=== PATIENT | female | born 1995 | race Two or more races ===

== ENCOUNTER 2021-06-17 22:34 | Emergency (ER) | payer MEDICARE, MEDICAID, SELFPAY ==
[2021-06-17 22:36] VITALS: BP 106/35; PULSE 70; RESP 16; TEMP 36.9; O2SAT 97; BMI 23.6
--- NOTE | 2021-06-17 22:47 | ED_ITS ---
HPI - Ear Problem General Chief complaint: Ear Problems Stated complaint: ear pain Time Seen by Provider: 06/17/21 22:47 Source: patient Mode of arrival: ambulatory Limitations: no limitations History of Present Illness HPI Narrative: Patient had a qtip in her ear and the qtip got pushed in. This happened yesterday. Complaint: ear pain and ear discharge Location: right ear Duration: constant Severity: mild Relieving factors: nothing Exacerbating factors: nothing Discharge from ear: yes - purulent Associated symptoms ear: decreased hearing Treatment prior to arrival: none Related Data Allergies Allergy/AdvReac Type Severity Reaction Status Date / Time No Known Allergies Allergy Verified 06/17/21 22:39 Review of Systems Constitutional: Constitutional: Reports no additional constitutional complaints Eyes: Eyes: Reports no additional eye complaints ENT: Denies dizziness Cardiovascular: Cardiovascular: Reports no additional cardiovascular complaints Respiratory: Respiratory: Reports as per HPI Gastrointestinal: Gastrointestinal: Reports no additional gastrointestinal complaints Genitourinary: Genitourinary: Reports no additional female genitourinary c omplaints Musculoskeletal: Musculoskeletal: Reports no additional musculoskeletal complaints Integumentary/Breasts: Skin/Breast: Denies rash Neurologic: Reports system reviewed and no additional complaints, except as documented, Denies dizziness and Denies Sensory deficit (Neuro) Psychiatric: Psychiatric: Denies anxiety [facility] Past Medical History Medical History No known health problems Seizure disorder Physical Exam Vital Signs: Vital Signs: Last Vital Signs Temp 98.5 F 06/17/21 22:36 Pulse 70 06/17/21 22:36 Resp 16 06/17/21 22:36 BP 106/35 L 06/17/21 22:36 Pulse Ox 97 06/17/21 22:36 Body Mass Index 23.6 Const: General: healthy appearing Nutritional Appearance: average body habitus Orientation/consciousness: oriented to person and patient oriented x3 Limitations: no limitations HENMT: Other: right and left TM are normal, no bleeding no discharge Head: Yes normal to inspection Ears: external ears normal General nose exam: Normal external nose present Mouth: Normal oral and palatal mucosa present and oropharynx normal Throat: Yes posterior oropharynx normal Eyes: General: appearance normal, both eyes and all related structures Neck: Other: supple Neck: Yes normal visual inspection Chest: Chest palpation & inspection: normal inspection of the chest Resp: Auscultation: clear to auscultation bilaterally Cardio: Jugular venous distension: no JVD Rate: regular rate Rhythm: regular rhythm Heart sounds: S1 normal heart sound present and S2 normal heart sound present GI: Inspection: Yes normal to inspection Palpation (GI): Soft to palpation, nontender and No hepatosplenomegaly present Auscultation: normal bowel sounds : General: Yes no CVA tenderness Back/Spine/Pelvis: Back: no CVA tenderness Skin: General skin exam: no rashes or lesions noted Neuro: General: oriented to person and patient oriented x3 Cranial nerves: Yes CN's II-XII intact bilaterally Motor exam (neuro): 5/5 motor strength present throughout Sensory Exam: No Sensory deficit (Neuro) Extrem: General: Yes normal to inspection Psych: Appearance: grossly normal Course Reevaluation(s) Reevaluation #1: no evidence of ear trauma will dc home Time: 22:53 Discharge Plan Discharge Clinical Impression: Otalgia Patient Disposition: Home, Self-Care Additional Instructions: tylenol or motrin for pain Referrals: Physician,Unknown [Primary Care Provider] - 10 days
[2021-06-17] MEDS: Ibuprofen 800 MG TABLET PO (23:04)
== END 2021-06-17 23:17 | disposition home or self-care (01) ==
LOC: HO.ED 23:01
PROVIDERS: Emergency Provider Emergency Medicine
DX: H92.01 Otalgia, right ear (principal)
CPT/HCPCS: 99283

== ENCOUNTER 2022-01-07 23:03 | Emergency (ER) | payer MEDICARE, MEDICAID, SELFPAY ==
--- NOTE | ~2022-01-07 | CT_ITS ---
EXAMINATION: CT ABDOMEN AND PELVIS WITH CONTRAST CLINICAL INFORMATION: Lower abdominal pain COMPARISON: None TECHNIQUE: Multidetector volumetric images were obtained from the superior aspect of the liver through the pubic symphysis following administration 85 mL of Omnipaque 350 intravenous contrast. Sagittal and coronal reformatted images were obtained on the technologist's workstation. Oral contrast: No This CT examination was performed using dose optimization techniques as appropriate, variously including the following: *Automated exposure control *Adjustment of mA and/or kV according to patient size (this includes techniques or standardized protocols for targeted exams where dose is matched to indication/reason for exam; i.e. extremities or head) *Use of iterative reconstruction technique DLP: 507 mGy-cm FINDINGS: LUNG BASES: The visualized lung bases are unremarkable. LIVER, GALLBLADDER, AND BILIARY TREE: The liver is normal in size, shape, and attenuation. No focal hepatic lesion or biliary ductal dilatation is present. The gallbladder is unremarkable with no evidence of radiopaque gallstones, gallbladder wall thickening, or obvious pericholecystic inflammatory changes. PANCREAS: Unremarkable. SPLEEN: Unremarkable. ADRENAL GLANDS: Unremarkable. KIDNEYS AND URETERS: Bilateral nephrograms are symmetric. No hydronephrosis or obstructing calculus identified. BLADDER: Unremarkable. GASTROINTESTINAL TRACT: No evidence of bowel obstruction or significant wall thickening. The appendix is unremarkable. No free fluid or free air is seen. ABDOMINAL WALL: No significant hernia is appreciated. LYMPH NODES: Normal. VASCULAR: Unremarkable. PELVIC VISCERA: Suggestion of arcuate versus septate configuration of the uterus. OSSEOUS STRUCTURES: Unremarkable. CT/CT abdomen pelvis w con IMPRESSION: 1. No acute findings identified in the abdomen/pelvis. 2. Suggestion of arcuate versus septate configuration of the uterus. If not already performed, this may be more definitively assessed with pelvic MRI. Fleischner guidelines were followed.
--- NOTE | ~2022-01-07 | CT_ITS ---
EXAMINATION: CT HEAD WITHOUT CONTRAST CLINICAL INFORMATION: Dizziness. Seizure. COMPARISON: None TECHNIQUE: Contiguous axial imaging was performed from the skull base to vertex without intravenous administration of contrast. This CT examination was performed using dose optimization techniques as appropriate, variously including the following: *Automated exposure control *Adjustment of mA and/or kV according to patient size (this includes techniques or standardized protocols for targeted exams where dose is matched to indication/reason for exam; i.e. extremities or head) *Use of iterative reconstruction technique DLP: 577 mGy-cm FINDINGS: There is no evidence of acute intracranial hemorrhage or territorial infarction. No abnormal mass effect or midline shift is seen. Bran to white matter differentiation is well preserved. No extra-axial fluid collections are identified. The ventricles are normal in size. There is no abnormal attenuation within the brain parenchyma. The osseous structures and soft tissues are normal. The mastoid air cells and visualized portions of the paranasal sinuses are well aerated. CT/CT head/brain wo con IMPRESSION: No acute intracranial pathology.
[2022-01-07 23:11] VITALS: BP 121/77; PULSE 80; O2SAT 100
--- NOTE | 2022-01-07 23:11 | ECG_ITS ---
Test Reason : SEIZURE Blood Pressure : / mmHG Vent. Rate : 089 BPM Atrial Rate : 089 BPM P-R Int : 152 ms QRS Dur : 086 ms QT Int : 380 ms P-R-T Axes : 074 064 052 degrees QTc Int : 462 ms Normal sinus rhythm Normal ECG No previous ECGs available Referred By: Clara Kwok Electronically Signed By:Stiven Modi
[2022-01-07 23:15] VITALS: BP 127/89; PULSE 109; RESP 18; O2SAT 99; BMI 25.6
--- NOTE | 2022-01-07 23:15 | ED_ITS ---
HPI - Abdominal Pain General Chief Complaint: Seizure Stated Complaint: abdominal pain/ seizure Time Seen by Provider: 01/07/22 23:04 Source: patient and EMS Mode of arrival: EMS Limitations: other (not speaking) History of Present Illness HPI narrative: has seizures while she sleeps takes no medications has seen neurologists told her tests were normal and doesn't need medications MD elicited complaint: abdominal pain (c/o pain at 1 year old c- section site then reportedly had GTC seizure for 10 minutes at home per EMS no prior seizures per family no trauma) Pertinent past history: none Onset (ago): week(s) (1 week ago started with irregular vaginal bleeding with large blood clots, prior LMP just a couple weeks earlier she is not on OCPs) Pain Consistency: intermittent Location: pelvis Severity: mild Quality: cramping Radiation: none Migration to: no migration Exacerbating factors: nothing Relieving factors: nothing Associated symptoms: nausea Related Data Allergies Allergy/AdvReac Type Severity Reaction Status Date / Time No Known Allergies Allergy Verified 06/17/21 22:39 Review of Systems Review of Systems Constitutional : No Weight loss, No Fever, No Chills ENT/Mouth : No sore throat, No Rhinorrhea Eyes: No Swelling, No Redness Cardiovascular : No Chest Pain, No SOB, NoEdema Respiratory : No Cough, No Sputum, No Wheezing Gastrointestinal : Positive Nausea, no Vomiting, no Diarrhea, positive abdominal Pain, No Hematochezia, No Melena Genitourinary : No Dysuria, No Urinary Frequency, No Hematuria, No Urgency, pos irregular bleeding Musculoskeletal : No joint pain, No Myalgias, No Joint Swelling Skin : No Skin Lesions, No rash Neuro : No Weakness, No Numbness, No Dizziness, No Headache, pos seizure activity Psych : No Anxiety/Panic, No Depression Heme/Lymph: No Bruising, No Lymphadenopathy Endocrine : No Polyuria, No Polydipsia All other systems reviewed and are negative. Physical Exam Vital Signs: Vital Signs: Last Vital Signs Pulse 77 01/08/22 06:37 Resp 14 01/08/22 06:37 BP 124/74 01/08/22 06:37 Pulse Ox 98 01/08/22 06:37 BMI result Body Mass Index 25.6 Appearance: Alert. Oriented X3. No acute distress. initially didn't cooperate but then started to talk - she was purposeful when she came in would not allow her arm to fall on her face, moved away from stimuli Eyes: Pupils equal, round and reactive to light. ENT: Pharynx normal. Neck: Normal inspection. Neck supple. CVS: Normal heart rate and rhythm. Pulses normal. Respiratory: No respiratory distress. Breath sounds normal. Abdomen: Soft and mild suprapubic no rebound or guarding : no vaginal bleeding noted Skin: Skin warm and dry. Normal skin color. Normal skin turgor. Extremities: No lower extremity edema. No calf ttp Neuro: Oriented X 3. No motor deficit. No sensory deficit. Course Course Course Narrative: stable H/H will need outpatient US of uterus, will start on provera no sig hemorrhage here patient without vaginal bleeding here GCS 15, sleepy but easily woken c/o dizziness and seizure activity - has had work up in the past including what sounds like EEG and MRI she is still slightly dizzy no seizure activity here - returned to baseline, will obtain CT head to r/o mass. denies STI concerns, UA negative, will hydrate and DC after IVF patient had another shaking episode but was not postictal and had no incontinence, no nystagmus, no tongue biting it was localized to RLE, she cannot tell us much about why she came off seizure meds - she isn't sure what she was on but states she has a reaction to white pills in the past and told she didn't need pills. signed out to Dr. Correa pending CT scan of brain MDM - Abdominal Pain MDM Narrative Medical decision making narrative: 26 yo female with reported sleep seizures here with 2 complaints - one is irregular vaginal bleeding will need quant test, CT scan given pain at incision site for infection/seroma though unlikely. Also reports chronic seizures for which she has seen neurology and told she doesn't need medications has no head trauma no focal deficits and is at baseline. Dispo per results and findings. Lab Data Result diagrams: 01/07/22 23:30 01/07/22 23:30 Labs: Lab Results 01/07/22 01/07/22 01/07/22 Range/Units 23:30 23:30 23:30 WBC 9.3 (4.8-10.8) X10*3/uL RBC 4.33 (4.20-5.50) X10*6/uL Hgb 13.0 (12.0-16.0) g/dl Hct 39.0 (37.0-47.0) % MCV 90.1 (80.0-98.0) fL MCH 30.0 (27.0-33.0) pg MCHC 33.3 (31.0-35.0) g/dl RDW 12.2 (11.0-16.0) % Plt Count 284 (160-400) X10*3/uL MPV 10.3 (9.4-12.3) fL Immature Gran % (Auto) 0.3 (0.0-0.4) % Neut % (Auto) 65.7 (45-73) % Lymph % (Auto) 26.7 (20-40) % [place] % (Auto) 5.8 (2-11) % Eos % (Auto) 1.2 (0-4) % Baso % (Auto) 0.3 (0-2) % Lymph # (Auto) 2.5 (1.2-4.9) X10*3/uL [place] # (Auto) 0.5 (0.1-1.2) X10*3/uL Eos # (Auto) 0.1 (0.0-0.4) X10*3/uL Baso # (Auto) 0.0 (0.0-0.2) X10*3/uL Abs Immat Gran (auto) 0.03 (0.00-0.03) X10*3/uL Absolute Neuts (auto) 6.1 (2.0-8.3) x10*3/uL Absolute Nucleated RBC 0.000 (0.0-0.012) X10*3/uL Nucleated RBC % (auto) 0.0 (0.0-0.2) /100WBC VBG pH (7.32-7.43) VBG pCO2 mmHg VBG pO2 mmHg VBG HCO3 (22-26) mmol/L VBG O2 Saturation % VBG Base Excess mmol/L Sodium 138 (135-145) mmol/L Potassium 3.8 (3.3-5.1) mmol/L Chloride 104 (96-108) mmol/L Carbon Dioxide 26 (22-29) mmol/L Anion Gap 12 (12-20) BUN 11 (9-16) mg/dL Creatinine 0.80 (0.5-1.4) mg/dL Estim Creat Clear Calc 99.9 Estimated GFR > 60 Random Glucose 120 H (60-115) mg/dL Calcium 9.5 (8.4-10.2) mg/dL Magnesium 1.7 (1.6-2.6) mg/dL Total Bilirubin 0.9 (0.0-1.0) mg/dL Direct Bilirubin 0.4 (0.0-0.5) mg/dL AST 14 (5-31) U/L ALT 7 (0-31) U/L Alkaline Phosphatase 74 (39-117) U/L Ammonia 29 (13-55) umol/L Total Protein 7.1 (6.5-8.0) g/dL Albumin 4.4 (3.5-5.0) g/dL Lipase 17 (8-78) U/L Beta HCG, Quant mIU/mL Urine Color Urine Appearance Urine pH (5.0-8.0) Ur Specific [place] (1.005-1.025) Urine Protein (NEG-TRACE) MG/DL Urine Glucose (UA) (NEG) MG/DL Urine Ketones (NEG) MG/DL Urine Blood (NEG) Urine Nitrite (NEG) Ur Leukocyte Esterase (NEG) Urine Opiates Screen (Not Detect) Urine Fentanyl Screen (Not Detect) Ur Barbiturates Screen (Not Detect) Ur Phencyclidine Scrn (Not Detect) Ur Amphetamines Screen (Not Detect) U Benzodiazepines Scrn (Not Detect) Urine Cocaine Screen (Not Detect) U Marijuana (THC) Screen (Not Detect) Ethyl Alcohol mg/dL COVID-19 (HOSSEIN) (Negative) COVID-19 Clin Com 01/07/22 01/07/22 01/07/22 Range/Units 23:30 23:30 23:30 WBC (4.8-10.8) X10*3/uL RBC (4.20-5.50) X10*6/uL Hgb (12.0-16.0) g/dl Hct (37.0-47.0) % MCV (80.0-98.0) fL MCH (27.0-33.0) pg MCHC (31.0-35.0) g/dl RDW (11.0-16.0) % Plt Count (160-400) X10*3/uL MPV (9.4-12.3) fL Immature Gran % (Auto) (0.0-0.4) % Neut % (Auto) (45-73) % Lymph % (Auto) (20-40) % [place] % (Auto) (2-11) % Eos % (Auto) (0-4) % Baso % (Auto) (0-2) % Lymph # (Auto) (1.2-4.9) X10*3/uL [place] # (Auto) (0.1-1.2) X10*3/uL Eos # (Auto) (0.0-0.4) X10*3/uL Baso # (Auto) (0.0-0.2) X10*3/uL Abs Immat Gran (auto) (0.00-0.03) X10*3/uL Absolute Neuts (auto) (2.0-8.3) x10*3/uL Absolute Nucleated RBC (0.0-0.012) X10*3/uL Nucleated RBC % (auto) (0.0-0.2) /100WBC VBG pH (7.32-7.43) VBG pCO2 mmHg VBG pO2 mmHg VBG HCO3 (22-26) mmol/L VBG O2 Saturation % VBG Base Excess mmol/L Sodium (135-145) mmol/L Potassium (3.3-5.1) mmol/L Chloride (96-108) mmol/L Carbon Dioxide (22-29) mmol/L Anion Gap (12-20) BUN (9-16) mg/dL Creatinine (0.5-1.4) mg/dL Estim Creat Clear Calc Estimated GFR Random Glucose (60-115) mg/dL Calcium (8.4-10.2) mg/dL Magnesium (1.6-2.6) mg/dL Total Bilirubin (0.0-1.0) mg/dL Direct Bilirubin (0.0-0.5) mg/dL AST (5-31) U/L ALT (0-31) U/L Alkaline Phosphatase (39-117) U/L Ammonia (13-55) umol/L Total Protein (6.5-8.0) g/dL Albumin (3.5-5.0) g/dL Lipase (8-78) U/L Beta HCG, Quant < 2 mIU/mL Urine Color Urine Appearance Urine pH (5.0-8.0) Ur Specific [place] (1.005-1.025) Urine Protein (NEG-TRACE) MG/DL Urine Glucose (UA) (NEG) MG/DL Urine Ketones (NEG) MG/DL Urine Blood (NEG) Urine Nitrite (NEG) Ur Leukocyte Esterase (NEG) Urine Opiates Screen (Not Detect) Urine Fentanyl Screen (Not Detect) Ur Barbiturates Screen (Not Detect) Ur Phencyclidine Scrn (Not Detect) Ur Amphetamines Screen (Not Detect) U Benzodiazepines Scrn (Not Detect) Urine Cocaine Screen (Not Detect) U Marijuana (THC) Screen (Not Detect) Ethyl Alcohol < 10 mg/dL COVID-19 (HOSSEIN) Negative (Negative) COVID-19 Clin Com See Note 01/07/22 01/08/22 01/08/22 Range/Units 23:38 06:04 06:04 WBC (4.8-10.8) X10*3/uL RBC (4.20-5.50) X10*6/uL Hgb (12.0-16.0) g/dl Hct (37.0-47.0) % MCV (80.0-98.0) fL MCH (27.0-33.0) pg MCHC (31.0-35.0) g/dl RDW (11.0-16.0) % Plt Count (160-400) X10*3/uL MPV (9.4-12.3) fL Immature Gran % (Auto) (0.0-0.4) % Neut % (Auto) (45-73) % Lymph % (Auto) (20-40) % [place] % (Auto) (2-11) % Eos % (Auto) (0-4) % Baso % (Auto) (0-2) % Lymph # (Auto) (1.2-4.9) X10*3/uL [place] # (Auto) (0.1-1.2) X10*3/uL Eos # (Auto) (0.0-0.4) X10*3/uL Baso # (Auto) (0.0-0.2) X10*3/uL Abs Immat Gran (auto) (0.00-0.03) X10*3/uL Absolute Neuts (auto) (2.0-8.3) x10*3/uL Absolute Nucleated RBC (0.0-0.012) X10*3/uL Nucleated RBC % (auto) (0.0-0.2) /100WBC VBG pH 7.42 (7.32-7.43) VBG pCO2 35 mmHg VBG pO2 73 mmHg VBG HCO3 23 (22-26) mmol/L VBG O2 Saturation 95.0 % VBG Base Excess -0.5 mmol/L Sodium (135-145) mmol/L Potassium (3.3-5.1) mmol/L Chloride (96-108) mmol/L Carbon Dioxide (22-29) mmol/L Anion Gap (12-20) BUN (9-16) mg/dL Creatinine (0.5-1.4) mg/dL Estim Creat Clear Calc Estimated GFR Random Glucose (60-115) mg/dL Calcium (8.4-10.2) mg/dL Magnesium (1.6-2.6) mg/dL Total Bilirubin (0.0-1.0) mg/dL Direct Bilirubin (0.0-0.5) mg/dL AST (5-31) U/L ALT (0-31) U/L Alkaline Phosphatase (39-117) U/L Ammonia (13-55) umol/L Total Protein (6.5-8.0) g/dL Albumin (3.5-5.0) g/dL Lipase (8-78) U/L Beta HCG, Quant mIU/mL Urine Color YELLOW Urine Appearance CLEAR Urine pH 6.5 (5.0-8.0) Ur Specific [place] 1.010 (1.005-1.025) Urine Protein NEG (NEG-TRACE) MG/DL Urine Glucose (UA) NEG (NEG) MG/DL Urine Ketones NEG (NEG) MG/DL Urine Blood NEG (NEG) Urine Nitrite NEG (NEG) Ur Leukocyte Esterase NEG (NEG) Urine Opiates Screen Not Detected (Not Detect) Urine Fentanyl Screen Not Detected (Not Detect) Ur Barbiturates Screen Not Detected (Not Detect) Ur Phencyclidine Scrn Not Detected (Not Detect) Ur Amphetamines Screen Not Detected (Not Detect) U Benzodiazepines Scrn Not Detected (Not Detect) Urine Cocaine Screen Not Detected (Not Detect) U Marijuana (THC) Screen Not Detected (Not Detect) Ethyl Alcohol mg/dL COVID-19 (HOSSEIN) (Negative) COVID-19 Clin Com ECG Data Attestation: I personally reviewed and interpreted this ECG as follows: ECG interpretation date: 01/07/22 ECG interpretation time: 23:23 Interpretation: Rate: 89 Rhythm: NSR [place]: normal Normal P waves. Normal RAFAEL. Normal QRS complex. ST T wave : normal no SONIA qTC: normal prior studies: no acute ischemia The study has been interpreted contemporaneously by me. Discharge Plan Discharge Clinical Impression: Generalized seizure, DUB (dysfunctional uterine bleeding) Patient Disposition: Home, Self-Care Instructions: Dysfunctional Uterine Bleeding (ED), Recurrent Seizures in Adults (ED) Additional Instructions: return to ED for any worsening symptoms or concerns please follow up with your OBGYN and Neurologist as soon as possible stay with responsible adult for the next 24 hours no anemia, negative blood test for Referrals: Catracho Rodriguez MD [Physician] - 1 week Stand Alone Forms: Work/School Release [facility] Past Medical History Attestation statement: The following information was validated with the patient. Medical History No known health problems Seizure disorder Surgical History H/O section Social History Social History (Updated 01/08/22 @ 00:28 by Clara Kwok DO) Patient Tobacco Use Status: Never used Tobacco Advance Directives: No Patient : No
[2022-01-07 23:40] LABS: Basophils Percent Auto 0.3 % (0-2); Eosinophils Absolute Auto 0.1 X10*3/uL (0.0-0.4); Eosinophils Percent Auto 1.2 % (0-4); Imm Gran Abs Auto 0.03 X10*3/uL (0.00-0.03); Imm Gran Pct Auto 0.3 % (0.0-0.4); Lymphocytes Absolute Auto 2.5 X10*3/uL (1.2-4.9); Lymphocytes Percent Auto 26.7 % (20-40); MANUAL DIFF FLAG NO; Mean Corpuscular HGB Conc 33.3 g/dl (31.0-35.0); Mean Corpuscular Volume 90.1 fL (80.0-98.0); Mean Platelet Volume 10.3 fL (9.4-12.3); Monocytes Absolute Auto 0.5 X10*3/uL (0.1-1.2); Monocytes Percent Auto 5.8 % (2-11); Neutrophils Absolute Auto 6.1 x10*3/uL (2.0-8.3); Neutrophils Percent Auto 65.7 % (45-73); Platelet Count 284 X10*3/uL (160-400); Red Blood Count 4.33 X10*6/uL (4.20-5.50); Red Cell Distribution Width 12.2 % (11.0-16.0); White Blood Count 9.3 X10*3/uL (4.8-10.8)
[2022-01-07 23:45] LABS: VBG Base Excess -0.5 mmol/L; VBG HCO3 23 mmol/L (22-26); VBG pCO2 35 mmHg; VBG pH 7.42 (7.32-7.43); VBG pO2 73 mmHg
[2022-01-07 23:45] LABS: Venous Blood Gas Refer to POC result
[2022-01-07 23:48] LABS: Ammonia 29 umol/L (13-55)
[2022-01-07 23:59] LABS: COVID-19 Test Negative (Negative); IDNOW Serial# 9DD0AD1C
[2022-01-08 00:06] LABS: Ethanol < 10 mg/dL
--- NOTE | 2022-01-08 00:07 | PC.NURSE ---
pt sister called and pt states it is okay to give information to her per pt. sister Vi [phone]
[2022-01-08 00:09] LABS: Alanine Aminotransferase 7 U/L (0-31); Albumin Level 4.4 g/dL (3.5-5.0); Alkaline Phosphatase 74 U/L (39-117); Anion Gap 12 (12-20); Aspartate Amino Transferase 14 U/L (5-31); Bilirubin Direct 0.4 mg/dL (0.0-0.5); Bilirubin Total 0.9 mg/dL (0.0-1.0); Blood Urea Nitrogen 11 mg/dL (9-16); Calcium 9.5 mg/dL (8.4-10.2); Carbon Dioxide 26 mmol/L (22-29); Chloride 104 mmol/L (96-108); Creatinine Clr Calc Pharmacy 99.9; Estimated Glomerular Filt Rate > 60; Glucose Random 120 mg/dL (60-115); Lipase 17 U/L (8-78); Magnesium 1.7 mg/dL (1.6-2.6); Potassium 3.8 mmol/L (3.3-5.1); Sodium 138 mmol/L (135-145); Total Protein 7.1 g/dL (6.5-8.0)
--- NOTE | 2022-01-08 00:09 | PC.NURSE ---
pt and pt sister both stated pt has had a c section 2 years ago and never followed up with doctor. pt has been passing clots for one week and has had abd pain. pt is alert and oriented with no distress noted. vitals stble.
[2022-01-08 00:15] LABS: HCG Quantitative < 2 mIU/mL
[2022-01-08] MEDS: iohexoL 350 MG/ML 100 ML INFUS..BTL 85 ML IV (00:48)
[2022-01-08] MEDS: Ketorolac Tromethamine 15 MG/ML VIAL IVPUSH (01:07)
[2022-01-08] MEDS: 0.9 % Sodium Chloride 500 ML IV (01:08)
[2022-01-08 02:45] VITALS: BP 95/48; PULSE 78; RESP 12; O2SAT 97
[2022-01-08 02:46] VITALS: BP 105/47; PULSE 80; RESP 14
[2022-01-08 04:31] VITALS: BP 97/42; PULSE 64; RESP 14; O2SAT 97
[2022-01-08 06:01] VITALS: BP 104/60; PULSE 93; RESP 17; O2SAT 95
[2022-01-08 06:12] LABS: Appearance Urine CLEAR; Color Urine YELLOW; Glucose Urine UA NEG (NEG); Leukocyte Esterase Urine NEG (NEG); Nitrite Urine NEG (NEG); PH 6.5 (5.0-8.0); Urine Blood NEG (NEG); Urine Ketones NEG (NEG); Urine Protein NEG (NEG-TRACE)
[2022-01-08 06:29] LABS: Amphetamine Screen Urine Not Detected (Not Detect); Barbiturates, Urine Not Detected (Not Detect); Benzodiazepines Screen Urine Not Detected (Not Detect); Cannabinoid Screen Urine Not Detected (Not Detect); Cocaine Screen Urine Not Detected (Not Detect); Fentanyl, urine Not Detected (Not Detect); Opiate Screen Urine Not Detected (Not Detect); Phencyclidine Screen Urine Not Detected (Not Detect)
[2022-01-08 06:37] VITALS: BP 124/74; PULSE 77; RESP 14; O2SAT 98
[2022-01-08 09:35] VITALS: BP 101/54; PULSE 87; RESP 18; O2SAT 99
== END 2022-01-08 11:21 | disposition home or self-care (01) ==
PROVIDERS: Emergency Medicine; Emergency Provider Emergency Medicine Emergency Medical Services
DX: G40.409 Other generalized epilepsy and epileptic syndromes, not intractable, without status epilepticus (principal); N93.8 Other specified abnormal uterine and vaginal bleeding; Z20.822 Contact with and (suspected) exposure to COVID-19
CPT/HCPCS: 36415; 70450; 74177; 80048; 80076; 80307; 81003; 82077; 82140; 82803; 83690; 83735; 84702; 85025; 87635; 93005; 96361; 96374; 96375; 99284; J1885; Q9967

== ENCOUNTER 2022-04-13 22:00 | Emergency (ER) | payer MEDICARE, MEDICAID, SELFPAY ==
--- NOTE | 2022-04-13 | ECG_ITS ---
Test Reason : chest pain Blood Pressure : / mmHG Vent. Rate : 067 BPM Atrial Rate : 067 BPM P-R Int : 154 ms QRS Dur : 082 ms QT Int : 442 ms P-R-T Axes : 058 039 039 degrees QTc Int : 467 ms Normal sinus rhythm Normal ECG When compared with ECG of 07-JAN-2022 23:09, No significant change was found Referred By: Generic ED Physician Electronically Signed By:ISAIAH CRUZ
[2022-04-13 22:29] VITALS: BP 105/51; PULSE 82; RESP 18; TEMP 36.4; O2SAT 100; BMI 22.6
[2022-04-13 22:38] LABS: MANUAL DIFF FLAG NO
[2022-04-13 22:39] LABS: Basophils Percent Auto 0.6 % (0-2); Eosinophils Absolute Auto 0.2 X10*3/uL (0.0-0.4); Eosinophils Percent Auto 2.1 % (0-4); Hematocrit 37.4 % (37.0-47.0); Hemoglobin 12.4 g/dl (12.0-16.0); Imm Gran Abs Auto 0.02 X10*3/uL (0.00-0.03); Imm Gran Pct Auto 0.3 % (0.0-0.4); Lymphocytes Absolute Auto 1.9 X10*3/uL (1.2-4.9); Lymphocytes Percent Auto 26.9 % (20-40); Mean Corpuscular HGB Conc 33.2 g/dl (31.0-35.0); Mean Corpuscular Hemoglobin 30.1 pg (27.0-33.0); Mean Corpuscular Volume 90.8 fL (80.0-98.0); Mean Platelet Volume 10.3 fL (9.4-12.3); Monocytes Absolute Auto 0.5 X10*3/uL (0.1-1.2); Neutrophils Absolute Auto 4.5 x10*3/uL (2.0-8.3); Neutrophils Percent Auto 63.1 % (45-73); Platelet Count 233 X10*3/uL (160-400); Red Blood Count 4.12 X10*6/uL (4.20-5.50); Red Cell Distribution Width 12.4 % (11.0-16.0); White Blood Count 7.1 X10*3/uL (4.8-10.8)
[2022-04-13 23:01] LABS: Alanine Aminotransferase 12 U/L (0-31); Albumin Level 4.3 g/dL (3.5-5.0); Alkaline Phosphatase 82 U/L (39-117); Anion Gap 10 (12-20); Aspartate Amino Transferase 14 U/L (5-31); Bilirubin Total 1.4 mg/dL (0.0-1.0); Blood Urea Nitrogen 13 mg/dL (9-16); Calcium 9.6 mg/dL (8.4-10.2); Carbon Dioxide 27 mmol/L (22-29); Chloride 108 mmol/L (96-108); Creatinine Clr Calc Pharmacy 77.9; Estimated Glomerular Filt Rate > 60; Glucose Random 75 mg/dL (60-115); Potassium 3.9 mmol/L (3.3-5.1); Sodium 141 mmol/L (135-145); Total Protein 7.1 g/dL (6.5-8.0)
[2022-04-13 23:07] LABS: Troponin-I High Sensitivity < 3.5 ng/L (<3.5-17.0)
== END 2022-04-14 07:15 | disposition left against medical advice (07) ==
PROVIDERS: Emergency Provider Emergency Medicine
DX: R07.9 Chest pain, unspecified (principal); R42 Dizziness and giddiness
CPT/HCPCS: 36415; 80053; 84484; 85025; 93005; 99281; 99283

== ENCOUNTER 2022-08-27 20:12 | Emergency (ER) | payer OTHER, SELFPAY ==
[2022-08-27 20:24] VITALS: BP 106/34; PULSE 67; RESP 18; TEMP 37.2; O2SAT 98; BMI 32.3
[2022-08-27 20:36] LABS: MANUAL DIFF FLAG NO
[2022-08-27 20:38] LABS: Basophils Absolute Auto 0.1 X10*3/uL (0.0-0.2); Basophils Percent Auto 0.6 % (0-2); Eosinophils Absolute Auto 0.1 X10*3/uL (0.0-0.4); Eosinophils Percent Auto 1.3 % (0-4); Hematocrit 37.8 % (37.0-47.0); Hemoglobin 12.4 g/dl (12.0-16.0); Imm Gran Abs Auto 0.04 X10*3/uL (0.00-0.03); Imm Gran Pct Auto 0.4 % (0.0-0.4); Lymphocytes Absolute Auto 2.9 X10*3/uL (1.2-4.9); Lymphocytes Percent Auto 29.4 % (20-40); Mean Corpuscular HGB Conc 32.8 g/dl (31.0-35.0); Mean Corpuscular Volume 88.5 fL (80.0-98.0); Mean Platelet Volume 10.2 fL (9.4-12.3); Monocytes Absolute Auto 0.6 X10*3/uL (0.1-1.2); Monocytes Percent Auto 5.7 % (2-11); Neutrophils Absolute Auto 6.2 x10*3/uL (2.0-8.3); Neutrophils Percent Auto 62.6 % (45-73); Platelet Count 273 X10*3/uL (160-400); Red Blood Count 4.27 X10*6/uL (4.20-5.50); Red Cell Distribution Width 13.4 % (11.0-16.0); White Blood Count 9.9 X10*3/uL (4.8-10.8)
[2022-08-27 20:55] LABS: COVID-19 Test Negative (Negative)
[2022-08-27 21:13] LABS: Alanine Aminotransferase 14 U/L (0-31); Albumin Level 4.5 g/dL (3.5-5.0); Alkaline Phosphatase 81 U/L (39-117); Anion Gap 16 (12-20); Aspartate Amino Transferase 16 U/L (5-31); Bilirubin Direct 0.4 mg/dL (0.0-0.5); Bilirubin Total 1.2 mg/dL (0.0-1.0); Blood Urea Nitrogen 17 mg/dL (9-16); Calcium 9.3 mg/dL (8.4-10.2); Carbon Dioxide 22 mmol/L (22-29); Chloride 106 mmol/L (96-108); Creatinine Clr Calc Pharmacy 97.4; Estimated Glomerular Filt Rate > 60; Glucose Random 90 mg/dL (60-115); Lipase 25 U/L (8-78); Potassium 3.8 mmol/L (3.3-5.1); Sodium 140 mmol/L (135-145); Total Protein 7.5 g/dL (6.5-8.0)
[2022-08-27 21:37] VITALS: BP 113/47; PULSE 75; RESP 18; TEMP 36.8; O2SAT 100
[2022-08-27 21:51] LABS: Appearance Urine Clear; Color Urine Yellow; Glucose Urine UA Negative (Negative); Leukocyte Esterase Urine Small (1+) (Negative); Nitrite Urine Negative (Negative); PH 6.5 (5.0-9.0); Specific Gravity - Urine 1.025 (1.005-1.025); UMIC TRIGGER UACC YES; Urine Blood Trace (Negative); Urine Ketones Negative (Negative); Urine Protein Negative (Neg-Trace)
[2022-08-27 21:54] LABS: UPreg QC Valid YES; Urine Pregnancy NEGATIVE (NEGATIVE)
[2022-08-27 22:09] LABS: Bacteria Urine Trace (None Seen); Hyaline Casts Urine 0-2 /LPF (0-2); UACC Culture Trigger YES; WBC Urine 0-5 /HPF (0-5)
[2022-08-27 22:20] VITALS: BP 108/48; PULSE 66; RESP 15; O2SAT 100
--- OUTSIDE RECORDS SUMMARY | 2022-08-27 22:25 | XMS_ITS | Continuity of Care Document ---
:1995 Author Organization [facility] Address [address] [place] [address]- Care Team Providers Name Role Phone Jose L MIDDLETON, Anel Primary Care Physician Encounter [facility] [place] Date(s): 01/27/21 - 02/26/21 [facility] [address] [place] [id number] Allergies, Adverse Reactions, Alerts No Known Medication Allergies Immunizations Given and Recorded Vaccine Date Status Refusal Reason influenza virus vaccine, inactivated 09/13/18 Given influenza virus vaccine, inactivated 09/06/16 Given influenza virus vaccine, inactivated 09/27/13 Given tetanus/diphtheria/pertussis, acel(Tdap) 02/15/17 Given Influenza Vaccine (oldterm)1 07/24/12 Given Influenza Vaccine (oldterm)2 10/02/08 Given Human Papillomavirus Vaccine3 07/24/12 Given Human Papillomavirus Vaccine4 10/02/08 Given Human Papillomavirus Vaccine 07/20/07 Given Meningococcal Polysaccharide Vaccine5 07/24/12 Given Varicella Virus Vaccine6 07/24/12 Given Varicella Virus Vaccine 07/20/07 Given Tet/Diphth/Acel, Pertussis (oldterm) 07/20/07 Given Meningococcal Conjugate Vaccine 07/20/07 Given Poliovirus Vaccine, Inactivated7 11/17/98 Given Poliovirus Vaccine, Inactivated 11/25/97 Given Poliovirus Vaccine, Inactivated 06/24/95 Given Poliovirus Vaccine, Inactivated 04/24/95 Given Poliovirus Vaccine, Inactivated 94 Given Diphth/Pertussis, Whl Cell/Tet(oldterm) 11/17/98 Given Diphth/Pertussis, Whl Cell/Tet(oldterm) 06/11/96 Given Diphth/Pertussis, Whl Cell/Tet(oldterm)8 06/24/95 Given Diphth/Pertussis, Whl Cell/Tet(oldterm) 04/24/95 Given Diphth/Pertussis, Whl Cell/Tet(oldterm) 94 Given Measles/Mumps/Rubella Virus Vaccine 11/25/97 Given Measles/Mumps/Rubella Virus Vaccine 06/24/95 Given Haemophilus B Conj Vaccine (oldterm) 06/24/95 Given Haemophilus B Conj Vaccine (oldterm) 04/24/95 Given Haemophilus B Conj Vaccine (oldterm) 94 Given Hepatitis B Vaccine (old term) 04/24/95 Given Hepatitis B Vaccine (old term) 94 Given Hepatitis B Vaccine (old term) 94 Given 1Admin Note: vis given 05/29/[id number] Note: VIS [id number] Note: vis given Admin Note: VIS [id number] Note: VIS Admin Note: VIS 02/08/2008 7Admin Note: hx varicella '[id number] Note: as default missing dates doc. Medications Chloraseptic 6 mg-10 mg mucous membrane lozenge 1 lozenge, By Mouth, Every 2 hours, PRN for sore throat, # 18 each, 1 Refills, Maintenance, 07/15/2012:28:00 EDT, Lozenge, [id number], 1 lozenge By Mouth Every 2 hours,PRN:for sore throat, 155, cm, 06/10/20 8:28:00 EDT, Height, 77, k... Start Date: 07/15/20 Status: Ordered Problem List Condition Effective Dates Status Health Status Informant Learning difficulties(Confirmed) Active Myopia(Confirmed) Active Vitamin D deficiency(Confirmed) 01/30/14 Active Social History Social History Type Response Tobacco Use: 4 or less cigarettes(le ss than 1/4 pack)/day in last 30 days. Sex Female
--- OUTSIDE RECORDS SUMMARY | 2022-08-27 22:25 | XMS_ITS | Continuity of Care Document ---
:1994 Author Organization [facility] Address [address] [place] [id number]- Care Team Providers Name Role Phone Anel Domingo MD Primary Care Physician [facility]counter [facility] Date(s): 06/10/21 - 07/10/21 [facility] [address] [place] [id number] Allergies, Adverse Reactions, Alerts No Known Medication Allergies Immunizations Given and Recorded Vaccine Date Status Refusal Reason influenza virus vaccine, inactivated 09/13/18 Given influenza virus vaccine, inactivated 09/06/16 Given influenza virus vaccine, inactivated 09/14/14 Recorded influenza virus vaccine, inactivated 09/27/13 Given tetanus/diphtheria/pertussis, [...] term) 94 Given 1Admin Note: vis given 05/29/201278808Mopvl Note: VIS Xoqjn7Yohmc Note: vis given Admin Note: VIS Rbemo0Lusnw Note: VIS Admin Note: VIS 02/08/2008 7Admin Note: hx varicella '8Admin Note: as default missing dates doc. Medications Chloraseptic 6 mg-10 mg mucous membrane lozenge 1 lozenge, By Mouth, Every 2 hours, PRN for sore throat, # 18 each, 1 Refills, Maintenance, 07/15/2012:28:00 EDT, Lozenge, [facility] #[id number], 1 lozenge By Mouth Every 2 hours,PRN:for sore throat, 155, cm, 06/10/20 8:28:00 EDT, Height, 77, k... Start Date: 07/15/20 Status: OrderedTEGretol XR 200 mg oral tablet, extended release 1 tablet = 200 mg, By Mouth, 2 times a day, Px by Neurology Dr Clarisa Mcfarland MD, # 60 tablet, 0 Refills, Maintenance, 04/05/21 14:49:00 EDT, ER Tablet, Partial fill upon patient request if the prescription is for a schedule II opioid drug. Start Date: 04/05/21 Status: OrderedTylenol 8 Hour 650 mg oral tablet, extended release 1 tablet = 650 mg, By Mouth, Every 8 hours, PRN as needed for pain, # 50 tablet, 0 Refills, Maintenance, 04/02/21 13:41:00 EDT, ER Tablet, [facility] #[id number], Partial fill upon patient requestif the prescription is for a schedule II opioid d... Start Date: 04/02/21 Status: Ordered Problem List Condition Effective Dates Status Health Status Informant Learning difficulties(Confirmed) Active Myopia(Confirmed) Active On EEG.(Confirmed) Active Vitamin D deficiency(Confirmed) 01/30/14 Active Social History Social History Type Response Tobacco Use: 4 or less cigarettes(le ss than 1/4 pack)/day in last 30 days. Sex Female
--- OUTSIDE RECORDS SUMMARY | 2022-08-27 22:25 | XMS_ITS | Continuity of Care Document ---
:1994 Author Organization [facility] Address [address] [place] [address]- Care Team Providers Name Role Phone Anel Domingo MD Primary Care Physician Encounter [facility] [place] Date(s): 01/27/21 - 02/26/[address] [address] Attending Physician: Maco Torres Admitting Physician: Maco Torres Referring Physician: Maco Torres Allergies, Adverse Reactions, Alerts No Known Medication [...] term) 94 Given 1Admin Note: vis given 05/29/201291308Lszeb Note: VIS Lkzdw9Giiim Note: vis given Admin Note: VIS Sycld1Clibn Note: VIS Admin Note: VIS 02/08/2008 7Admin Note: hx varicella '948Admin Note: as default missing dates doc. Medications Chloraseptic 6 mg-10 mg mucous membrane lozenge 1 lozenge, By Mouth, Every 2 hours, PRN for sore throat, # 18 each, 1 Refills, Maintenance, 07/15/2012:28:00 EDT, Lozenge, [facility][id number], 1 lozenge By Mouth Every 2 hours,PRN:for [...]
--- OUTSIDE RECORDS SUMMARY | 2022-08-27 22:25 | XMS_ITS | Continuity of Care Document ---
:1994 Author Organization [facility] Address [address] [place] [address]- Care Team Providers Name Role Phone Jose L MIDDLETON, Anel Primary Care Physician [facility]counter [facility] Date(s): 10/27/21 - 11/26/21 [facility] [address] [place] [id number] Attending Physician: Maco Torres Admitting Physician: Maco Torres Referring Physician: AdmtrMaco Allergies, Adverse Reactions, Alerts Substance Reaction Severity Status TEGretol XR Active Immunizations Given and Recorded Vaccine Date Status [...] term) 94 Given 1Admin Note: vis given 05/29/201279484Mvgwt Note: VIS Ybnxt4Vriac Note: vis given Admin Note: VIS Tmytc1Elyij Note: VIS Admin Note: VIS 02/08/2008 7Admin Note: hx varicella '948Admin Note: as default missing dates doc. Medications hydrOXYzine pamoate 25 mg oral capsule 1 capsule = 25 mg, By Mouth, 4 times a day, PRN for anxiety, # 40 capsule, 0 Refills, Maintenance, 09/25/21 10:24:00 EDT, Capsule, [facility] #[id number], Partial fill upon patient request if the prescription is for a schedule II opioid drug., 15... Start Date: 09/25/21 Status: OrderedLexapro 5 mg oral tablet 1 tablet = 5 mg, By Mouth, Daily, # 30 tablet, 0 Refills, Maintenance, 10/16/21 10:17:00 EST, Tablet, [facility] #[id number], Partial fill upon patient request if the prescription is for a schedule II opioid drug., 155, cm, 10/16/21 9:35:00 EST,... Start Date: 10/16/21 Status: Orderedmelatonin 3 mg oral tablet, extended release 1 tablet = 3 mg, By Mouth, Daily at bedtime, PRN as needed for insomnia, # 15 tablet, 0 Refills, Maintenance, 09/25/21 10:24:00 EDT, ER Tablet, [facility] #[id number], Partial fill upon patient request if the prescription is for a schedule II opi... Start Date: 09/25/21 Status: Orderednaproxen 500 mg oral tablet 1 tablet, By Mouth, 2 times a day, PRN NEEDED FOR MILD PAIN, # 60 tablet, 0 Refills, Maintenance,09/25/21 10:27:00 EDT, [facility] #[id number], 155, cm, 09/25/21 9:35:00 EDT, Height Start Date: 09/25/21 Status: Ordered Problem List Condition Effective Dates Status Health Status Informant Anxiety(Confirmed) Active Benign essential tremor - head stef, Active hand; different than seizures(Confirmed) Learning difficulties(Confirmed) Active Myopia(Confirmed) Active Falls frequently(Confirmed) Active On EEG.(Confirmed) Active Seizure disorder on EEG 03/17/2021, Active daily, focal and generalized; Dr. Mcfarland; patient declines f/u with Dr. Pozo, side effect to tegretol(Confirmed) Vitamin D deficiency(Confirmed) 01/30/14 Active Social History Social History Type Response Tobacco Use: 4 or less cigarettes(le ss than 1/4 pack)/day in last 30 days. Sex Female
--- OUTSIDE RECORDS SUMMARY | 2022-08-27 22:25 | XMS_ITS | Continuity of Care Document ---
:1994 Author Organization [facility] Address [address] [place] [address]- Care Team Providers Name Role Phone Jose L MIDDLETON, Anel Primary Care Physician [place] [facility] [place] 07/06/20 [facility] [address] [place] [address] [facility] Allergies, Adverse Reactions, Alerts No Known Medication [...] term) 94 Given 1Admin Note: vis given 05/29/201220988Duzcf Note: VIS Lsoil1Qepwj Note: vis given Admin Note: VIS Lijtf6Lscmp Note: VIS Admin Note: VIS 02/08/2008 7Admin Note: hx varicella '948Admin Note: as default missing dates doc. Medications naproxen 500 mg oral tablet 1 tablet = 500 mg, By Mouth, 2 times a day, PRN Pain , Mild, # 60 tablet, 1 Refills, Maintenance, 10/10/19 20:11:33 EST, Tablet Start Date: 10/10/19 Status: OrderedPNV oral tablet 1 tablet, By Mouth, Daily, # 30 tablet, 6 Refills, Maintenance, 07/23/19 15:33:35 EDT, 1 tablet By Mouth Daily,x30 days Start Date: 07/23/19 Stop Date: 02/18/20 Status: OrderedXulane 150 mcg-35 mcg/24 hr transdermal film, extended release 1 patch, Topically, Every week, # 3 each, 11 Refills, Maintenance, 04/23/20 16:52:00 EDT, [facility] #[id number], 1 patch Topically Every week, 154, cm, 04/23/20 16:13:00 EDT, Height, 77, kg, 03/03/19 4:10:00 EDT, Dry Weight Start Date: 04/23/20 Status: Ordered Problem List Condition Effective Dates Status Health Status Informant Learning difficulties(Confirmed) Active Vitamin D deficiency(Confirmed) 01/30/14 Active Social History Social History Type Response Tobacco Use: 4 or less cigarettes(le ss than 1/4 pack)/day in last 30 days. Sex Female
--- OUTSIDE RECORDS SUMMARY | 2022-08-27 22:25 | XMS_ITS | Continuity of Care Document ---
:1994 Author Organization [facility] Address [address] [place] [address]- Care Team Providers Name Role Phone Anel Domingo MD Primary Care Physician Encounter [facility] [place] Date(s): 12/03/20 - 01/02/21 [facility] [address] [place] [id number] Attending Physician: Maco Torres [...] term) 94 Given 1Admin Note: vis given 05/29/201230616Eyaae Note: VIS Jdnpi2Piizt Note: vis given Admin Note: VIS Wqemz2Aslrz Note: VIS Admin Note: VIS 02/08/2008 7Admin Note: hx varicella '8Admin Note: as default missing dates doc. Medications Chloraseptic 6 mg-10 mg mucous membrane lozenge 1 lozenge, By Mouth, Every 2 hours, PRN for sore throat, # 18 each, 1 Refills, Maintenance, 07/15/2012:28:00 EDT, Lozenge, [facility] #[id number], 1 lozenge By Mouth Every 2 hours,PRN:for [...]
--- OUTSIDE RECORDS SUMMARY | 2022-08-27 22:25 | XMS_ITS | Continuity of Care Document ---
:1994 Author Organization [facility] Address [address] [place] [address]- Care Team Providers Name Role Phone Jose L MIDDLETON, Anel Primary Care Physician [place] [facility] [place] Date(s): 09/03/20 - 10/03/20 [facility] [address] [place] [id number] Allergies, Adverse Reactions, Alerts No Known [...] term) 94 Given 1Admin Note: vis given 05/29/201236870Aerkk Note: VIS Yhpjs0Dnikf Note: vis given Admin Note: VIS Yezqo1Snjez Note: VIS Admin Note: VIS 02/08/2008 7Admin Note: hx varicella '948Admin Note: as default missing dates doc. Medications Chloraseptic 6 mg-10 mg mucous membrane lozenge 1 lozenge, By Mouth, Every 2 hours, PRN for sore throat, # 18 each, 1 Refills, Maintenance, 07/15/2012:28:00 EDT, Lozenge, [facility] #[id number], 1 lozenge By Mouth Every 2 hours,PRN:for [...]
--- OUTSIDE RECORDS SUMMARY | 2022-08-27 22:25 | XMS_ITS | Continuity of Care Document ---
:1994 Author Organization [facility] Address [address] [place] [address]- Care Team Providers Name Role Phone Jose L MIDDLETON, Anel Primary Care Physician Encounter [facility] Date(s): 12/05/20 - 01/04/[address] [address] Attending Physician: Maco Torres Admitting Physician: Maco Torres Referring Physician: AdmtrMaco Allergies, Adverse Reactions, Alerts No Known Medication [...] term) 94 Given 1Admin Note: vis given 05/29/201277220Tigis Note: VIS Wgkko0Fxyik Note: vis given Admin Note: VIS Vchwe5Aclib Note: VIS Admin Note: VIS 02/08/2008 7Admin Note: hx varicella '948Admin Note: as default missing dates doc. Medications Chloraseptic 6 mg-10 mg mucous membrane lozenge 1 lozenge, By Mouth, Every 2 hours, PRN for sore throat, # 18 each, 1 Refills, Maintenance, 07/15/2012:28:00 EDT, Lozenge, [facility] #[id number], 1 lozenge By Mouth Every 2 hours,PRN:for [...]
--- OUTSIDE RECORDS SUMMARY | 2022-08-27 22:25 | XMS_ITS | Continuity of Care Document ---
:1994 Author Organization [facility] Address [address] [place] [address]- Care Team Providers Name Role Phone Jose L MIDDLETON, Anel Primary Care Physician Encounter [facility] Date(s): 06/05/20 - 06/05/[address] [address] [facility] Discharge Disposition: A-D/C Home Attending Physician: Shaunna Mojica MD Admitting Physician: Shaunna Mojica MD Referring Physician: Not on Staff, Referring MD Allergies, Adverse Reactions, Alerts No Known Medication [...] term) 94 Given 1Admin Note: vis given 05/29/201249713Mwrac Note: VIS [id number] Note: vis given Admin Note: VIS [id number] Note: VIS Admin Note: VIS 02/08/2008 7Admin [...] each, 11 Refills, Maintenance, 04/23/20 16:52:00 EDT, [facility] #[id number], 1 patch Topically Every week, 154, cm, 04/23/20 16:13:00 EDT, Height, 77, kg, 03/03/19 4:10:00 EDT, Dry Weight Start Date: 04/23/20 Status: Ordered Problem List Condition Effective Dates Status Health Status Informant Learning difficulties(Confirmed) Active Vitamin D deficiency(Confirmed) 01/30/14 Active Vital Signs Most recent to oldest 1 2 3 4 [Reference Range]: Height 155 cm (06/05/20 5:33 PM) Oxygen Saturation 100 % 100 % 100 % 99 % [94-100 %] (06/05/20 8:50 PM) (06/05/20 7:51 PM) (06/05/20 5:34 PM) (06/05/20 5:34 PM) Pulse Rate [55-90 bpm] 74 bpm 72 bpm 76 bpm 79 bp m (06/05/20 8:50 PM) (06/05/20 7:51 PM) (06/05/20 5:34 PM) (06/05/20 5:34 PM) Blood Pressure 116/70 mm Hg 108/72 mm Hg 112/64 mm Hg 108/56 mm Hg [90-138/55-84 mm Hg] (06/05/20 8:50 PM) (06/05/20 7:51 PM) (06/05/20 5:34 PM) (06/05/20 5:34 PM) Respiratory Rate 18 br/min 16 br/min 16 br/min 18 br/min [16-30 br/min] (06/05/20 8:50 PM) (06/05/20 7:51 PM) (06/05/20 5:34 PM) ( 06/05/20 5:34 PM) Temperature 98.6 DegF 98.4 DegF 98.8 DegF 98.8 DegF [96.8-100.4 DegF] (06/05/20 8:50 PM) (06/05/20 7:51 PM) (06/05/20 5:34 PM ) (06/05/20 5:34 PM) Mode of Delivery Room air Room air Room air Room air (Oxygen) (06/05/20 8:50 PM) (06/05/20 7:51 PM) (06/05/20 5:34 PM) (06/05/20 5:34 PM) Blood pressure sites Arm, right Arm, right Arm, right Arm, le ft (06/05/20 8:50 PM) (06/05/20 7:51 PM) (06/05/20 5:34 PM) (06/05/20 5:34 PM) Temperature Route Oral Oral Oral Oral (06/05/20 8:50 PM) (06/05/20 7:51 PM) (06/05/20 5:34 PM) (06/05/20 5:34 PM) Social History Social History Type Response Tobacco Use: 4 or less cigarettes(le ss than 1/4 pack)/day in last 30 days. Sex Female
--- OUTSIDE RECORDS SUMMARY | 2022-08-27 22:25 | XMS_ITS | Continuity of Care Document ---
:1994 Author Organization [facility] Address [address] [place] [address]- Care Team Providers Name Role Phone Jose L MIDDLETON, Anel Primary Care Physician [place] [facility] [place](s): 10/02/21 - 01/03/22 [facility] [address] [place] [id number] Attending Physician: Not on Staff, Attending MD Referring Physician: Anel Domingo MD Allergies, Adverse Reactions, Alerts Substance Reaction Severity [...] term) 94 Given 1Admin Note: vis given 05/29/201200107Cvmpg Note: VIS Tcudw7Ufgex Note: vis given Admin Note: VIS Zqxjr9Lnpbt Note: VIS Admin Note: VIS 02/08/2008 7Admin Note: hx varicella '948Admin Note: as default missing dates doc. Medications hydrOXYzine pamoate 25 mg oral capsule 1 capsule = 25 mg, By Mouth, 4 times a day, PRN for anxiety, # 40 capsule, 0 Refills, Maintenance, 09/25/21 10:24:00 EDT, Capsule, [facility] #[id number], Partial fill upon patient request if the prescription is for a schedule II opioid drug., 15... Start Date: 09/25/21 Status: OrderedlevETIRAcetam 500 mg oral tablet 1 tablet = 500 mg, By Mouth, 2 times a day, # 60 tablet, 5 Refills, Maintenance, 12/04/21 10:54:00 EST, Tablet, [facility] #[id number], Partial fill upon patient request if the prescription is fora schedule II opioid drug., 155, cm, 10/16/21 9:3... Start Date: 12/04/21 Status: OrderedLexapro 5 mg oral tablet 1 tablet = 5 mg, By Mouth, Daily, # 30 tablet, 0 Refills, Maintenance, 10/16/21 10:17:00 EST, Tablet, [facility] #[id number], Partial fill upon patient request if the prescription is for a schedule II opioid drug., 155, cm, 10/16/21 9:35:00 EST,... Start Date: 10/16/21 Status: Orderedmelatonin 3 mg oral tablet, extended release 1 tablet = 3 mg, By Mouth, Daily at bedtime, PRN as needed for insomnia, # 15 tablet, 0 Refills, Maintenance, 09/25/21 10:24:00 EDT, ER Tablet, [facility] #[id number], Partial fill upon patient request if the prescription is for a schedule II opi... Start Date: 09/25/21 Status: Orderednaproxen 500 mg oral tablet 1 tablet, By Mouth, 2 times a day, PRN NEEDED FOR MILD PAIN, # 60 tablet, 0 Refills, Maintenance,09/25/21 10:27:00 EDT, [facility] #[id number], 155, cm, 09/25/21 9:35:00 EDT, Height Start [...]
--- OUTSIDE RECORDS SUMMARY | 2022-08-27 22:25 | XMS_ITS | Continuity of Care Document ---
:1994 Author Organization [facility] Address [address] [place] [address]- Care Team Providers Name Role Phone Jose L MIDDLETON, Anel Primary Care Physician Encounter [facility] [place] Date(s): 07/26/22 - 08/25/22 [facility] [address] [place] [id number] Allergies, Adverse Reactions, Alerts Substance Reaction Severity [...] term) 94 Given 1Admin Note: vis given 05/29/201245439Pzpzy Note: VIS Eihrc2Nwcmp Note: vis given Admin Note: VIS Uwjcq9Tdprx Note: VIS Admin Note: VIS 02/08/2008 7Admin Note: hx varicella '948Admin Note: as default missing dates doc. Medications Apri 0.15 mg-0.03 mg oral tablet 1 tablet, By Mouth, Daily, # 84 tablet, 0 Refills, Maintenance, 07/21/22 22:20:00 EDT, Tablet, [facility] #[id number], Partial fill upon patient request if the prescription is for a schedule II opioid drug., 1 tablet By Mouth Daily, 155, cm, 04/28... Start Date: 07/21/22 Status: Orderedfamotidine 20 mg oral tablet 20 mg, 1, tablet, By Mouth, 2 times a day, PRN, # 60 tablet, Refills 0, Tot. Refills 0, Maintenance,Dyspepsia, 07/09/22 13:05:00 EDT, Route to Pharmacy Electronically, [facility] #[id number], Partial fill upon patient request if the prescription... Start Date: 07/09/22 Status: OrderedlevETIRAcetam 500 mg oral tablet 1 tablet = 500 mg, By Mouth, 2 times a day, # 60 tablet, 5 Refills, Maintenance, 04/23/22 9:29:00 EDT, Tablet, [facility] #[id number], Partial fill upon patient request if the prescription is for a schedule II opioid drug., 155, cm, 04/23/22 9:04... Start Date: 04/23/22 Status: Ordered Problem List Condition Confirmation Course Effective Dates Status Health Stat us Informant Anxiety Confirmed Active Benign essential Confirmed Active tremor - head stef, hand; different than seizures Learning Confirmed Active difficulties Myopia Confirmed Active Falls frequently Confirmed Active On EEG. Confirmed Active Seizure disorder on Confirmed Active EEG 03/17/2021, daily, focal and generalized; Dr. Mcfarland; patient declines f/u with Dr. Pozo, side effect to tegretol Vitamin D Confirmed 01/30/14 Active deficiency Social History Social History Type Response Tobacco Use: 4 or less cigarettes(le ss than 1/4 pack)/day in last 30 days. Sex Female Patient Care team information PersonnelName: Jose L MIDDLETON, Anel Address: Address: [address] [place] [address]-
--- OUTSIDE RECORDS SUMMARY | 2022-08-27 22:25 | XMS_ITS | Continuity of Care Document ---
:1994 Author Organization [facility] Address [address] [place] [address]- Care Team Providers Name Role Phone Jose L MIDDLETON, Anel Primary Care Physician Encounter [facility] Date(s): 06/10/20 - 07/10/[address] [address]- [facility] Allergies, Adverse Reactions, Alerts No [...] term) 94 Given 1Admin Note: vis given 05/29/201204915Ohsds Note: VIS Jxtym8Vujdq Note: vis given Admin Note: VIS Odsxk4Wburo Note: VIS Admin Note: VIS 02/08/2008 7Admin [...] each, 11 Refills, Maintenance, 04/23/20 16:52:00 EDT, [facility] #[id number], 1 patch Topically Every week, 154, cm, [...]
--- OUTSIDE RECORDS SUMMARY | 2022-08-27 22:25 | XMS_ITS | Continuity of Care Document ---
:1994 Author Organization [facility] Address [address] [place] [address]- Care Team Providers Name Role Phone Jose L MIDDLETON, Anel Primary Care Physician Encounter [facility] [place] Date(s): 04/23/22 - 05/29/22 [facility] [address] [place] [id number] Attending Physician: Not on Staff, Attending MD Allergies, Adverse Reactions, Alerts Substance Reaction [...] term) 94 Given 1Admin Note: vis given 05/29/201213553Kccmn Note: VIS Lkmib0Kgdtw Note: vis given Admin Note: VIS Dlifu7Jrksv Note: VIS Admin Note: VIS 02/08/2008 7Admin Note: hx varicella '8Admin Note: as default missing dates doc. Medications famotidine 20 mg oral tablet 20 mg, 1, tablet, By Mouth, 2 times a day, PRN, # 60 tablet, Refills 0, Tot. Refills 0, Maintenance,Dyspepsia, 05/12/22 15:04:00 EDT, Route to Pharmacy Electronically, [facility] #[id number], Partial fill upon patient request if the prescription... Start Date: 05/12/22 Status: OrderedlevETIRAcetam 500 mg oral tablet 1 tablet = 500 mg, By Mouth, 2 times a day, # 60 tablet, 5 Refills, Maintenance, 04/23/22 9:29:00 EDT, Tablet, [facility] #[id number], Partial fill upon patient request if the prescription is for a schedule II opioid drug., 155, cm, 04/23/22 9:04... Start Date: 04/23/22 Status: Ordered Problem List Condition Effective Dates [...]
--- OUTSIDE RECORDS SUMMARY | 2022-08-27 22:25 | XMS_ITS | Continuity of Care Document ---
:1994 Author Organization [facility] Address [address] [place] [address]- Care Team Providers Name Role Phone Jose L Lema MD Primary Care Physician Encounter [facility] [place] Date(s): 02/01/20 - 05/31/[address] [address]- [facility] Attending Physician: Not on Staff, Attending MD Referring Physician: Jose L Lema MD Allergies, Adverse Reactions, Alerts No Known [...] term) 94 Given 1Admin Note: vis given 05/29/201258812Vkxkq Note: VIS Wjgjg1Oxdvx Note: vis given Admin Note: VIS Pibas5Cwhjq Note: VIS Admin Note: VIS 02/08/2008 7Admin [...] each, 11 Refills, Maintenance, 04/23/20 16:52:00 EDT, [facility] #[id number], 1 patch Topically Every week, 154, cm, [...]
--- OUTSIDE RECORDS SUMMARY | 2022-08-27 22:26 | XMS_ITS | Continuity of Care Document ---
:1994 Author Organization [facility] Address [address] [place] [address]- Care Team Providers Name Role Phone Jose L Lema MD Primary Care Physician Encounter [facility] Date(s): 03/27/20 - 04/03/20 [facility] [address] [place] [id number] [facility] Attending Physician: Lulu MIDDLETON, Bry Obrien Allergies, Adverse Reactions, Alerts No Known Medication [...] term) 94 Given 1Admin Note: vis given 05/29/201258932Kzzjx Note: VIS Guiej9Qavfm Note: vis given Admin Note: VIS Gjktn4Vwwrw Note: VIS Admin Note: VIS 02/08/2008 7Admin [...] Start Date: 07/23/19 Stop Date: 02/18/20 Status: OrderedSprintec 0.25 mg-35 mcg oral tablet 1 tablet, By Mouth, Daily, # 84 tablet, 4 Refills, Maintenance, 02/01/20 13:19:00 EST, Tablet, [facility] #[id number], 1 tablet By Mouth Daily, 154, cm, 02/01/20 12:51:00 EST, Height, 77, kg, 03/03/19 4:10:00 EDT, Dry Weight Start Date: 02/01/20 Status: Ordered Problem List Condition Effective Dates Status Health Status Informant Learning difficulties(Confirmed) Active Social History Social History Type Response Tobacco Use: 4 or less cigarettes(le ss than 4 pack)/day in last 30 days. Sex Female
--- OUTSIDE RECORDS SUMMARY | 2022-08-27 22:26 | XMS_ITS | Continuity of Care Document ---
:1994 Author Organization [facility] Address [address] [place] [address]- Care Team Providers Name Role Phone Anel Domingo MD Primary Care Physician [place] [facility] [place] - 07/21/[address] [address] Discharge Disposition: A-D/C Home Attending Physician: Alia Paez MD Admitting Physician: Alia Paez MD Referring Physician: Alia Paez MD Allergies, Adverse Reactions, Alerts Substance Reaction [...] term) 94 Given 1Admin Note: vis given 05/29/201290728Mjkcu Note: VIS [id number] Note: vis given Admin Note: VIS Ttbhe8Xerqc Note: VIS Admin Note: VIS 02/08/2008 7Admin Note: hx varicella '948Admin Note: as default missing dates doc. Medications Apri 0.15 mg-0.03 mg oral tablet 1 tablet, By Mouth, Daily, # 84 tablet, 0 Refills, Maintenance, 07/21/22 22:20:00 EDT, Tablet, [facility] #[id number], Partial fill upon patient request if the prescription is for a schedule II opioid drug., 1 tablet By Mouth Daily, 155, cm, 04/28... Start Date: 07/21/22 Status: Orderedfamotidine 20 mg oral tablet 20 mg, 1, tablet, By Mouth, 2 times a day, PRN, # 60 tablet, Refills 0, Tot. Refills 0, Maintenance,Dyspepsia, 07/09/22 13:05:00 EDT, Route to Pharmacy Electronically, [facility] #[id number], Partial fill upon patient request if the prescription... Start Date: 07/09/22 Status: OrderedlevETIRAcetam 500 mg oral tablet 1 tablet = 500 mg, By Mouth, 2 times a day, # 60 tablet, 5 Refills, Maintenance, 04/23/22 9:29:00 EDT, Tablet, [facility] #[id number], Partial fill upon patient request if the [...] to tegretol(Confirmed) Vitamin D deficiency(Confirmed) 01/30/14 Active Vital Signs Most recent to oldest [Reference Range]: 1 Weight 68.9 kg (07/21/22 8:51 PM) Oxygen Saturation [94-100 %] 100 % (07/21/22 8:51 PM) Pulse Rate [55-90 bpm] 74 bpm (07/21/22 8:51 PM) Blood Pressure [90-138/55-84 mm Hg] 106/54 mm Hg (07/21/22 8:51 PM) Respiratory Rate [16-30 br/min] 18 br/min (07/21/22 8:51 PM) Temperature [96.8-100.4 DegF] 98.1 DegF (07/21/22 8:51 PM) Mode of Delivery (Oxygen) Room air (07/21/22 8:51 PM) Blood pressure sites Arm, right (07/21/22 8:51 PM) Temperature Route Oral (07/21/22 8:51 PM) Dry Weight 68.9 kg (07/21/22 8:51 PM) Weight Obtained Via Standing scale (07/21/22 8:51 PM) Dry Weight Obtained Via Standing scale (07/21/22 8:51 PM) Social History Social History Type Response Tobacco Use: 4 or less cigarettes(le ss than 1/4 pack)/day in last 30 days. Sex Female
--- OUTSIDE RECORDS SUMMARY | 2022-08-27 22:26 | XMS_ITS | Continuity of Care Document ---
:1994 Author Organization [facility] Address [address] [place] [address]- Care Team Providers Name Role Phone Jose L MIDDLETON, Anel Primary Care Physician Encounter [facility] Date(s): 07/22/22 - 08/26/[address] [address] Attending Physician: Not on Staff, Attending MD [...] term) 94 Given 1Admin Note: vis given 05/29/201264960Qcpcs Note: VIS Fqqxf7Fpuus Note: vis given Admin Note: VIS Wepqf9Nffdm Note: VIS Admin Note: VIS 02/08/2008 7Admin Note: hx varicella '948Admin Note: as default missing dates doc. Medications Apri 0.15 mg-0.03 mg oral tablet 1 tablet, By Mouth, Daily, # 84 tablet, 0 Refills, Maintenance, 07/21/22 22:20:00 EDT, Tablet, [facility] #[id number], Partial fill upon patient request if the prescription is for a schedule II opioid drug., 1 tablet By Mouth Daily, 155, cm, 04/28... Start Date: 07/21/22 Status: Orderedfamotidine 20 mg oral tablet 20 mg, 1, tablet, By Mouth, 2 times a day, PRN, # 60 tablet, Refills 0, Tot. Refills 0, Maintenance,Dyspepsia, 07/09/22 13:05:00 EDT, Route to Pharmacy Electronically, [facility] #[id number], Partial fill upon patient request if the prescription... Start Date: 07/09/22 Status: OrderedlevETIRAcetam 500 mg oral tablet 1 tablet = 500 mg, By Mouth, 2 times a day, # 60 tablet, 5 Refills, Maintenance, 04/23/22 9:29:00 EDT, Tablet, [facility] #[id number], Partial fill upon patient request if the [...] PersonnelName: Jose L MIDDLETON, Anel Address: Address: [address] [place] [address]
--- OUTSIDE RECORDS SUMMARY | 2022-08-27 22:26 | XMS_ITS | Continuity of Care Document ---
:1994 Author Organization [facility] Address [address] [place] [address]- Care Team Providers Name Role Phone Anel Domingo MD Primary Care Physician [place] [facility] [place] 04/23/20 - 06/08/[address] [address]- [facility] Attending Physician: Not on Staff, Attending MD [...] term) 94 Given 1Admin Note: vis given 05/29/201216696Cphkt Note: VIS [id number] Note: vis given Admin Note: VIS [id number] Note: VIS Admin Note: VIS 02/08/2008 7Admin [...] each, 11 Refills, Maintenance, 04/23/20 16:52:00 EDT, [facility] #[id number], 1 patch Topically Every week, 154, cm, [...]
--- OUTSIDE RECORDS SUMMARY | 2022-08-27 22:26 | XMS_ITS | Continuity of Care Document ---
:1994 Author Organization [facility] Address [address] [facility], 3rd Floor, [address] [place] [address]- Care Team Providers Name Role Phone Anel Domingo MD Primary Care Physician [place] [facility] [place] 08/[place]20 - 09/20/20 [facility] [address] [facility], [address]rd Floor, [address] [place] [address] [facility] Allergies, Adverse Reactions, Alerts No [...] term) 94 Given 1Admin Note: vis given 05/29/201249252Wzcng Note: VIS Skbqz7Xegxb Note: vis given Admin Note: VIS Votez5Eipmi Note: VIS Admin Note: VIS 02/08/2008 7Admin Note: hx varicella '948Admin Note: as default missing dates doc. Medications Chloraseptic 6 mg-10 mg mucous membrane lozenge 1 lozenge, By Mouth, Every 2 hours, PRN for sore throat, # 18 each, 1 Refills, Maintenance, 07/15/2012:28:00 EDT, Lozenge, [facility] #[id number], 1 lozenge By Mouth Every 2 hours,PRN:for [...]
--- OUTSIDE RECORDS SUMMARY | 2022-08-27 22:26 | XMS_ITS | Continuity of Care Document ---
:1994 Author Organization [facility] Address [address] [place] [address]- Care Team Providers Name Role Phone Jose L MIDDLETON, Anel Primary Care Physician Encounter [facility] Date(s): 12/11/21 - 03/21/22 [facility] [address] [place] [address] Attending Physician: Not on Staff, Attending MD [...] term) 94 Given 1Admin Note: vis given 05/29/201267190Gfenv Note: VIS Bckkd8Lbmlu Note: vis given Admin Note: VIS [id number] Note: VIS Admin Note: VIS 02/08/2008 7Admin Note: hx varicella '948Admin Note: as default missing dates doc. Medications Apri 0.15 mg-0.03 mg oral tablet 1 tablet, By Mouth, Daily, # 84 tablet, 3 Refills, Maintenance, 01/11/22 9:44:00 EST, Tablet, [facility] #[id number], Partial fill upon patient request if the prescription is for a schedule II opioid drug., 1 tablet By Mouth Daily, 155, cm, 01/11... Start Date: 01/11/22 Status: OrderedhydrOXYzine pamoate 25 mg oral capsule 1 capsule = 25 mg, By Mouth, 4 times a day, PRN for anxiety, # 40 capsule, 0 Refills, Maintenance, 09/25/21 10:24:00 EDT, Capsule, [facility] #[id number], Partial fill upon patient request if the prescription is for a schedule II opioid drug., 15... Start Date: 09/25/21 Status: OrderedlevETIRAcetam 500 mg oral tablet 1 tablet = 500 mg, By Mouth, 2 times a day, # 60 tablet, 5 Refills, Maintenance, 12/04/21 10:54:00 EST, Tablet, [facility] #[id number], Partial fill upon patient request if the prescription is fora schedule II opioid drug., 155, cm, 10/16/21 9:3... Start Date: 12/04/21 Status: OrderedLexapro 5 mg oral tablet 1 tablet = 5 mg, By Mouth, Daily, # 30 tablet, 0 Refills, Maintenance, 10/16/21 10:17:00 EST, Tablet, [facility] #[id number], Partial fill upon patient request if the prescription is for a schedule II opioid drug., 155, cm, 10/16/21 9:35:00 EST,... Start Date: 10/16/21 Status: Orderedmelatonin 3 mg oral tablet, extended release 1 tablet = 3 mg, By Mouth, Daily at bedtime, PRN as needed for insomnia, # 15 tablet, 0 Refills, Maintenance, 09/25/21 10:24:00 EDT, ER Tablet, [facility] #[id number], Partial fill upon patient request if the prescription is for a schedule II opi... Start Date: 09/25/21 Status: Orderednaproxen 500 mg oral tablet 1 tablet, By Mouth, 2 times a day, PRN NEEDED FOR MILD PAIN, # 60 tablet, 0 Refills, Maintenance,09/25/21 10:27:00 EDT, [facility] #[id number], 155, cm, 09/25/21 9:35:00 EDT, Height Start [...]
--- OUTSIDE RECORDS SUMMARY | 2022-08-27 22:26 | XMS_ITS | Continuity of Care Document ---
:1994 Author Organization [facility] Address [address] [place] [address]- Care Team Providers Name Role Phone Jose L MIDDLETON, Anel Primary Care Physician Encounter [facility] Date(s): 03/15/22 - 04/14/[address] [address] Attending Physician: Maco Torres Admitting Physician: AdmMaco street Referring Physician: AdmtrMaco Allergies, Adverse Reactions, Alerts [...] term) 94 Given 1Admin Note: vis given 05/29/201277240Wwyrb Note: VIS [id number] Note: vis given Admin Note: VIS [id number] Note: VIS Admin Note: VIS 02/08/2008 7Admin Note: hx varicella '948Admin Note: as default missing dates doc. Medications Apri 0.15 mg-0.03 mg oral tablet 1 tablet, By Mouth, Daily, # 84 tablet, 3 Refills, Maintenance, 01/11/22 9:44:00 EST, Tablet, [facility] #[id number], Partial fill upon patient request if the prescription is for a schedule II opioid drug., 1 tablet By Mouth Daily, 155, cm, 01/11... Start Date: 01/11/22 Status: OrderedhydrOXYzine pamoate 25 mg oral capsule 1 capsule = 25 mg, By Mouth, 4 times a day, PRN for anxiety, # 40 capsule, 0 Refills, Maintenance, 09/25/21 10:24:00 EDT, Capsule, [facility] #[id number], Partial fill upon patient request if the prescription is for a schedule II opioid drug., 15... Start Date: 09/25/21 Status: OrderedlevETIRAcetam 500 mg oral tablet 1 tablet = 500 mg, By Mouth, 2 times a day, # 60 tablet, 5 Refills, Maintenance, 12/04/21 10:54:00 EST, Tablet, [facility] #[id number], Partial fill upon patient request if the prescription is fora schedule II opioid drug., 155, cm, 10/16/21 9:3... Start Date: 12/04/21 Status: OrderedLexapro 5 mg oral tablet 1 tablet = 5 mg, By Mouth, Daily, # 30 tablet, 0 Refills, Maintenance, 10/16/21 10:17:00 EST, Tablet, [facility] #[id number], Partial fill upon patient request if the prescription is for a schedule II opioid drug., 155, cm, 10/16/21 9:35:00 EST,... Start Date: 10/16/21 Status: Orderedmelatonin 3 mg oral tablet, extended release 1 tablet = 3 mg, By Mouth, Daily at bedtime, PRN as needed for insomnia, # 15 tablet, 0 Refills, Maintenance, 09/25/21 10:24:00 EDT, ER Tablet, [facility] #[id number], Partial fill upon patient request if the prescription is for a schedule II opi... Start Date: 09/25/21 Status: Orderednaproxen 500 mg oral tablet 1 tablet, By Mouth, 2 times a day, PRN NEEDED FOR MILD PAIN, # 60 tablet, 0 Refills, Maintenance,09/25/21 10:27:00 EDT, [facility] #[id number], 155, cm, 09/25/21 9:35:00 EDT, Height Start [...]
--- OUTSIDE RECORDS SUMMARY | 2022-08-27 22:26 | XMS_ITS | Continuity of Care Document ---
:1994 Author Organization [facility] Address [address] [place] [address]- Care Team Providers Name Role Phone Jose L MIDDLETON, Anel Primary Care Physician Encounter [facility] Date(s): 10/27/21 - 11/26/21 [facility] [address] [place] [id number] Allergies, Adverse Reactions, Alerts Substance Reaction [...] term) 94 Given 1Admin Note: vis given 05/29/201207699Ywqbo Note: VIS Vkfrj8Qfssp Note: vis given Admin Note: VIS Gabqz2Ebttd Note: VIS Admin Note: VIS 02/08/2008 7Admin Note: hx varicella '948Admin Note: as default missing dates doc. Medications hydrOXYzine pamoate 25 mg oral capsule 1 capsule = 25 mg, By Mouth, 4 times a day, PRN for anxiety, # 40 capsule, 0 Refills, Maintenance, 09/25/21 10:24:00 EDT, Capsule, [facility] #[id number], Partial fill upon patient request if the prescription is for a schedule II opioid drug., 15... Start Date: 09/25/21 Status: OrderedLexapro 5 mg oral tablet 1 tablet = 5 mg, By Mouth, Daily, # 30 tablet, 0 Refills, Maintenance, 10/16/21 10:17:00 EST, Tablet, [facility] #[id number], Partial fill upon patient request if the prescription is for a schedule II opioid drug., 155, cm, 10/16/21 9:35:00 EST,... Start Date: 10/16/21 Status: Orderedmelatonin 3 mg oral tablet, extended release 1 tablet = 3 mg, By Mouth, Daily at bedtime, PRN as needed for insomnia, # 15 tablet, 0 Refills, Maintenance, 09/25/21 10:24:00 EDT, [facility][id number], Partial fill upon patient request if the prescription is for a schedule II opi... Start Date: 09/25/21 Status: Orderednaproxen 500 mg oral tablet 1 tablet, By Mouth, 2 times a day, PRN NEEDED FOR MILD PAIN, # 60 tablet, 0 Refills, Maintenance,09/25/21 10:27:00 EDT, [facility][id number], 155, cm, 09/25/21 9:35:00 EDT, Height Start [...]
--- OUTSIDE RECORDS SUMMARY | 2022-08-27 22:26 | XMS_ITS | Continuity of Care Document ---
:1994 Author Organization [facility] Address [address] [place] [address]- Care Team Providers Name Role Phone Jose L MIDDLETON, Anel Primary Care Physician Encounter [facility] Date(s): 07/08/22 - 08/07/22 [facility] [address] [place] [id number] Allergies, Adverse Reactions, Alerts Substance [...] term) 94 Given 1Admin Note: vis given 05/29/201292513Zrigg Note: VIS Oaapd4Znyot Note: vis given Admin Note: VIS Dnanf4Liigg Note: VIS Admin Note: VIS 02/08/2008 7Admin Note: hx varicella '948Admin Note: as default missing dates doc. Medications Apri 0.15 mg-0.03 mg oral tablet 1 tablet, By Mouth, Daily, # 84 tablet, 0 Refills, Maintenance, 07/21/22 22:20:00 EDT, Tablet, [facility] #[id number], Partial fill upon patient request if the prescription is for a schedule II opioid drug., 1 tablet By Mouth Daily, 155, cm, 04/28... Start Date: 07/21/22 Status: Orderedfamotidine 20 mg oral tablet 20 mg, 1, tablet, By Mouth, 2 times a day, PRN, # 60 tablet, Refills 0, Tot. Refills 0, Maintenance,Dyspepsia, 07/09/22 13:05:00 EDT, Route to Pharmacy Electronically, [facility] #[id number], Partial fill upon patient request if the prescription... Start Date: 07/09/22 Status: OrderedlevETIRAcetam 500 mg oral tablet 1 tablet = 500 mg, By Mouth, 2 times a day, # 60 tablet, 5 Refills, Maintenance, 04/23/22 9:29:00 EDT, Tablet, [facility] #[id number], Partial fill upon patient request if the [...] pack)/day in last 30 days. Sex Female Care Team PersonnelName: Jose L MIDDLETON, Anel Address: [address] [place] [address]
--- OUTSIDE RECORDS SUMMARY | 2022-08-27 22:26 | XMS_ITS | Continuity of Care Document ---
:1994 Author Organization [facility] Address [address] [place] [address]- Care Team Providers Name Role Phone Anel Domingo MD Primary Care Physician Encounter [facility] [place] Date(s): 07/10/20 - 08/09/20 [facility] Adult Medicine [address] [place] [address] [facility] Allergies, Adverse Reactions, Alerts No Known Medication [...] term) 94 Given 1Admin Note: vis given 05/29/201266030Plnbm Note: VIS Yaigo9Piqtn Note: vis given Admin Note: VIS Mrufa9Mabyw Note: VIS Admin Note: VIS 02/08/2008 7Admin Note: hx varicella '948Admin Note: as default missing dates doc. Medications Chloraseptic 6 mg-10 mg mucous membrane lozenge 1 lozenge, By Mouth, Every 2 hours, PRN for sore throat, # 18 each, 1 Refills, Maintenance, 07/15/2012:28:00 EDT, Lozenge, [facility] #[id number], 1 lozenge By Mouth Every 2 hours,PRN:for [...]
--- OUTSIDE RECORDS SUMMARY | 2022-08-27 22:26 | XMS_ITS | Continuity of Care Document ---
:1994 Author Organization [facility] Address [address] [place] [address]- Care Team Providers Name Role Phone Jose L MIDDLETON, Anel Primary Care Physician Encounter [facility] [place] Date(s): 10/20/21 - 11/25/[address] [address] Attending Physician: Arcelia Ortez MD Admitting Physician: Arcelia Ortez MD Referring Physician: Arcelia Ortez MD Allergies, Adverse Reactions, Alerts Substance Reaction [...] term) 94 Given 1Admin Note: vis given 05/29/201269164Enhpw Note: VIS Sqoov6Ltfdb Note: vis given Admin Note: VIS Gxcvh8Patzh Note: VIS Admin Note: VIS 02/08/2008 7Admin Note: hx varicella '948Admin Note: as default missing dates doc. Medications hydrOXYzine pamoate 25 mg oral capsule 1 capsule = 25 mg, By Mouth, 4 times a day, PRN for anxiety, # 40 capsule, 0 Refills, Maintenance, 09/25/21 10:24:00 EDT, Capsule, [facility] #[id number], Partial fill upon patient request if the prescription is for a schedule II opioid drug., 15... Start Date: 09/25/21 Status: OrderedLexapro 5 mg oral tablet 1 tablet = 5 mg, By Mouth, Daily, # 30 tablet, 0 Refills, Maintenance, 10/16/21 10:17:00 EST, Tablet, [facility] #[id number], Partial fill upon patient request if the prescription is for a schedule II opioid drug., 155, cm, 10/16/21 9:35:00 EST,... Start Date: 10/16/21 Status: Orderedmelatonin 3 mg oral tablet, extended release 1 tablet = 3 mg, By Mouth, Daily at bedtime, PRN as needed for insomnia, # 15 tablet, 0 Refills, Maintenance, 09/25/21 10:24:00 EDT, ER Tablet, [facility] #[id number], Partial fill upon patient request if the prescription is for a schedule II opi... Start Date: 09/25/21 Status: Orderednaproxen 500 mg oral tablet 1 tablet, By Mouth, 2 times a day, PRN NEEDED FOR MILD PAIN, # 60 tablet, 0 Refills, Maintenance,09/25/21 10:27:00 EDT, [facility] #[id number], 155, cm, 09/25/21 9:35:00 EDT, Height Start [...]
--- OUTSIDE RECORDS SUMMARY | 2022-08-27 22:26 | XMS_ITS | Continuity of Care Document ---
:1994 Author Organization [facility] Address [address] [place] [address]- Care Team Providers Name Role Phone Jose L MIDDLETON, Anel Primary Care Physician [place] [facility] [place] 10/24/[place] - 11/29/[address] [address] Attending Physician: Arcelia Ortez MD Admitting Physician: [...] term) 94 Given 1Admin Note: vis given 05/29/201243466Cqqvw Note: VIS Aihjc8Epvxs Note: vis given Admin Note: VIS Knawj2Trscn Note: VIS Admin Note: VIS 02/08/2008 7Admin Note: hx varicella '948Admin Note: as default missing dates doc. Medications hydrOXYzine pamoate 25 mg oral capsule 1 capsule = 25 mg, By Mouth, 4 times a day, PRN for anxiety, # 40 capsule, 0 Refills, Maintenance, 09/25/21 10:24:00 EDT, Capsule, [facility] #[id number], Partial fill upon patient request if the prescription is for a schedule II opioid drug., 15... Start Date: 09/25/21 Status: OrderedLexapro 5 mg oral tablet 1 tablet = 5 mg, By Mouth, Daily, # 30 tablet, 0 Refills, Maintenance, 10/16/21 10:17:00 EST, Tablet, [facility] #[id number], Partial fill upon patient request if the prescription is for a schedule II opioid drug., 155, cm, 10/16/21 9:35:00 EST,... Start Date: 10/16/21 Status: Orderedmelatonin 3 mg oral tablet, extended release 1 tablet = 3 mg, By Mouth, Daily at bedtime, PRN as needed for insomnia, # 15 tablet, 0 Refills, Maintenance, 09/25/21 10:24:00 EDT, ER Tablet, [facility] #[id number], Partial fill upon patient request if the prescription is for a schedule II opi... Start Date: 09/25/21 Status: Orderednaproxen 500 mg oral tablet 1 tablet, By Mouth, 2 times a day, PRN NEEDED FOR MILD PAIN, # 60 tablet, 0 Refills, Maintenance,09/25/21 10:27:00 EDT, [facility] #[id number], 155, cm, 09/25/21 9:35:00 EDT, Height Start [...]
--- OUTSIDE RECORDS SUMMARY | 2022-08-27 22:26 | XMS_ITS | Continuity of Care Document ---
:1994 Author Organization [facility] Address [address] [place] [address]- Care Team Providers Name Role Phone Jose L MIDDLETON, Anel Primary Care Physician [place] [facility] [place](s): 08/29/21 - 11/01/21 [facility] [address] [place] [address] Attending Physician: Not on Staff, Attending MD [...] term) 94 Given 1Admin Note: vis given 05/29/201210961Ndpoa Note: VIS Ocxqq9Nksji Note: vis given Admin Note: VIS Ssioj9Azjik Note: VIS Admin Note: VIS 02/08/2008 7Admin Note: hx varicella '948Admin Note: as default missing dates doc. Medications hydrOXYzine pamoate 25 mg oral capsule 1 capsule = 25 mg, By Mouth, 4 times a day, PRN for anxiety, # 40 capsule, 0 Refills, Maintenance, 09/25/21 10:24:00 EDT, Capsule, [facility] #[id number], Partial fill upon patient request if the prescription is for a schedule II opioid drug., 15... Start Date: 09/25/21 Status: OrderedLexapro 5 mg oral tablet 1 tablet = 5 mg, By Mouth, Daily, # 30 tablet, 0 Refills, Maintenance, 10/16/21 10:17:00 EST, Tablet, [facility] #[id number], Partial fill upon patient request if the prescription is for a schedule II opioid drug., 155, cm, 10/16/21 9:35:00 EST,... Start Date: 10/16/21 Status: Orderedmelatonin 3 mg oral tablet, extended release 1 tablet = 3 mg, By Mouth, Daily at bedtime, PRN as needed for insomnia, # 15 tablet, 0 Refills, Maintenance, 09/25/21 10:24:00 EDT, ER Tablet, [facility] #[id number], Partial fill upon patient request if the prescription is for a schedule II opi... Start Date: 09/25/21 Status: Orderednaproxen 500 mg oral tablet 1 tablet, By Mouth, 2 times a day, PRN NEEDED FOR MILD PAIN, # 60 tablet, 0 Refills, Maintenance,09/25/21 10:27:00 EDT, [facility][id number], 155, cm, 09/25/21 9:35:00 EDT, Height Start [...]
--- OUTSIDE RECORDS SUMMARY | 2022-08-27 22:26 | XMS_ITS | Continuity of Care Document ---
:1994 Author Organization [facility] Address [address] [place] [address]- Care Team Providers Name Role Phone Jose L MIDDLETON, Anel Primary Care Physician En[place] [facility] [place] Date(s): 04/12/22 - 05/12/22 [facility] [address] [place] [address] Allergies, Adverse Reactions, Alerts Substance Reaction Severity [...] term) 94 Given 1Admin Note: vis given 05/29/201246842Tupyh Note: VIS Yhdxe3Vqxmu Note: vis given Admin Note: VIS Empwq1Wrtnt Note: VIS Admin Note: VIS 02/08/2008 7Admin Note: hx varicella '948Admin Note: as default missing dates doc. Medications famotidine 20 mg oral tablet 20 mg, 1, tablet, By Mouth, 2 times a day, PRN, # 60 tablet, Refills 0, Tot. Refills 0, Maintenance,Dyspepsia, 05/12/22 15:04:00 EDT, Route to Pharmacy Electronically, [facility] #[id number], Partial fill upon patient request if the prescription... Start Date: 05/12/22 Status: OrderedlevETIRAcetam 500 mg oral tablet 1 tablet = 500 mg, By Mouth, 2 times a day, # 60 tablet, 5 Refills, Maintenance, 04/23/22 9:29:00 EDT, Tablet, [facility] #[id number], Partial fill upon patient request if the [...]
--- OUTSIDE RECORDS SUMMARY | 2022-08-27 22:26 | XMS_ITS | Continuity of Care Document ---
:1994 Author Organization [facility] Address [address] [place] [address]- Care Team Providers Name Role Phone Jose L MIDDLETON, Anel Primary Care Physician Encounter [facility] Date(s): 01/23/21 - 02/26/[address] [address] Attending Physician: Yenifer Parmar MD Admitting Physician: Yenifer Parmar MD Referring Physician: Yenifer Parmar MD Allergies, Adverse Reactions, Alerts No Known [...] term) 94 Given 1Admin Note: vis given 05/29/201221478Qxmzs Note: VIS Ncgje6Wkboa Note: vis given Admin Note: VIS Fqwdf0Ynkke Note: VIS Admin Note: VIS 02/08/2008 7Admin Note: hx varicella '948Admin Note: as default missing dates doc. Medications Chloraseptic 6 mg-10 mg mucous membrane lozenge 1 lozenge, By Mouth, Every 2 hours, PRN for sore throat, # 18 each, 1 Refills, Maintenance, 07/15/2012:28:00 EDT, [facility]enge, [id number], 1 lozenge By Mouth Every 2 hours,PRN:for [...]
--- OUTSIDE RECORDS SUMMARY | 2022-08-27 22:26 | XMS_ITS | Continuity of Care Document ---
:1994 Author Organization [facility] Address [address] [place] [address]- Care Team Providers Name Role Phone Jose L MIDDLETON, Anel Primary Care Physician En[place] [facility] Date(s): 07/23/21 - 09/27/21 [facility] [address] [place] [address]- Attending Physician: Bry Lawson MD Admitting Physician: Bry Lawson MD Allergies, Adverse Reactions, Alerts Substance Reaction [...] Whl Cell/Tet(oldterm) 11/17/98 Given Diphth/Pertussis, Whl Cell/Tet(oldterm) 7/15/96 Given Diphth/Pertussis, Whl Cell/Tet(oldterm)8 06/24/95 Given Diphth/Pertussis, [...] term) 94 Given 1Admin Note: vis given 05/29/201212644Pytok Note: VIS Smzrw0Jbgif Note: vis given Admin Note: VIS Axgax7Bpvmu Note: VIS Admin Note: VIS 02/08/2008 7Admin Note: hx varicella '948Admin Note: as default missing dates doc. Medications hydrOXYzine pamoate 25 mg oral capsule 1 capsule = 25 mg, By Mouth, 4 times a day, PRN for anxiety, # 40 capsule, 0 Refills, Maintenance, 09/25/21 10:24:00 EDT, Capsule, [facility] #[id number], Partial fill upon patient request if the prescription is for a schedule II opioid drug., 15... Start Date: 09/25/21 Status: Orderedmelatonin 3 mg oral tablet, extended release 1 tablet = 3 mg, By Mouth, Daily at bedtime, PRN as needed for insomnia, # 15 tablet, 0 Refills, Maintenance, 09/25/21 10:24:00 EDT, ER Tablet, [facility] #[id number], Partial fill upon patient request if the prescription is for a schedule II opi... Start Date: 09/25/21 Status: Orderednaproxen 500 mg oral tablet 1 tablet, By Mouth, 2 times a day, PRN NEEDED FOR MILD PAIN, # 60 tablet, 0 Refills, Maintenance,09/25/21 10:27:00 EDT, [facility] #[id number], 155, cm, 09/25/21 9:35:00 EDT, Height Start [...]
--- OUTSIDE RECORDS SUMMARY | 2022-08-27 22:26 | XMS_ITS | Continuity of Care Document ---
:1994 Author Organization [facility] Address [address] [place] [address]- Care Team Providers Name Role Phone Jose L MIDDLETON, Anel Primary Care Physician Encounter [facility] Date(s): 04/16/20 - 06/06/20 [facility] [address] [place] [address]- [facility] Attending Physician: Bry Lawson MD Admitting Physician: Bry Lawson MD Allergies, Adverse Reactions, Alerts No Known [...] term) 94 Given 1Admin Note: vis given 05/29/201279626Yhofm Note: VIS Nfbnr4Cxqkh Note: vis given Admin Note: VIS Uerpa3Xclmp Note: VIS Admin Note: VIS 02/08/2008 7Admin [...] each, 11 Refills, Maintenance, 04/23/20 16:52:00 EDT, [facility] #[id number], 1 patch Topically Every week, 154, cm, [...]
--- OUTSIDE RECORDS SUMMARY | 2022-08-27 22:26 | XMS_ITS | Continuity of Care Document ---
:1994 Author Organization [facility] Address [address] [place] [address]- Care Team Providers Name Role Phone Anel Domingo MD Primary Care Physician Encounter [facility] Date(s): 06/02/21 - 07/02/21 [facility] [address] [place] [address] Allergies, Adverse Reactions, Alerts No [...] term) 94 Given 1Admin Note: vis given 05/29/201217208Cqxez Note: VIS Oanml9Mqdqu Note: vis given Admin Note: VIS Hahco5Wsrmd Note: VIS Admin Note: VIS 02/08/2008 7Admin Note: hx varicella '948Admin Note: as default missing dates doc. Medications Chloraseptic 6 mg-10 mg mucous membrane lozenge 1 lozenge, By Mouth, Every 2 hours, PRN for sore throat, # 18 each, 1 Refills, Maintenance, 07/15/2012:28:00 EDT, Lozenge, [facility] #[id number], 1 lozenge By Mouth Every 2 hours,PRN:for [...] Refills, Maintenance, 04/02/21 13:41:00 EDT, ER Tablet, [facility] #[id number], Partial fill upon patient requestif the prescription [...]
--- OUTSIDE RECORDS SUMMARY | 2022-08-27 22:26 | XMS_ITS | Continuity of Care Document ---
:1994 Author Organization [facility] Address [address] [place] [address]- Care Team Providers Name Role Phone Jose L MIDDLETON, Anel [id number]/12/[facility] - 02/20/[address] [address] Attending Physician: Yenifer Parmar MD Admitting Physician: Yenifer Parmar MD Referring Physician: Anel Domingo MD Allergies, Adverse Reactions, Alerts No Known [...] term) 94 Given 1Admin Note: vis given 05/29/201269063Xxwth Note: VIS Fzhpa2Dzafm Note: vis given Admin Note: VIS Jfnit2Sugdx Note: VIS Admin Note: VIS 02/08/2008 7Admin Note: hx varicella '948Admin Note: as default missing dates doc. Medications Chloraseptic 6 mg-10 mg mucous membrane lozenge 1 lozenge, By Mouth, Every 2 hours, PRN for sore throat, # 18 each, 1 Refills, Maintenance, 07/15/2012:28:00 EDT, [id number], 1 lozenge By Mouth Every 2 hours,PRN:for [...]
--- OUTSIDE RECORDS SUMMARY | 2022-08-27 22:26 | XMS_ITS | Continuity of Care Document ---
:1994 Author Organization [facility] Address [address] [place] [address]- Care Team Providers Name Role Phone Jose L MIDDLETON, Anel Primary Care Physician Encounter [facility] Date(s): 01/12/22 - 02/11/[address] [address] Allergies, Adverse Reactions, Alerts Substance [...] term) 94 Given 1Admin Note: vis given 05/29/201263156Rjyva Note: VIS Diurx4Qmoyd Note: vis given Admin Note: VIS Ekfbz8Beuwf Note: VIS Admin Note: VIS 02/08/2008 7Admin Note: hx varicella '948Admin Note: as default missing dates doc. Medications Apri 0.15 mg-0.03 mg oral tablet 1 tablet, By Mouth, Daily, # 84 tablet, 3 Refills, Maintenance, 01/11/22 9:44:00 EST, Tablet, [facility] #[id number], Partial fill upon patient request if the prescription is for a schedule II opioid drug., 1 tablet By Mouth Daily, 155, cm, 01/11... Start Date: 01/11/22 Status: OrderedhydrOXYzine pamoate 25 mg oral capsule 1 capsule = 25 mg, By Mouth, 4 times a day, PRN for anxiety, # 40 capsule, 0 Refills, Maintenance, 09/25/21 10:24:00 EDT, Capsule, [facility] #[id number], Partial fill upon patient request if the prescription is for a schedule II opioid drug., 15... Start Date: 09/25/21 Status: OrderedlevETIRAcetam 500 mg oral tablet 1 tablet = 500 mg, By Mouth, 2 times a day, # 60 tablet, 5 Refills, Maintenance, 12/04/21 10:54:00 EST, Tablet, [facility] #[id number], Partial fill upon patient request if the prescription is fora schedule II opioid drug., 155, cm, 10/16/21 9:3... Start Date: 12/04/21 Status: OrderedLexapro 5 mg oral tablet 1 tablet = 5 mg, By Mouth, Daily, # 30 tablet, 0 Refills, Maintenance, 10/16/21 10:17:00 EST, Tablet, [facility] #[id number], Partial fill upon patient request if the prescription is for a schedule II opioid drug., 155, cm, 10/16/21 9:35:00 EST,... Start Date: 10/16/21 Status: Orderedmelatonin 3 mg oral tablet, extended release 1 tablet = 3 mg, By Mouth, Daily at bedtime, PRN as needed for insomnia, # 15 tablet, 0 Refills, Maintenance, 09/25/21 10:24:00 EDT, ER Tablet, [facility] #[id number], Partial fill upon patient request if the prescription is for a schedule II opi... Start Date: 09/25/21 Status: Orderednaproxen 500 mg oral tablet 1 tablet, By Mouth, 2 times a day, PRN NEEDED FOR MILD PAIN, # 60 tablet, 0 Refills, Maintenance,09/25/21 10:27:00 EDT, [facility] #[id number], 155, cm, 09/25/21 9:35:00 EDT, Height Start [...]
--- OUTSIDE RECORDS SUMMARY | 2022-08-27 22:26 | XMS_ITS | Continuity of Care Document ---
:1994 Author Organization [facility] Address [address] [place] [address]- Care Team Providers Name Role Phone Jose L Lema MD Primary Care Physician Encounter [facility] R [id number] Date(s): 11/15/19 - 11/25/[address] [address] [facility] Attending Physician: Maco Torres Admitting Physician: Maco [...] term) 94 Given 1Admin Note: vis given 05/29/201254769Jfjtz Note: VIS Obyxb7Kztyb Note: vis given Admin Note: VIS Inhir6Cwhsh Note: VIS Admin Note: VIS 02/08/2008 7Admin [...] Start Date: 07/23/19 Stop Date: 02/18/20 Status: Ordered Problem List Condition Effective Dates Status Health Status Informant Dichorionic diamniotic twin Active gestation(Confirmed) Learning difficulties(Confirmed) Active Pain of breast(Confirmed) Active Social History Social History Type Response Tobacco Use: 4 or less cigarettes(le ss than 1/4 pack)/day in last 30 days. Sex Female
--- OUTSIDE RECORDS SUMMARY | 2022-08-27 22:26 | XMS_ITS | Continuity of Care Document ---
:1994 Author Organization [facility] Address [address] [place] [address]- Care Team Providers Name Role Phone Jose L Lema MD Primary Care Physician Encounter [facility] Date(s): 01/02/20 - 02/21/[address] [address] [facility] Attending Physician: Not on Staff, Attending MD Allergies, Adverse Reactions, Alerts No Known [...] Diphth/Pertussis, Whl Cell/Tet(oldterm) 06/11/96 Given Diphth/Pertussis, Whl Cell/Tet(oldterm) 06/24/95 Given Diphth/Pertussis, Whl Cell/Tet(oldterm) 04/24/95 Given [...] term) 94 Given 1Admin Note: vis given 05/29/201251687Hdkwi Note: VIS Qxugs6Btbhn Note: vis given Admin Note: VIS Pngen8Gaiut Note: VIS Admin Note: VIS 02/08/2008 7Admin [...] 4 Refills, Maintenance, 02/01/20 13:19:00 EST, Tablet, [facility] #[id number], 1 tablet By Mouth Daily, 154, cm, [...]
--- OUTSIDE RECORDS SUMMARY | 2022-08-27 22:26 | XMS_ITS | Continuity of Care Document ---
:1994 Author Organization [facility] Address [address] [place] [address]- Care Team Providers Name Role Phone Anel Domingo MD Primary Care Physician Encounter [facility] Date(s): 05/25/21 - 08/21/21 [facility] [address] [place] [address] Attending Physician: Bry Lawson MD Admitting Physician: [...] term) 94 Given 1Admin Note: vis given 05/29/201293307Aizxv Note: VIS Uzfsx3Xywdh Note: vis given Admin Note: VIS Vavul1Dnstu Note: VIS Admin Note: VIS 02/08/2008 7Admin Note: hx varicella '948Admin Note: as default missing dates doc. Medications Chloraseptic 6 mg-10 mg mucous membrane lozenge 1 lozenge, By Mouth, Every 2 hours, PRN for sore throat, # 18 each, 1 Refills, Maintenance, 07/15/2012:28:00 EDT, Lozenge, [facility] #[id number], 1 lozenge By Mouth Every 2 hours,PRN:for sore throat, 155, cm, 06/10/20 8:28:00 EDT, Height, 77, k... Start Date: 07/15/20 Status: Orderednaproxen 500 mg oral tablet 1 tablet, By Mouth, 2 times a day, PRN NEEDED FOR MILD PAIN, # 60 tablet, 0 Refills, [facility] #[id number], 155, cm, 04/02/21 13:06:00 EDT, Height Start Date: 08/03/21 Status: OrderedTEGretol XR 200 mg oral tablet, [...] Refills, Maintenance, 04/02/21 13:41:00 EDT, ER Tablet, [facility] #[id number], Partial fill upon patient requestif the prescription [...]
--- OUTSIDE RECORDS SUMMARY | 2022-08-27 22:26 | XMS_ITS | Continuity of Care Document ---
:1994 Author Organization [facility] Address [address] [place] [address]- Care Team Providers Name Role Phone Anel Domingo MD Primary Care Physician Encounter [facility] Date(s): 06/08/21 - 07/08/21 [facility] [address] [place] [address] Allergies, Adverse Reactions, Alerts No Known Medication [...] term) 94 Given 1Admin Note: vis given 05/29/201292566Nbrqd Note: VIS Pyqkt5Ukqol Note: vis given Admin Note: VIS Dnknf2Adtzm Note: VIS Admin Note: VIS 02/08/2008 7Admin Note: hx varicella '8Admin Note: as default missing dates doc. Medications Chloraseptic 6 mg-10 mg mucous membrane lozenge 1 lozenge, By Mouth, Every 2 hours, PRN for sore throat, # 18 each, 1 Refills, Maintenance, 07/15/2012:28:00 EDT, Lozenge, [facility] #[id number], 1 lozenge By Mouth Every 2 hours,PRN:for [...] Refills, Maintenance, 04/02/21 13:41:00 EDT, ER Tablet, [facility] #[id number], Partial fill upon patient requestif the prescription [...]
--- OUTSIDE RECORDS SUMMARY | 2022-08-27 22:26 | XMS_ITS | Continuity of Care Document ---
:1994 Author Organization [facility] Address [address] [place] [address]- Care Team Providers Name Role Phone Jose L MIDDLETON, Anel Primary Care Physician Encounter [facility] Date(s): 10/23/21 - 11/26/21 [facility] [address] [place] [address] Attending Physician: Not on [...] term) 94 Given 1Admin Note: vis given 05/29/201237696Hjkgh Note: VIS Sbtxy2Izjpb Note: vis given Admin Note: VIS Llfgs1Kqdzb Note: VIS Admin Note: VIS 02/08/2008 7Admin Note: hx varicella '948Admin Note: as default missing dates doc. Medications hydrOXYzine pamoate 25 mg oral capsule 1 capsule = 25 mg, By Mouth, 4 times a day, PRN for anxiety, # 40 capsule, 0 Refills, Maintenance, 09/25/21 10:24:00 EDT, Capsule, [facility] #[id number], Partial fill upon patient request if the prescription is for a schedule II opioid drug., 15... Start Date: 09/25/21 Status: OrderedLexapro 5 mg oral tablet 1 tablet = 5 mg, By Mouth, Daily, # 30 tablet, 0 Refills, Maintenance, 10/16/21 10:17:00 EST, Tablet, [facility] #[id number], Partial fill upon patient request if the prescription is for a schedule II opioid drug., 155, cm, 10/16/21 9:35:00 EST,... Start Date: 10/16/21 Status: Orderedmelatonin 3 mg oral tablet, extended release 1 tablet = 3 mg, By Mouth, Daily at bedtime, PRN as needed for insomnia, # 15 tablet, 0 Refills, Maintenance, 09/25/21 10:24:00 EDT, ER Tablet, [facility] #[id number], Partial fill upon patient request if the prescription is for a schedule II opi... Start Date: 09/25/21 Status: Orderednaproxen 500 mg oral tablet 1 tablet, By Mouth, 2 times a day, PRN NEEDED FOR MILD PAIN, # 60 tablet, 0 Refills, Maintenance,09/25/21 10:27:00 EDT, [facility] #[id number], 155, cm, 09/25/21 9:35:00 EDT, Height Start [...]
--- OUTSIDE RECORDS SUMMARY | 2022-08-27 22:27 | XMS_ITS | Continuity of Care Document ---
:[address] [facility] Address [address] [place] [address]- Care Team Providers Name Role Phone Jose L MIDDLETON, Anel Primary Care Physician [place] [facility](s[place] 12/02/20 - 01/03/[address] [address] Attending Physician: Wilfrido Pennington OD Admitting Physician: Wilfrido Pennington OD Allergies, Adverse Reactions, Alerts No Known Medication [...] term) 94 Given 1Admin Note: vis given 05/29/201219193Osahi Note: VIS Dokxp2Dcopa Note: vis given Admin Note: VIS Wprof2Oscqk Note: VIS Admin Note: VIS 02/08/2008 7Admin Note: hx varicella '8Admin Note: as default missing dates doc. Medications Chloraseptic 6 mg-10 mg mucous membrane lozenge 1 lozenge, By Mouth, Every 2 hours, PRN for sore throat, # 18 each, 1 Refills, Maintenance, 07/15/2012:28:00 EDT, Lozenge, [facility] #[id number], 1 lozenge By Mouth Every 2 hours,PRN:for [...]
--- OUTSIDE RECORDS SUMMARY | 2022-08-27 22:27 | XMS_ITS | Continuity of Care Document ---
:1994 Author Organization [facility] Address [address] [place] [address]- Care Team Providers Name Role Phone Jose L MIDDLETON, Anel Primary Care Physician Encounter [facility] Date(s): 04/12/22 - 05/12/22 [facility] [address] [place] [address] Attending Physician: Bry Lawson MD Admitting Physician: [...] term) 94 Given 1Admin Note: vis given 05/29/201297045Vojhh Note: VIS Epsrk7Ccfbg Note: vis given Admin Note: VIS Agbub5Mzbzg Note: VIS Admin Note: VIS 02/08/2008 7Admin Note: hx varicella '948Admin Note: as default missing dates doc. Medications famotidine 20 mg oral tablet 20 mg, 1, tablet, By Mouth, 2 times a day, PRN, # 60 tablet, Refills 0, Tot. Refills 0, Maintenance,Dyspepsia, 05/12/22 15:04:00 EDT, Route to Pharmacy Electronically, [facility] #[id number], Partial fill upon patient request if the prescription... Start Date: 05/12/22 Status: OrderedlevETIRAcetam 500 mg oral tablet 1 tablet = 500 mg, By Mouth, 2 times a day, # 60 tablet, 5 Refills, Maintenance, 04/23/22 9:29:00 EDT, Tablet, [facility] #[id number], Partial fill upon patient request if the [...]
--- OUTSIDE RECORDS SUMMARY | 2022-08-27 22:27 | XMS_ITS | Continuity of Care Document ---
:1994 Author Organization [facility] Address [address] [place] [address]- Care Team Providers Name Role Phone Jose L MIDDLETON, Anel Primary Care Physician Encounter [facility] Date(s): 04/29/22 - 06/02/22 [facility] [address] [place] [address]- Attending Physician: Diego Lopez MD Admitting Physician: Diego Lopez MD Referring Physician: Anel Domingo MD Allergies, [...] term) 94 Given 1Admin Note: vis given 05/29/201271394Bolan Note: VIS Pszjx6Dyhwy Note: vis given Admin Note: VIS Hcgty6Plylt Note: VIS Admin Note: VIS 02/08/2008 7Admin Note: hx varicella '948Admin Note: as default missing dates doc. Medications famotidine 20 mg oral tablet 20 mg, 1, tablet, By Mouth, 2 times a day, PRN, # 60 tablet, Refills 0, Tot. Refills 0, Maintenance,Dyspepsia, 05/12/22 15:04:00 EDT, Route to Pharmacy Electronically, [facility] #[id number], Partial fill upon patient request if the prescription... Start Date: 05/12/22 Status: OrderedlevETIRAcetam 500 mg oral tablet 1 tablet = 500 mg, By Mouth, 2 times a day, # 60 tablet, 5 Refills, Maintenance, 04/23/22 9:29:00 EDT, Tablet, [facility] #[id number], Partial fill upon patient request if the [...]
--- OUTSIDE RECORDS SUMMARY | 2022-08-27 22:27 | XMS_ITS | Continuity of Care Document ---
:1994 Author Organization [facility] Address [address] [place] [address]- Care Team Providers Name Role Phone Jose L MIDDLETON, Anel Primary Care Physician En[facility] Date(s): 06/27/20 - 07/27/20 [facility] [address] [place] [address] [facility] Allergies, Adverse Reactions, Alerts No Known Medication [...] term) 94 Given 1Admin Note: vis given 05/29/201202169Ivwdy Note: VIS Nfuza2Csnsc Note: vis given Admin Note: VIS Qjpba6Fhsmq Note: VIS Admin Note: VIS 02/08/2008 7Admin Note: hx varicella '948Admin Note: as default missing dates doc. Medications Chloraseptic 6 mg-10 mg mucous membrane lozenge 1 lozenge, By Mouth, Every 2 hours, PRN for sore throat, # 18 each, 1 Refills, Maintenance, 07/15/2012:28:00 EDT, Lozenge, [facility] #[id number], 1 lozenge By Mouth Every 2 hours,PRN:for [...]
--- OUTSIDE RECORDS SUMMARY | 2022-08-27 22:27 | XMS_ITS | Continuity of Care Document ---
:1994 Author Organization [facility] Address [address] [place] [address]- Care Team Providers Name Role Phone Jose L MIDDLETON, Anel Primary Care Physician Encounter [facility] Date(s): 02/19/22 - 03/21/22 [facility] [address] [place] [address] Attending Physician: Maco Torres Admitting Physician: Maco Torres Referring Physician: Maco Torres Allergies, Adverse Reactions, Alerts Substance Reaction Severity [...] term) 94 Given 1Admin Note: vis given 05/29/201257388Hiwef Note: VIS Vbtcq3Ebjek Note: vis given Admin Note: VIS Norft2Cgnow Note: VIS Admin Note: VIS 02/08/2008 7Admin Note: hx varicella '948Admin Note: as default missing dates doc. Medications Apri 0.15 mg-0.03 mg oral tablet 1 tablet, By Mouth, Daily, # 84 tablet, 3 Refills, Maintenance, 01/11/22 9:44:00 EST, Tablet, [facility] #95655, Partial fill upon patient request if the prescription is for a schedule II opioid drug., 1 tablet By Mouth Daily, 155, cm, 01/11... Start Date: 01/11/22 Status: OrderedhydrOXYzine pamoate 25 mg oral capsule 1 capsule = 25 mg, By Mouth, 4 times a day, PRN for anxiety, # 40 capsule, 0 Refills, Maintenance, 09/25/21 10:24:00 EDT, Capsule, [facility] #[id number], Partial fill upon patient request if the prescription is for a schedule II opioid drug., 15... Start Date: 09/25/21 Status: OrderedlevETIRAcetam 500 mg oral tablet 1 tablet = 500 mg, By Mouth, 2 times a day, # 60 tablet, 5 Refills, Maintenance, 12/04/21 10:54:00 EST, Tablet, [facility] #[id number], Partial fill upon patient request if the prescription is fora schedule II opioid drug., 155, cm, 10/16/21 9:3... Start Date: 12/04/21 Status: OrderedLexapro 5 mg oral tablet 1 tablet = 5 mg, By Mouth, Daily, # 30 tablet, 0 Refills, Maintenance, 10/16/21 10:17:00 EST, Tablet, [facility] #[id number], Partial fill upon patient request if the prescription is for a schedule II opioid drug., 155, cm, 10/16/21 9:35:00 EST,... Start Date: 10/16/21 Status: Orderedmelatonin 3 mg oral tablet, extended release 1 tablet = 3 mg, By Mouth, Daily at bedtime, PRN as needed for insomnia, # 15 tablet, 0 Refills, Maintenance, 09/25/21 10:24:00 EDT, ER Tablet, [facility] #[id number], Partial fill upon patient request if the prescription is for a schedule II opi... Start Date: 09/25/21 Status: Orderednaproxen 500 mg oral tablet 1 tablet, By Mouth, 2 times a day, PRN NEEDED FOR MILD PAIN, # 60 tablet, 0 Refills, Maintenance,09/25/21 10:27:00 EDT, [facility] #[id number], 155, cm, 09/25/21 9:35:00 EDT, Height Start [...]
--- OUTSIDE RECORDS SUMMARY | 2022-08-27 22:27 | XMS_ITS | Continuity of Care Document ---
:1994 Author Organization [facility] Address [address] [place] [address]- Care Team Providers Name Role Phone Jose L Lema MD Primary Care Physician Encounter [facility] Date(s): 03/28/20 - 04/04/20 [facility] [address] [place] [address] [facility] Attending Physician: Blas Tiwari MD Admitting Physician: Lulu MIDDLETON, Bry Obrien Allergies, Adverse [...] term) 94 Given 1Admin Note: vis given 05/29/201275102Mvhvy Note: VIS Gqdog7Xlugf Note: vis given Admin Note: VIS Yxoyj9Qslac Note: VIS Admin Note: VIS 02/08/2008 7Admin [...] 4 Refills, Maintenance, 02/01/20 13:19:00 EST, Tablet, [email or web address] #[id number], 1 tablet By Mouth Daily, 154, cm, [...]
--- OUTSIDE RECORDS SUMMARY | 2022-08-27 22:27 | XMS_ITS | Continuity of Care Document ---
:1994 Author Organization [facility] Address [address] [place] [address]- Care Team Providers Name Role Phone Jose L MIDDLETON, Anel Primary Care Physician En[place] [facility] [place] Date(s): 12/03/21 - 01/03/22 [facility] [address] [place] [id number] Attending Physician: Not on Staff, Attending [...] term) 94 Given 1Admin Note: vis given 05/29/201204985Rqbst Note: VIS Qphlc9Mpbsy Note: vis given Admin Note: VIS Zdkkz6Clfxd Note: VIS Admin Note: VIS 02/08/2008 7Admin Note: hx varicella '948Admin Note: as default missing dates doc. Medications hydrOXYzine pamoate 25 mg oral capsule 1 capsule = 25 mg, By Mouth, 4 times a day, PRN for anxiety, # 40 capsule, 0 Refills, Maintenance, 09/25/21 10:24:00 EDT, Capsule, [facility] #[id number], Partial fill upon patient request if the prescription is for a schedule II opioid drug., 15... Start Date: 09/25/21 Status: OrderedlevETIRAcetam 500 mg oral tablet 1 tablet = 500 mg, By Mouth, 2 times a day, # 60 tablet, 5 Refills, Maintenance, 12/04/21 10:54:00 EST, Tablet, [facility] #[id number], Partial fill upon patient request if the prescription is fora schedule II opioid drug., 155, cm, 10/16/21 9:3... Start Date: 12/04/21 Status: OrderedLexapro 5 mg oral tablet 1 tablet = 5 mg, By Mouth, Daily, # 30 tablet, 0 Refills, Maintenance, 10/16/21 10:17:00 EST, Tablet, [facility] #[id number], Partial fill upon patient request if the prescription is for a schedule II opioid drug., 155, cm, 10/16/21 9:35:00 EST,... Start Date: 10/16/21 Status: Orderedmelatonin 3 mg oral tablet, extended release 1 tablet = 3 mg, By Mouth, Daily at bedtime, PRN as needed for insomnia, # 15 tablet, 0 Refills, Maintenance, 09/25/21 10:24:00 EDT, ER Tablet, [facility] #[id number], Partial fill upon patient request if the prescription is for a schedule II opi... Start Date: 09/25/21 Status: Orderednaproxen 500 mg oral tablet 1 tablet, By Mouth, 2 times a day, PRN NEEDED FOR MILD PAIN, # 60 tablet, 0 Refills, Maintenance,09/25/21 10:27:00 EDT, [facility] #[id number], 155, cm, 09/25/21 9:35:00 EDT, Height Start [...]
--- OUTSIDE RECORDS SUMMARY | 2022-08-27 22:27 | XMS_ITS | Continuity of Care Document ---
:1994 Author Organization [facility] Address [address] [place] [address]- Care Team Providers Name Role Phone Jose L MIDDLETON, Anel Primary Care Physician En[place] [facility] [place] 07/17/20 - 08/16/20 [facility] [address] [place] [address]- [facility] Allergies, Adverse Reactions, Alerts No [...] term) 94 Given 1Admin Note: vis given 05/29/201200834Xdlww Note: VIS Selyy2Jdhoe Note: vis given Admin Note: VIS Yxawt5Lkeeg Note: VIS Admin Note: VIS 02/08/2008 7Admin Note: hx varicella '948Admin Note: as default missing dates doc. Medications Chloraseptic 6 mg-10 mg mucous membrane lozenge 1 lozenge, By Mouth, Every 2 hours, PRN for sore throat, # 18 each, 1 Refills, Maintenance, 07/15/2012:28:00 EDT, Lozenge, [facility] #[id number], 1 lozenge By Mouth Every 2 hours,PRN:for [...]
--- OUTSIDE RECORDS SUMMARY | 2022-08-27 22:27 | XMS_ITS | Continuity of Care Document ---
:1994 Author Organization [facility] Address [address] [place] [address]- Care Team Providers Name Role Phone Jose L Lema MD Primary Care Physician Encounter [facility] Date(s): 04/14/20 - 05/14/[address] [address]- [facility] Attending Physician: Not on Staff, [...] term) 94 Given 1Admin Note: vis given 05/29/201222614Ulzbr Note: VIS Bwgcc1Rdgzo Note: vis given Admin Note: VIS Vjhfe8Hjmue Note: VIS Admin Note: VIS 02/08/2008 7Admin [...] each, 11 Refills, Maintenance, 04/23/20 16:52:00 EDT, [facility] #[id number], 1 patch Topically Every week, 154, cm, [...]
--- OUTSIDE RECORDS SUMMARY | 2022-08-27 22:27 | XMS_ITS | Continuity of Care Document ---
:1994 Author Organization [facility] Address [address] [place] [address]- Care Team Providers Name Role Phone Jose L MIDDLETON, Anel Primary Care Physician Encounter [facility] [place] Date(s): 08/20/20 - 09/19/20 [facility] [address] [place] [address]- [facility] Allergies, Adverse Reactions, Alerts [...] term) 94 Given 1Admin Note: vis given 05/29/201242751Xhmws Note: VIS Uguau8Fvrfy Note: vis given Admin Note: VIS Ajbln1Sujje Note: VIS Admin Note: VIS 02/08/2008 7Admin Note: hx varicella '948Admin Note: as default missing dates doc. Medications Chloraseptic 6 mg-10 mg mucous membrane lozenge 1 lozenge, By Mouth, Every 2 hours, PRN for sore throat, # 18 each, 1 Refills, Maintenance, 07/15/2012:28:00 EDT, Lozenge, [facility] #[id number], 1 lozenge By Mouth Every 2 hours,PRN:for [...]
--- OUTSIDE RECORDS SUMMARY | 2022-08-27 22:27 | XMS_ITS | Continuity of Care Document ---
:1994 Author Organization [facility] Address [address] [place] [address]- Care Team Providers Name Role Phone Jose L MIDDLETON, Anel Primary Care Physician Encounter [facility] Date(s): 04/02/21 - 05/02/21 [facility] [address] [place] [id number] Allergies, Adverse Reactions, Alerts No Known Medication [...] term) 94 Given 1Admin Note: vis given 05/29/201282596Xzxiu Note: VIS Tcgaw6Wxxil Note: vis given Admin Note: VIS Drxim7Rqprc Note: VIS Admin Note: VIS 02/08/2008 7Admin Note: hx varicella '948Admin Note: as default missing dates doc. Medications Chloraseptic 6 mg-10 mg mucous membrane lozenge 1 lozenge, By Mouth, Every 2 hours, PRN for sore throat, # 18 each, 1 Refills, Maintenance, 07/15/2012:28:00 EDT, Lozenge, [facility] #[id number], 1 lozenge By Mouth Every 2 hours,PRN:for [...] Refills, Maintenance, 04/02/21 13:41:00 EDT, ER Tablet, [facility] #[id number], Partial fill upon patient requestif the prescription [...]
--- OUTSIDE RECORDS SUMMARY | 2022-08-27 22:27 | XMS_ITS | Continuity of Care Document ---
:1994 Author Organization [facility] Address [address] [place] [address]- Care Team Providers Name Role Phone Jose L MIDDLETON, Anel Primary Care Physician Encounter [facility] [place] Date(s): 06/30/20 - 07/30/20 [facility] [address] [place] [address]- [facility] Allergies, Adverse Reactions, Alerts No [...] term) 94 Given 1Admin Note: vis given 05/29/201295565Qdzry Note: VIS Locba4Epzsa Note: vis given Admin Note: VIS Llevo4Urdkf Note: VIS Admin Note: VIS 02/08/2008 7Admin Note: hx varicella '948Admin Note: as default missing dates doc. Medications Chloraseptic 6 mg-10 mg mucous membrane lozenge 1 lozenge, By Mouth, Every 2 hours, PRN for sore throat, # 18 each, 1 Refills, Maintenance, 07/15/2012:28:00 EDT, Lozenge, [facility] #[id number], 1 lozenge By Mouth Every 2 hours,PRN:for [...]
--- OUTSIDE RECORDS SUMMARY | 2022-08-27 22:27 | XMS_ITS | Continuity of Care Document ---
:1994 Author Organization [facility] Address [address] [place] [address]- Care Team Providers Name Role Phone Jose L Lema MD Primary Care Physician [place] [facility] [place] Date(s): 04/16/20 - 04/23/[address] [address]- [facility] Attending Physician: Kendra Bates MD Referring Physician: Jose L Lema MD [...] term) 94 Given 1Admin Note: vis given 05/29/201255979Ridlv Note: VIS Fgeom9Xuoli Note: vis given Admin Note: VIS Iplqa1Oeoox Note: VIS Admin Note: VIS 02/08/2008 7Admin [...] each, 11 Refills, Maintenance, 04/23/20 16:52:00 EDT, [facility] #[id number], 1 patch Topically Every week, 154, cm, 04/23/20 16:13:00 EDT, Height, 77, kg, 03/03/19 4:10:00 EDT, Dry Weight Start Date: 04/23/20 Status: Ordered Problem List Condition Effective Dates Status Health Status Informant Learning difficulties(Confirmed) Active Vitamin D deficiency(Confirmed) 01/30/14 Active Vital Signs Most recent to oldest [Reference Range]: 1 Height 154 cm (04/16/20 2:04 PM) Social History Social History Type Response Tobacco Use: 4 or less cigarettes(le ss than 1/4 pack)/day in last 30 days. Sex Female
--- OUTSIDE RECORDS SUMMARY | 2022-08-27 22:27 | XMS_ITS | Continuity of Care Document ---
:1994 Author Organization [facility] Address [address] [place] [address]- Care Team Providers Name Role Phone Jose L Lema MD Primary Care Physician Encounter [facility] [place] [facility] [id number] Date(s): 04/14/20 - 05/14/[address] [address]- [facility] Attending Physician: Maco Torres Admitting Physician: Maco [...] term) 94 Given 1Admin Note: vis given 05/29/201274592Dhpbc Note: VIS Bcegm0Azspe Note: vis given Admin Note: VIS Fjszy5Njnnj Note: VIS Admin Note: VIS 02/08/2008 7Admin [...] each, 11 Refills, Maintenance, 04/23/20 16:52:00 EDT, [facility] #[id number], 1 patch Topically Every week, 154, cm, [...]
--- OUTSIDE RECORDS SUMMARY | 2022-08-27 22:27 | XMS_ITS | Continuity of Care Document ---
:1994 Author Organization [facility] Address [address] [place] [address]- Care Team Providers Name Role Phone Jose L MIDDLETON, Anel Primary Care Physician Encounter [facility] Date(s): 07/18/20 - 10/05/[address] [id number] Attending Physician: Not on Staff, Attending [...] term) 94 Given 1Admin Note: vis given 05/29/201250638Houdc Note: VIS Qlqoi8Srwer Note: vis given Admin Note: VIS Qlwoz4Kirft Note: VIS Admin Note: VIS 02/08/2008 7Admin Note: hx varicella '8Admin Note: as default missing dates doc. Medications Chloraseptic 6 mg-10 mg mucous membrane lozenge 1 lozenge, By Mouth, Every 2 hours, PRN for sore throat, # 18 each, 1 Refills, Maintenance, 07/15/2012:28:00 EDT, Lozenge, [facility][id number], 1 lozenge By Mouth Every 2 hours,PRN:for [...]
--- OUTSIDE RECORDS SUMMARY | 2022-08-27 22:27 | XMS_ITS | Continuity of Care Document ---
:1994 Author Organization [facility] Address [address] [place] [address]- Care Team Providers Name Role Phone Jose L MIDDLETON, Anel Primary Care Physician Encounter [facility] Date(s): 04/23/20 - 08/21/[address] [address]- [facility] Attending Physician: Not on Staff, [...] term) 94 Given 1Admin Note: vis given 05/29/201253803Qteyz Note: VIS Bupfz4Feygg Note: vis given Admin Note: VIS Qqonh7Vxpqv Note: VIS Admin Note: VIS 02/08/2008 7Admin Note: hx varicella '8Admin Note: as default missing dates doc. Medications Chloraseptic 6 mg-10 mg mucous membrane lozenge 1 lozenge, By Mouth, Every 2 hours, PRN for sore throat, # 18 each, 1 Refills, Maintenance, 07/15/2012:28:00 EDT, [facility]enge, [id number], 1 lozenge By Mouth Every 2 hours,PRN:for [...]
--- OUTSIDE RECORDS SUMMARY | 2022-08-27 22:27 | XMS_ITS | Continuity of Care Document ---
:1994 Author Organization [facility] Address [address] [place] [address]- Care Team Providers Name Role Phone Jose L MIDDLETON, Anel Primary Care Physician Encounter [facility] Date(s): 05/12/22 - 06/11/22 [facility] [address] [place] [id number] Attending Physician: Maco [...] term) 94 Given 1Admin Note: vis given 05/29/201245376Fjkwy Note: VIS Qcfck0Zstgj Note: vis given Admin Note: VIS Mlqpm9Fxcqt Note: VIS Admin Note: VIS 02/08/2008 7Admin Note: hx varicella '948Admin Note: as default missing dates doc. Medications famotidine 20 mg oral tablet 20 mg, 1, tablet, By Mouth, 2 times a day, PRN, # 60 tablet, Refills 0, Tot. Refills 0, Maintenance,Dyspepsia, 05/12/22 15:04:00 EDT, Route to Pharmacy Electronically, [facility] #[id number], Partial fill upon patient request if the prescription... Start Date: 05/12/22 Status: OrderedlevETIRAcetam 500 mg oral tablet 1 tablet = 500 mg, By Mouth, 2 times a day, # 60 tablet, 5 Refills, Maintenance, 04/23/22 9:29:00 EDT, Tablet, [facility] #[id number], Partial fill upon patient request if the [...]
--- OUTSIDE RECORDS SUMMARY | 2022-08-27 22:27 | XMS_ITS | Continuity of Care Document ---
:1994 Author Organization [facility] Address [address] [place] [address]- Care Team Providers Name Role Phone Anel Domingo MD Primary Care Physician Encounter [facility] Date(s): 07/22/21 - 08/21/21 [facility] [address] [place] [id number] Allergies, [...] term) 94 Given 1Admin Note: vis given 05/29/201288187Pgitb Note: VIS Zmkiy2Txngr Note: vis given Admin Note: VIS Iskpg0Jysqg Note: VIS Admin Note: VIS 02/08/2008 7Admin Note: hx varicella '8Admin Note: as default missing dates doc. Medications Chloraseptic 6 mg-10 mg mucous membrane lozenge 1 lozenge, By Mouth, Every 2 hours, PRN for sore throat, # 18 each, 1 Refills, Maintenance, 07/15/2012:28:00 EDT, Lozenge, [facility] #[id number], 1 lozenge By Mouth Every 2 hours,PRN:for sore throat, 155, cm, 06/10/20 8:28:00 EDT, Height, 77, k... Start Date: 07/15/20 Status: Orderednaproxen 500 mg oral tablet 1 tablet, By Mouth, 2 times a day, PRN NEEDED FOR MILD PAIN, # 60 tablet, 0 Refills, [facility] #[id number], 155, cm, 04/02/21 13:06:00 EDT, Height Start [...] Refills, Maintenance, 04/02/21 13:41:00 EDT, ER Tablet, [facility] #[id number], Partial fill upon patient requestif the prescription [...]
--- OUTSIDE RECORDS SUMMARY | 2022-08-27 22:27 | XMS_ITS | Continuity of Care Document ---
:1994 Author Organization [facility] Address [address] [place] [address]- Care Team Providers Name Role Phone Jose L Lema MD Primary Care Physician Encounter [facility] Date(s): 04/01/20 - 04/08/20 [facility] [address] [place] [address]- [facility] Attending Physician: Jorje Foreman MD Allergies, Adverse Reactions, Alerts No Known [...] term) 94 Given 1Admin Note: vis given 05/29/201202614Hzmok Note: VIS Ojwqg0Narxa Note: vis given Admin Note: VIS Znqki5Tlmbk Note: VIS Admin Note: VIS 02/08/2008 7Admin [...] 4 Refills, Maintenance, 02/01/20 13:19:00 EST, Tablet, [facility] #[id number], 1 tablet By Mouth Daily, 154, cm, [...]
--- OUTSIDE RECORDS SUMMARY | 2022-08-27 22:27 | XMS_ITS | Continuity of Care Document ---
:1994 Author Organization [facility] Address [address] [place] [address]- Care Team Providers Name Role Phone Anel Domingo MD Primary Care Physician [place] [facility] [place](s): 06/24/20 - 07/24/20 [facility] [address] [place] [address]- [facility] Allergies, Adverse Reactions, Alerts No [...] term) 94 Given 1Admin Note: vis given 05/29/201227545Wzvnp Note: VIS Wkgbc8Ukrdt Note: vis given Admin Note: VIS Yhesy3Aenfh Note: VIS Admin Note: VIS 02/08/2008 7Admin Note: hx varicella '948Admin Note: as default missing dates doc. Medications Chloraseptic 6 mg-10 mg mucous membrane lozenge 1 lozenge, By Mouth, Every 2 hours, PRN for sore throat, # 18 each, 1 Refills, Maintenance, 07/15/2012:28:00 EDT, Lozenge, [facility] #[id number], 1 lozenge By Mouth Every 2 hours,PRN:for [...]
--- OUTSIDE RECORDS SUMMARY | 2022-08-27 22:27 | XMS_ITS | Continuity of Care Document ---
:1994 Author Organization [facility] Address [address] [place] [address]- Care Team Providers Name Role Phone Anel Domingo MD Primary Care Physician Encounter [facility] [place] Date(s): 08/08/20 - 09/07/20 [facility] [address] [place] [address]- [facility] Attending Physician: Maco Torres Admitting Physician: Maco [...] term) 94 Given 1Admin Note: vis given 05/29/201292797Tzzuw Note: VIS Jvzsr7Sgpfs Note: vis given Admin Note: VIS Tbbas8Sxfcf Note: VIS Admin Note: VIS 02/08/2008 7Admin Note: hx varicella '8Admin Note: as default missing dates doc. Medications Chloraseptic 6 mg-10 mg mucous membrane lozenge 1 lozenge, By Mouth, Every 2 hours, PRN for sore throat, # 18 each, 1 Refills, Maintenance, 07/15/2012:28:00 EDT, Lozenge, [facility] #[id number], 1 lozenge By Mouth Every 2 hours,PRN:for [...]
--- OUTSIDE RECORDS SUMMARY | 2022-08-27 22:27 | XMS_ITS | Continuity of Care Document ---
:1994 Author Organization [facility] Address [address] [place] [address]- Care Team Providers Name Role Phone Anel Domingo MD Primary Care Physician [place] [facility] [place] 08/07/20 [facility] [address] [place] [address]- [facility] Allergies, Adverse Reactions, Alerts No Known Medication [...] term) 94 Given 1Admin Note: vis given 05/29/201232949Sgvsk Note: VIS Oando6Jcxmi Note: vis given Admin Note: VIS Nqvch0Mspdn Note: VIS Admin Note: VIS 02/08/2008 7Admin Note: hx varicella '948Admin Note: as default missing dates doc. Medications Chloraseptic 6 mg-10 mg mucous membrane lozenge 1 lozenge, By Mouth, Every 2 hours, PRN for sore throat, # 18 each, 1 Refills, Maintenance, 07/15/2012:28:00 EDT, Lozenge, [facility] #[id number], 1 lozenge By Mouth Every 2 hours,PRN:for [...]
--- OUTSIDE RECORDS SUMMARY | 2022-08-27 22:27 | XMS_ITS | Continuity of Care Document ---
:1994 Author Organization [facility] Address [address] [place] [address]- Care Team Providers Name Role Phone Anel Domingo MD Primary Care Physician Encounter [facility] [place] Date(s): 04/01/21 - 04/01/[address] [address]- Discharge Disposition: A-D/C Walkout Attending Physician: Not on Staff, Attending MD Admitting Physician: Not on Staff, Admitting MD Referring Physician: Not on Staff, Referring [...] term) 94 Given 1Admin Note: vis given 05/29/201225841Xcqym Note: VIS Bjmjp4Deyxu Note: vis given Admin Note: VIS Zpykf5Wspde Note: VIS Admin Note: VIS 02/08/2008 7Admin Note: hx varicella '948Admin Note: as default missing dates doc. Medications Chloraseptic 6 mg-10 mg mucous membrane lozenge 1 lozenge, By Mouth, Every 2 hours, PRN for sore throat, # 18 each, 1 Refills, Maintenance, 07/15/2012:28:00 EDT, Lozenge, [facility] #[id number], 1 lozenge By Mouth Every 2 hours,PRN:for sore throat, 155, cm, 06/10/20 8:28:00 EDT, Height, 77, k... Start Date: 07/15/20 Status: Ordered Problem List Condition Effective Dates Status Health Status Informant Learning difficulties(Confirmed) Active Myopia(Confirmed) Active Vitamin D deficiency(Confirmed) 01/30/14 Active Vital Signs Most recent to oldest 1 2 3 [Reference Range]: Oxygen Saturation [94-100 %] 99 % 100 % 100 % (04/01/21 4:47 PM) (04/01/21 12:10 PM) (04/01/21 12:03 PM) Pulse Rate [55-90 bpm] 84 bpm 91 bpm 87 bpm (04/01/21 4:47 PM) *H* (04/01/21 12:03 P M) (04/01/21 12:10 PM) Blood Pressure [90-138/55-84 mm 120/77 mm Hg 128/90 mm Hg Hg] (04/01/21 4:47 PM) (04/01/21 12:10 PM) Respiratory Rate [16-30 br/min] 18 br/min 18 br/min (04/01/21 4:47 PM) (04/01/21 12:10 PM) Temperature [96.8-100.4 DegF] 98.6 DegF (04/01/21 12:10 PM) Mode of Delivery (Oxygen) Room air Room air Room a ir (04/01/21 4:47 PM) (04/01/21 12:10 PM) (04/01/21 12:03 PM) Blood pressure sites Arm, right Arm, right (04/01/21 4:47 PM) (04/01/21 12:10 PM) Temperature Route Oral (04/01/21 12:10 PM) Social History Social History Type Response Tobacco Use: 4 or less cigarettes(le ss than 1/4 pack)/day in last 30 days. Sex Female
--- OUTSIDE RECORDS SUMMARY | 2022-08-27 22:27 | XMS_ITS | Continuity of Care Document ---
:1994 Author Organization [facility] Address [address] [facility], [address]rd Floor, [address] [place] [address]- Care Team Providers Name Role Phone Anel Domingo MD Primary Care Physician [place] [facility] [place] - 09/13/20 [facility] [address] [facility], [address], [address] [place] [address]- [facility] Attending Physician: Maco Torres Admitting Physician: Maco Torres Referring Physician: Admtr, [id number] Allergies, Adverse Reactions, Alerts No Known Medication [...] term) 94 Given 1Admin Note: vis given 05/29/201214738Djpfe Note: VIS Zdmij4Jdami Note: vis given Admin Note: VIS Soqqh5Jvwoi Note: VIS Admin Note: VIS 02/08/2008 7Admin Note: hx varicella '8Admin Note: as default missing dates doc. Medications Chloraseptic 6 mg-10 mg mucous membrane lozenge 1 lozenge, By Mouth, Every 2 hours, PRN for sore throat, # 18 each, 1 Refills, Maintenance, 07/15/2012:28:00 EDT, Lozenge, [facility] #[id number], 1 lozenge By Mouth Every 2 hours,PRN:for [...]
--- OUTSIDE RECORDS SUMMARY | 2022-08-27 22:27 | XMS_ITS | Continuity of Care Document ---
:1994 Author Organization [facility] Address [address] [place] [address]- Care Team Providers Name Role Phone Jose L MIDDLETON, Anel Primary Care Physician [facility]counter [facility] Date(s): 10/02/21 - 11/01/21 [facility] [address] [place] [address] Attending Physician: Maco Torres [...] term) 94 Given 1Admin Note: vis given 05/29/201220634Yzdku Note: VIS Zspwg5Bklge Note: vis given Admin Note: VIS Lalts0Kuxnr Note: VIS Admin Note: VIS 02/08/2008 7Admin Note: hx varicella '948Admin Note: as default missing dates doc. Medications hydrOXYzine pamoate 25 mg oral capsule 1 capsule = 25 mg, By Mouth, 4 times a day, PRN for anxiety, # 40 capsule, 0 Refills, Maintenance, 09/25/21 10:24:00 EDT, Capsule, [facility] #[id number], Partial fill upon patient request if the prescription is for a schedule II opioid drug., 15... Start Date: 09/25/21 Status: OrderedLexapro 5 mg oral tablet 1 tablet = 5 mg, By Mouth, Daily, # 30 tablet, 0 Refills, Maintenance, 10/16/21 10:17:00 EST, Tablet, [facility] #[id number], Partial fill upon patient request if the prescription is for a schedule II opioid drug., 155, cm, 10/16/21 9:35:00 EST,... Start Date: 10/16/21 Status: Orderedmelatonin 3 mg oral tablet, extended release 1 tablet = 3 mg, By Mouth, Daily at bedtime, PRN as needed for insomnia, # 15 tablet, 0 Refills, Maintenance, 09/25/21 10:24:00 EDT, ER Tablet, [facility] #[id number], Partial fill upon patient request if the prescription is for a schedule II opi... Start Date: 09/25/21 Status: Orderednaproxen 500 mg oral tablet 1 tablet, By Mouth, 2 times a day, PRN NEEDED FOR MILD PAIN, # 60 tablet, 0 Refills, Maintenance,09/25/21 10:27:00 EDT, [facility] #[id number], 155, cm, 09/25/21 9:35:00 EDT, Height Start [...]
--- OUTSIDE RECORDS SUMMARY | 2022-08-27 22:27 | XMS_ITS | Continuity of Care Document ---
:1994 Author Organization [facility] Address [address] [place] [address]- Care Team Providers Name Role Phone Jose L MIDDLETON, Anel Primary Care Physician [place] [facility] [place]s): 03/02/21 - 04/05/21 [facility] [address] [place] [address]- Attending Physician: Beronica No DO Admitting Physician: Beronica No DO Referring Physician: Lulu MIDDLETON, Bry Obrien Allergies, Adverse [...] term) 94 Given 1Admin Note: vis given 05/29/201224617Qwyje Note: VIS Qmwms0Ehofs Note: vis given Admin Note: VIS Kvcjo3Rppbf Note: VIS Admin Note: VIS 02/08/2008 7Admin Note: hx varicella '948Admin Note: as default missing dates doc. Medications Chloraseptic 6 mg-10 mg mucous membrane lozenge 1 lozenge, By Mouth, Every 2 hours, PRN for sore throat, # 18 each, 1 Refills, Maintenance, 07/15/2012:28:00 EDT, Lozenge, [facility] #[id number], 1 lozenge By Mouth Every 2 hours,PRN:for [...] Refills, Maintenance, 04/02/21 13:41:00 EDT, ER Tablet, [facility][id number], Partial fill upon patient requestif the prescription [...]
--- OUTSIDE RECORDS SUMMARY | 2022-08-27 22:28 | XMS_ITS | Continuity of Care Document ---
:1994 Author Organization [facility] Address [address] [place] [address]- Care Team Providers Name Role Phone Jose L MIDDLETON, Anel Primary Care Physician Encounter [facility] Date(s): 01/08/22 - 02/07/[address] [address] Allergies, Adverse Reactions, Alerts Substance Reaction [...] term) 94 Given 1Admin Note: vis given 05/29/201275744Rpuci Note: VIS Xxyxi2Gmwzw Note: vis given Admin Note: VIS Aukfi6Ujbna Note: VIS Admin Note: VIS 02/08/2008 7Admin Note: hx varicella '948Admin Note: as default missing dates doc. Medications Apri 0.15 mg-0.03 mg oral tablet 1 tablet, By Mouth, Daily, # 84 tablet, 3 Refills, Maintenance, 01/11/22 9:44:00 EST, Tablet, [facility] #[id number], Partial fill upon patient request if the prescription is for a schedule II opioid drug., 1 tablet By Mouth Daily, 155, cm, 01/11... Start Date: 01/11/22 Status: OrderedhydrOXYzine pamoate 25 mg oral capsule 1 capsule = 25 mg, By Mouth, 4 times a day, PRN for anxiety, # 40 capsule, 0 Refills, Maintenance, 09/25/21 10:24:00 EDT, Capsule, [facility] #[id number], Partial fill upon patient request if the prescription is for a schedule II opioid drug., 15... Start Date: 09/25/21 Status: OrderedlevETIRAcetam 500 mg oral tablet 1 tablet = 500 mg, By Mouth, 2 times a day, # 60 tablet, 5 Refills, Maintenance, 12/04/21 10:54:00 EST, Tablet, [facility] #[id number], Partial fill upon patient request if the prescription is fora schedule II opioid drug., 155, cm, 10/16/21 9:3... Start Date: 12/04/21 Status: OrderedLexapro 5 mg oral tablet 1 tablet = 5 mg, By Mouth, Daily, # 30 tablet, 0 Refills, Maintenance, 10/16/21 10:17:00 EST, Tablet, [facility] #[id number], Partial fill upon patient request if the prescription is for a schedule II opioid drug., 155, cm, 10/16/21 9:35:00 EST,... Start Date: 10/16/21 Status: Orderedmelatonin 3 mg oral tablet, extended release 1 tablet = 3 mg, By Mouth, Daily at bedtime, PRN as needed for insomnia, # 15 tablet, 0 Refills, Maintenance, 09/25/21 10:24:00 EDT, ER Tablet, [facility] #[id number], Partial fill upon patient request if the prescription is for a schedule II opi... Start Date: 09/25/21 Status: Orderednaproxen 500 mg oral tablet 1 tablet, By Mouth, 2 times a day, PRN NEEDED FOR MILD PAIN, # 60 tablet, 0 Refills, Maintenance,09/25/21 10:27:00 EDT, [facility] #[id number], 155, cm, 09/25/21 9:35:00 EDT, Height Start [...]
--- OUTSIDE RECORDS SUMMARY | 2022-08-27 22:28 | XMS_ITS | Continuity of Care Document ---
:[address] [facility] Address [address] [place] [address]- Care Team Providers Name Role Phone Jose L MIDDLETON, Anel Primary Care Physician Encounter [facility] [place] Date(s): 03/23/21 - 06/14/21 [facility] [address] [place] [address]- Attending Physician: Arcelia Ortez MD Admitting Physician: Arcelia Ortez MD Referring Physician: Anel Domingo MD Allergies, [...] term) 94 Given 1Admin Note: vis given 05/29/201219618Inmuk Note: VIS Dxomo6Gkzwd Note: vis given Admin Note: VIS Rahdt3Wlcwj Note: VIS Admin Note: VIS 02/08/2008 7Admin Note: hx varicella '948Admin Note: as default missing dates doc. Medications Chloraseptic 6 mg-10 mg mucous membrane lozenge 1 lozenge, By Mouth, Every 2 hours, PRN for sore throat, # 18 each, 1 Refills, Maintenance, 07/15/2012:28:00 EDT, Lozenge, [facility] #[id number], 1 lozenge By Mouth Every 2 hours,PRN:for [...] Refills, Maintenance, 04/02/21 13:41:00 EDT, ER Tablet, [facility] #[id number], Partial fill upon patient requestif the prescription [...]
--- OUTSIDE RECORDS SUMMARY | 2022-08-27 22:28 | XMS_ITS | Continuity of Care Document ---
:[address] [facility] Address [address] [place] [address]- Care Team Providers Name Role Phone Jose L MIDDLETON, Anel Primary Care Physician [place] [facility] [place] 01/[place] - 03/05/21 [facility] [address] [place] [address] Attending Physician: Not on Staff, Attending [...] term) 94 Given 1Admin Note: vis given 05/29/201202231Vlfrp Note: VIS Iwlfc7Eofsa Note: vis given Admin Note: VIS Doklq1Qcpgu Note: VIS Admin Note: VIS 02/08/2008 7Admin Note: hx varicella '948Admin Note: as default missing dates doc. Medications Chloraseptic 6 mg-10 mg mucous membrane lozenge 1 lozenge, By Mouth, Every 2 hours, PRN for sore throat, # 18 each, 1 Refills, Maintenance, 07/15/2012:28:00 EDT, Lozenge, [facility] #[id number], 1 lozenge By Mouth Every 2 hours,PRN:for [...]
--- OUTSIDE RECORDS SUMMARY | 2022-08-27 22:28 | XMS_ITS | Continuity of Care Document ---
:1994 Author Organization [facility] Address [address] [place] [address]- Care Team Providers Name Role Phone Anel Domingo MD Primary Care Physician Encounter [facility] Date(s): 07/03/21 - 08/02/21 [facility] [address] [place] [address] Attending Physician: Bry Lawson MD Admitting Physician: [...] term) 94 Given 1Admin Note: vis given 05/29/201223539Fxthv Note: VIS Zkcfl5Acwod Note: vis given Admin Note: VIS Pjawr2Bdfhy Note: VIS Admin Note: VIS 02/08/2008 7Admin Note: hx varicella '948Admin Note: as default missing dates doc. Medications Chloraseptic 6 mg-10 mg mucous membrane lozenge 1 lozenge, By Mouth, Every 2 hours, PRN for sore throat, # 18 each, 1 Refills, Maintenance, 07/15/2012:28:00 EDT, Lozenge, [facility] #[id number], 1 lozenge By Mouth Every 2 hours,PRN:for [...] Refills, Maintenance, 04/02/21 13:41:00 EDT, ER Tablet, [facility] #[id number], Partial fill upon patient requestif the prescription [...]
--- OUTSIDE RECORDS SUMMARY | 2022-08-27 22:28 | XMS_ITS | Continuity of Care Document ---
:1994 Author Organization [facility] Address [address] [place] [address]- Care Team Providers Name Role Phone Anel Domingo MD Primary Care Physician Encounter [facility] Date(s): 05/09/20 - 06/08/[address] [address]- [facility] Attending Physician: Maco Torers Admitting Physician: Maco Torres Referring Physician: Maco [...] term) 94 Given 1Admin Note: vis given 05/29/201262188Rtztq Note: VIS Aeomg7Xniiz Note: vis given Admin Note: VIS Wrlgg0Bpwji Note: VIS Admin Note: VIS 02/08/2008 7Admin [...] each, 11 Refills, Maintenance, 04/23/20 16:52:00 EDT, [id number], 1 patch Topically Every week, 154, cm, [...]
--- OUTSIDE RECORDS SUMMARY | 2022-08-27 22:28 | XMS_ITS | Continuity of Care Document ---
:1994 Author Organization [facility] Address [address] [place] [address]- Care Team Providers Name Role Phone Jose L Lema MD Primary Care Physician Encounter [facility] Date(s): 04/16/20 - 04/23/20 [facility] [address] [place] [address]- [facility] Attending Physician: Lulu MIDDLETON, Bry Obrien Allergies, [...] term) 94 Given 1Admin Note: vis given 05/29/201250873Cheus Note: VIS Tksig3Kcrpb Note: vis given Admin Note: VIS Wpiby9Wijiw Note: VIS Admin Note: VIS 02/08/2008 7Admin [...] each, 11 Refills, Maintenance, 04/23/20 16:52:00 EDT, [facility] #[id number], 1 patch Topically Every week, 154, cm, [...]
--- OUTSIDE RECORDS SUMMARY | 2022-08-27 22:28 | XMS_ITS | Continuity of Care Document ---
:1994 Author Organization [facility] Address [address] [place] [address]- Care Team Providers Name Role Phone Jose L MIDDLETON, Anel Primary Care Physician Encounter [facility] Date(s): 10/21/21 - 11/20/21 [facility] [address] [place] [id number] Allergies, Adverse Reactions, Alerts Substance Reaction Severity [...] term) 94 Given 1Admin Note: vis given 05/29/201285775Tzmak Note: VIS Dpsha1Jrgar Note: vis given Admin Note: VIS Pejct5Eaiqr Note: VIS Admin Note: VIS 02/08/2008 7Admin Note: hx varicella '8Admin Note: as default missing dates doc. Medications hydrOXYzine pamoate 25 mg oral capsule 1 capsule = 25 mg, By Mouth, 4 times a day, PRN for anxiety, # 40 capsule, 0 Refills, Maintenance, 09/25/21 10:24:00 EDT, Capsule, [facility] #[id number], Partial fill upon patient request if the prescription is for a schedule II opioid drug., 15... Start Date: 09/25/21 Status: OrderedLexapro 5 mg oral tablet 1 tablet = 5 mg, By Mouth, Daily, # 30 tablet, 0 Refills, Maintenance, 10/16/21 10:17:00 EST, Tablet, [facility] #58906, Partial fill upon patient request if the prescription is for a schedule II opioid drug., 155, cm, 10/16/21 9:35:00 EST,... Start Date: 10/16/21 Status: Orderedmelatonin 3 mg oral tablet, extended release 1 tablet = 3 mg, By Mouth, Daily at bedtime, PRN as needed for insomnia, # 15 tablet, 0 Refills, Maintenance, 09/25/21 10:24:00 EDT, ER Tablet, [facility] #[id number], Partial fill upon patient request if the prescription is for a schedule II opi... Start Date: 09/25/21 Status: Orderednaproxen 500 mg oral tablet 1 tablet, By Mouth, 2 times a day, PRN NEEDED FOR MILD PAIN, # 60 tablet, 0 Refills, Maintenance,09/25/21 10:27:00 EDT, [id number], 155, cm, 09/25/21 9:35:00 EDT, Height Start [...]
--- OUTSIDE RECORDS SUMMARY | 2022-08-27 22:28 | XMS_ITS | Continuity of Care Document ---
:1994 Author Organization [facility] Address [address] [place] [address]- Care Team Providers Name Role Phone Jose L MIDDLETON, Anel Primary Care Physician Encounter [facility] Date(s): 12/08/20 - 01/07/[address] [address] Allergies, Adverse Reactions, Alerts No Known Medication [...] term) 94 Given 1Admin Note: vis given 05/29/201216674Dfdxi Note: VIS Xbxbg1Sfzow Note: vis given Admin Note: VIS Isbjk5Vayor Note: VIS Admin Note: VIS 02/08/2008 7Admin Note: hx varicella '948Admin Note: as default missing dates doc. Medications Chloraseptic 6 mg-10 mg mucous membrane lozenge 1 lozenge, By Mouth, Every 2 hours, PRN for sore throat, # 18 each, 1 Refills, Maintenance, 07/15/2012:28:00 EDT, Lozenge, [facility] #[id number], 1 lozenge By Mouth Every 2 hours,PRN:for [...]
--- OUTSIDE RECORDS SUMMARY | 2022-08-27 22:28 | XMS_ITS | Continuity of Care Document ---
:1994 Author Organization [facility] Address [address] [place] [address]- Care Team Providers Name Role Phone Jose L Lema MD Primary Care Physician Encounter [facility] Date(s): 08/14/19 - 11/16/19 [facility] [address] [place] [address]- [facility] Attending Physician: Jaelyn Farrell MD Admitting Physician: Jaelyn Farrell MD Referring Physician: Olga Lidia Banks NP Allergies, Adverse Reactions, Alerts No Known Medication [...] term) 94 Given 1Admin Note: vis given 05/29/201268161Rcpeg Note: VIS Fboxg6Rpqco Note: vis given Admin Note: VIS Fldqf3Gmsij Note: VIS Admin Note: VIS 02/08/2008 7Admin [...]
--- OUTSIDE RECORDS SUMMARY | 2022-08-27 22:28 | XMS_ITS | Continuity of Care Document ---
:1994 Author Organization [facility] Address [address] [place] [address]- Care Team Providers Name Role Phone Anel Domingo MD Primary Care Physician Encounter [facility] [place] Date(s): 09/21/21 - 09/22/[address] [address]- Discharge Disposition: A-D/C Home Attending Physician: Zeke Yen MD Admitting Physician: Karlo Oliva MD Referring Physician: Not on Staff, Referring MD Allergies, Adverse Reactions, Alerts Substance Reaction [...] term) 94 Given 1Admin Note: vis given 05/29/201266231Mfkbm Note: VIS Vnupz4Lnhpr Note: vis given Admin Note: VIS Wsdtx7Unynr Note: VIS Admin Note: VIS 02/08/2008 7Admin Note: hx varicella '948Admin Note: as default missing dates doc. Medications naproxen 500 mg oral tablet 1 tablet, By Mouth, 2 times a day, PRN NEEDED FOR MILD PAIN, # 60 tablet, 0 Refills, [facility] #[id number], 155, cm, 04/02/21 13:06:00 EDT, Height Start Date: 08/03/21 Status: Ordered Problem List Condition Effective Dates Status Health Status Informant Benign essential tremor - head stef, Active hand; different than seizures(Confirmed) Learning difficulties(Confirmed) Active Myopia(Confirmed) Active Falls frequently(Confirmed) Active On EEG.(Confirmed) Active Seizure disorder on EEG 03/17/2021, Active daily, focal and generalized; Dr. Mcfarland; patient declines f/u with Dr. Pozo, side effect to tegretol(Confirmed) Vitamin D deficiency(Confirmed) 01/30/14 Active Results Radiology Reports Exam Date Time Procedure Performing Provider Status 09/21/21 7:23 PM Chest Portable Magaly Altman; Auth (Verified) Notes:(Chest Portable) Reason For Exam: Shortness of BreathRESULT: Chest Portable Chest Portable Reason: Shortness of Breath; Clinical Question(s): CHF COMPARISON: 07/12/2020 FINDINGS: LINES AND TUBES: None. LUNGS AND PLEURA: Clear lungs. Normal pulmonary vascularity. No pleural effusion. No pneumothorax. HEART, MEDIASTINUM AND GENEVA: Heart is normal in size. Normal upper mediastinal and hilar contour. BONES AND SOFT TISSUES: No acute abnormality. IMPRESSION: No acute abnormality. WSN: [id number] Ordering Physician: Shireen Queen MD Dictated By: Christa Dallas MD Dictated Date/Time: 09/21/21 7:27 pm Reviewed By: Christa Dallas MD Signed By: Christa Dallas MD Signed Date/Time: 09/21/21 7:27 pm Transcribed By: ERIC Transcribed Date/Time: 09/21/21 7:26 pm Vital Signs Most recent to oldest 1 2 3 [Reference Range]: Oxygen Saturation [94-100 100 % 100 % 100 % %] (09/22/21 10:39 AM) (09/22/21 7:53 AM) (09/22/21 7:00 AM) Pulse Rate [55-90 bpm] 69 bpm 75 bpm 52 bpm (09/22/21 10:39 AM) (09/22/21 7:53 AM) *L* (09/22/21 7:00 A M) Blood Pressure 90/45 mm Hg 106/54 mm Hg 106/54 mm Hg [90-138/55-84 mm Hg] (09/22/21 10:39 AM) (09/22/21 7:53 AM) ( 7:00 AM) Respiratory Rate [16-30 12 br/min 16 br/min 16 br/mi n br/min] *L* (09/22/21 7:53 AM) (09/22/21 7:0 0 AM) (09/22/21 10:39 AM) Temperature [96.8-100.4 97.9 DegF 97.9 DegF 98.2 Deg F DegF] (09/22/21 10:39 AM) (09/22/21 7:00 AM) (09/21/21 6:52 PM) Mode of Delivery (Oxygen) Room air Room air Room a ir (09/22/21 10:39 AM) (09/22/21 7:53 AM) (09/22/21 7:00 AM) Blood pressure sites Arm, left Arm, left Arm, left (09/22/21 10:39 AM) (09/22/21 7:53 AM) (09/22/21 7:00 AM) Temperature Route Oral Oral Oral (09/22/21 10:39 AM) (09/22/21 7:00 AM) (09/21/21 6:52 PM) Social History Social History Type Response Tobacco Use: 4 or less cigarettes(le ss than 1/4 pack)/day in last 30 days. Sex Female
--- OUTSIDE RECORDS SUMMARY | 2022-08-27 22:28 | XMS_ITS | Continuity of Care Document ---
:1994 Author Organization [facility] Address [address] [place] [address]- Care Team Providers Name Role Phone Jose L MIDDLETON, Anel Primary Care Physician [facility]counter [facility] Date(s): 07/08/22 - 08/07/[address] [address] Allergies, Adverse Reactions, Alerts Substance Reaction [...] term) 94 Given 1Admin Note: vis given 05/29/201278749Surns Note: VIS Godzz5Orxkc Note: vis given Admin Note: VIS Tejuk9Iwwdx Note: VIS Admin Note: VIS 02/08/2008 7Admin Note: hx varicella '948Admin Note: as default missing dates doc. Medications Apri 0.15 mg-0.03 mg oral tablet 1 tablet, By Mouth, Daily, # 84 tablet, 0 Refills, Maintenance, 07/21/22 22:20:00 EDT, Tablet, [facility] #[id number], Partial fill upon patient request if the prescription is for a schedule II opioid drug., 1 tablet By Mouth Daily, 155, cm, 04/28... Start Date: 07/21/22 Status: Orderedfamotidine 20 mg oral tablet 20 mg, 1, tablet, By Mouth, 2 times a day, PRN, # 60 tablet, Refills 0, Tot. Refills 0, Maintenance,Dyspepsia, 07/09/22 13:05:00 EDT, Route to Pharmacy Electronically, [facility] #[id number], Partial fill upon patient request if the prescription... Start Date: 07/09/22 Status: OrderedlevETIRAcetam 500 mg oral tablet 1 tablet = 500 mg, By Mouth, 2 times a day, # 60 tablet, 5 Refills, Maintenance, 04/23/22 9:29:00 EDT, Tablet, [facility] #[id number], Partial fill upon patient request if the [...] Team PersonnelName: Jose L MIDDLETON, Anel Address: [address] [place] [address]
--- OUTSIDE RECORDS SUMMARY | 2022-08-27 22:28 | XMS_ITS | Continuity of Care Document ---
:1994 Author Organization [facility] Address [address] [place] [address]- Care Team Providers Name Role Phone Jose L MIDDLETON, Anel Primary Care Physician Encounter [facility] [place] Date(s): 12/02/20 - 01/01/21 [facility] [address] [place] [address] Allergies, Adverse Reactions, Alerts No Known Medication [...] term) 94 Given 1Admin Note: vis given 05/29/201226485Ggfhs Note: VIS Llhfa8Flvtr Note: vis given Admin Note: VIS Ofool3Esloj Note: VIS Admin Note: VIS 02/08/2008 7Admin Note: hx varicella '948Admin Note: as default missing dates doc. Medications Chloraseptic 6 mg-10 mg mucous membrane lozenge 1 lozenge, By Mouth, Every 2 hours, PRN for sore throat, # 18 each, 1 Refills, Maintenance, 07/15/2012:28:00 EDT, Lozenge, [facility] #[id number], 1 lozenge By Mouth Every 2 hours,PRN:for [...]
--- OUTSIDE RECORDS SUMMARY | 2022-08-27 22:28 | XMS_ITS | Continuity of Care Document ---
:1994 Author Organization [facility] Address [address] [place] [address]- Care Team Providers Name Role Phone Jose L Lema MD Primary Care Physician [place] [facility] [place] 04[place]23[place]20 - 04/30/20 [facility] [address] [place] [address] [facility] Attending Physician: Chelle MIDDLETON, Estefanía Referring Physician: Jose L Lema MD Allergies, [...] term) 94 Given 1Admin Note: vis given 05/29/201220951Ubryx Note: VIS Tqoeg6Kuxbi Note: vis given Admin Note: VIS Yabau1Ehyvr Note: VIS Admin Note: VIS 02/08/2008 7Admin [...] each, 11 Refills, Maintenance, 04/23/20 16:52:00 EDT, [facility] #[id number], 1 patch Topically Every week, 154, cm, [...]
--- OUTSIDE RECORDS SUMMARY | 2022-08-27 22:28 | XMS_ITS | Continuity of Care Document ---
:1994 Author Organization [facility] Address [address] [place] [address]- Care Team Providers Name Role Phone Anel Domingo MD Primary Care Physician [place] [facility] [place]14[place]20 - 08/13/20 [facility] [address] [place] [address] [facility] Allergies, Adverse Reactions, Alerts No Known Medication [...] term) 94 Given 1Admin Note: vis given 05/29/201228923Dfbiz Note: VIS Qkvrw5Gundl Note: vis given Admin Note: VIS Uzcdw8Bhryr Note: VIS Admin Note: VIS 02/08/2008 7Admin Note: hx varicella '948Admin Note: as default missing dates doc. Medications Chloraseptic 6 mg-10 mg mucous membrane lozenge 1 lozenge, By Mouth, Every 2 hours, PRN for sore throat, # 18 each, 1 Refills, Maintenance, 07/15/2012:28:00 EDT, Lozenge, [facility] #[id number], 1 lozenge By Mouth Every 2 hours,PRN:for [...]
--- OUTSIDE RECORDS SUMMARY | 2022-08-27 22:28 | XMS_ITS | Continuity of Care Document ---
:1994 Author Organization [facility] Address [address] [place] [address]- Care Team Providers Name Role Phone Jose L Lema MD Primary Care Physician [facility]counter [facility] Date(s): 11/27/19 - 12/07/[address] [address]- [facility] Attending Physician: Mcao Torres Admitting Physician: Maco Torres Referring Physician: AdmMaco street Allergies, Adverse Reactions, Alerts No Known Medication [...] term) 94 Given 1Admin Note: vis given 05/29/201279911Zkpap Note: VIS Ozede7Xutav Note: vis given Admin Note: VIS Ybsnj7Dvvha Note: VIS Admin Note: VIS 02/08/2008 7Admin [...]
--- OUTSIDE RECORDS SUMMARY | 2022-08-27 22:28 | XMS_ITS | Continuity of Care Document ---
:1994 Author Organization [facility] Address [address] [place] [address]- Care Team Providers Name Role Phone Jose L MIDDLETON, Anel Primary Care Physician [facility]counter [facility] Date(s): 10/30/21 - 11/29/[address] [address] Attending Physician: Maco Torres Admitting Physician: Maco Torres Referring Physician: Admtr, Maco Allergies, Adverse Reactions, Alerts Substance Reaction Severity [...] term) 94 Given 1Admin Note: vis given 05/29/201208739Abxrf Note: VIS Ihrxj7Nikww Note: vis given Admin Note: VIS Eetcq8Ukkka Note: VIS Admin Note: VIS 02/08/2008 7Admin Note: hx varicella '948Admin Note: as default missing dates doc. Medications hydrOXYzine pamoate 25 mg oral capsule 1 capsule = 25 mg, By Mouth, 4 times a day, PRN for anxiety, # 40 capsule, 0 Refills, Maintenance, 09/25/21 10:24:00 EDT, Capsule, [facility] #[id number], Partial fill upon patient request if the prescription is for a schedule II opioid drug., 15... Start Date: 09/25/21 Status: OrderedLexapro 5 mg oral tablet 1 tablet = 5 mg, By Mouth, Daily, # 30 tablet, 0 Refills, Maintenance, 10/16/21 10:17:00 EST, Tablet, [facility] #[id number], Partial fill upon patient request if the prescription is for a schedule II opioid drug., 155, cm, 10/16/21 9:35:00 EST,... Start Date: 10/16/21 Status: Orderedmelatonin 3 mg oral tablet, extended release 1 tablet = 3 mg, By Mouth, Daily at bedtime, PRN as needed for insomnia, # 15 tablet, 0 Refills, Maintenance, 09/25/21 10:24:00 EDT, ER Tablet, [facility] #[id number], Partial fill upon patient request if the prescription is for a schedule II opi... Start Date: 09/25/21 Status: Orderednaproxen 500 mg oral tablet 1 tablet, By Mouth, 2 times a day, PRN NEEDED FOR MILD PAIN, # 60 tablet, 0 Refills, Maintenance,09/25/21 10:27:00 EDT, [facility] #[id number], 155, cm, 09/25/21 9:35:00 EDT, Height Start [...]
--- OUTSIDE RECORDS SUMMARY | 2022-08-27 22:28 | XMS_ITS | Continuity of Care Document ---
:1995 Author Organization [facility] Address [address] [place] [address]- Care Team Providers Name Role Phone Anel Domingo MD Primary Care Physician [place] [facility]20 - 07/12/[address] [address]- [facility] Encounter Diagnosis Viral illness (Final) - 07/12/20 Discharge Disposition: A-D/C Home Attending Physician: Miguel Angel Cullen MD Admitting Physician: Miguel Angel Cullen MD Referring Physician: Not on Staff, Referring [...] term) 94 Given 1Admin Note: vis given 05/29/201261121Midmq Note: VIS [id number] Note: vis given Admin Note: VIS Itasp4Ttiie Note: VIS Admin Note: VIS 02/08/2008 7Admin Note: hx varicella '948Admin Note: as default missing dates doc. Medications amoxicillin 875 mg oral tablet 1 tablet = 875 mg, By Mouth, 2 times a day, for 5 days, # 10 tablet, 0 Refills, Acute 07/17/20 0:41:00 EDT, 07/12/20 0:41:00 EDT, Tablet, [facility] #[id number], 155, cm, 06/10/20 8:28:00 EDT, Height, 77, kg, 03/03/19 4:10:00 EDT, Dry Weight Start Date: 07/12/20 Stop Date: 07/17/20 Status: Orderednaproxen 500 mg oral tablet 1 tablet = [...] each, 11 Refills, Maintenance, 04/23/20 16:52:00 EDT, [facility] #[id number], 1 patch Topically Every week, 154, cm, 04/23/20 16:13:00 EDT, Height, 77, kg, 03/03/19 4:10:00 EDT, Dry Weight Start Date: 04/23/20 Status: Ordered Problem List Condition Effective Dates Status Health Status Informant Learning difficulties(Confirmed) Active Vitamin D deficiency(Confirmed) 01/30/14 Active Results Radiology Reports Exam Date Time Procedure Performing Provider Status 07/12/20 12:52 AM Chest Portable Malina Slaughter (Verified ) Notes:(Chest Portable) Reason For Exam: CoughRESULT: Chest Portable Chest Portable INDICATION / CLINICAL QUESTION: Hx of Present Illness: pt complains of a dry cough for 4 days; Reason: Cough; Clinical Question(s): Pneumonia COMPARISON: Most recent 03/09/2019 FINDINGS: LINES AND TUBES: None. LUNGS AND PLEURA: Clear lungs. Normal pulmonary vascularity. No pleural effusion. No pneumothorax. HEART, MEDIASTINUM AND GENEVA: Normal. BONES AND SOFT TISSUES: Normal. IMPRESSION: Normal. WSN: [id number] Ordering Physician: Jayant Izaguirre Dictated By: Frankie Munson MD Dictated Date/Time: 07/12/20 7:59 am Reviewed By: Frankie Munson MD Signed By: Frankie Munson MD Signed Date/Time: 07/12/20 7:59 am Transcribed By: ERIC Transcribed Date/Time: 07/12/20 7:57 am Vital Signs Most recent to oldest [Reference Range]: 1 2 Oxygen Saturation [94-100 %] 100 % 100 % (07/11/20 10:36 PM) (07/11/20 7:52 PM) Pulse Rate [55-90 bpm] 67 bpm 85 bpm (07/11/20 10:36 PM) (07/11/20 7:52 PM) Blood Pressure [90-138/55-84 mm Hg] 125/60 mm Hg 112/ 52 mm Hg (07/11/20 10:36 PM) (07/11/20 7:52 PM) Respiratory Rate [16-30 br/min] 16 br/min 16 br/mi n (07/11/20 10:36 PM) (07/11/20 7:52 PM) Temperature [96.8-100.4 DegF] 98 DegF 98.3 DegF (07/11/20 10:36 PM) (07/11/20 7:52 PM) Mode of Delivery (Oxygen) Room air Room air (07/11/20 10:36 PM) (07/11/20 7:52 PM) Blood pressure sites Arm, left Arm, left (07/11/20 10:36 PM) (07/11/20 7:52 PM) Temperature Route Oral Oral (07/11/20 10:36 PM) (07/11/20 7:52 PM) Social History Social History Type Response Tobacco Use: 4 or less cigarettes(le ss than 1/4 pack)/day in last 30 days. Sex Female
--- OUTSIDE RECORDS SUMMARY | 2022-08-27 22:28 | XMS_ITS | Continuity of Care Document ---
:1995 Author Organization [facility] Address [address] [place] [id number]- Care Team Providers Name Role Phone Jose L Lema MD Primary Care Physician [facility]counter [facility] Date(s): 04/23/20 - 05/23/20 [facility] [address] [place] [address]- [facility] Attending Physician: Maco Torres Admitting Physician: Maco [...] term) 94 Given 1Admin Note: vis given 05/29/201286635Jrnwq Note: VIS [id number] Note: vis given Admin Note: VIS [id number] Note: VIS Admin Note: VIS 02/08/2008 7Admin [...] each, 11 Refills, Maintenance, 04/23/20 16:52:00 EDT, [facility] #[id number], 1 patch Topically Every week, 154, cm, [...]
--- OUTSIDE RECORDS SUMMARY | 2022-08-27 22:28 | XMS_ITS | Continuity of Care Document ---
:1995 Author Organization [facility] Address [address] [place] [address]- Care Team Providers Name Role Phone Jose L Lema MD Primary Care Physician Encounter [facility] Date(s): 04/15/20 - 04/22/20 [facility] [address] [place] [id number]- [facility] Attending Physician: Jessie Peters NP Allergies, Adverse Reactions, Alerts No Known [...] term) 94 Given 1Admin Note: vis given 05/29/201200505Yhkil Note: VIS [id number] Note: vis given Admin Note: VIS [id number] Note: VIS Admin Note: VIS 02/08/2008 7Admin Note: hx varicella '8Admin Note: as default missing dates doc. Medications naproxen 500 mg oral tablet 1 tablet = 500 mg, By Mouth, 2 times a day, PRN for pain, # 20 tablet, 0 Refills, Maintenance, 04/16/20 16:17:00 EDT, Tablet, [facility] #[id number], 154, cm, 04/16/20 14:04:00 EDT, Height, 77, kg, 03/03/19 4:10:00 EDT, Dry Weight Start Date: 04/16/20 Status: Orderednaproxen 500 mg oral tablet 1 [...] 4 Refills, Maintenance, 02/01/20 13:19:00 EST, Tablet, [facility] #[id number], 1 tablet By Mouth Daily, 154, cm, [...]
--- OUTSIDE RECORDS SUMMARY | 2022-08-27 22:28 | XMS_ITS | Continuity of Care Document ---
:1995 Author Organization [facility] Address [address] [place] [address]- Care Team Providers Name Role Phone Jose L MIDDLETON, Anel Primary Care Physician Encounter [facility] Date(s): 11/05/20 - 12/07/20 [facility] [address] [place] [id number]- Attending Physician: Bry Lawson MD Admitting Physician: [...] term) 94 Given 1Admin Note: vis given 05/29/201247409Trhke Note: VIS [id number] Note: vis given Admin Note: VIS [id number] Note: VIS Admin Note: VIS 02/08/2008 7Admin Note: hx varicella '8Admin Note: as default missing dates doc. Medications Chloraseptic 6 mg-10 mg mucous membrane lozenge 1 lozenge, By Mouth, Every 2 hours, PRN for sore throat, # 18 each, 1 Refills, Maintenance, 07/15/2012:28:00 EDT, [facility], [id number], 1 lozenge By Mouth Every 2 hours,PRN:for [...]
--- OUTSIDE RECORDS SUMMARY | 2022-08-27 22:28 | XMS_ITS | Continuity of Care Document ---
:1995 Author Organization [facility] Address [address] [place] [address]- Care Team Providers Name Role Phone Jose L MIDDLETON, Anel Primary Care Physician [place] [facility] 05/03[place]22 - 06/02/22 [facility] [address] [place] [id number] Allergies, Adverse Reactions, Alerts Substance [...] term) 94 Given 1Admin Note: vis given 05/29/201238424Tlbvn Note: VIS [id number] Note: vis given Admin Note: VIS Ohysl2Qkyag Note: VIS Admin Note: VIS 02/08/2008 7Admin Note: hx varicella '948Admin Note: as default missing dates doc. Medications famotidine 20 mg oral tablet 20 mg, 1, tablet, By Mouth, 2 times a day, PRN, # 60 tablet, Refills 0, Tot. Refills 0, Maintenance,Dyspepsia, 05/12/22 15:04:00 EDT, Route to Pharmacy Electronically, [facility] #[id number], Partial fill upon patient request if the prescription... Start Date: 05/12/22 Status: OrderedlevETIRAcetam 500 mg oral tablet 1 tablet = 500 mg, By Mouth, 2 times a day, # 60 tablet, 5 Refills, Maintenance, 04/23/22 9:29:00 EDT, Tablet, [facility] #[id number], Partial fill upon patient request if the [...]
--- OUTSIDE RECORDS SUMMARY | 2022-08-27 22:28 | XMS_ITS | Continuity of Care Document ---
:1995 Author Organization [facility] Address [address] [place] [address]- Care Team Providers Name Role Phone Jose L MIDDLETON, Anel Primary Care Physician [facility]counter [facility] Date(s): 04/02/21 - 05/02/21 [facility] [address] [place] [id number] Attending Physician: Maco Torres [...] term) 94 Given 1Admin Note: vis given 05/29/201280368Zwlst Note: VIS [id number] Note: vis given Admin Note: VIS [id number] Note: VIS Admin Note: VIS 02/08/2008 7Admin Note: hx varicella '948Admin Note: as default missing dates doc. Medications Chloraseptic 6 mg-10 mg mucous membrane lozenge 1 lozenge, By Mouth, Every 2 hours, PRN for sore throat, # 18 each, 1 Refills, Maintenance, 07/15/2012:28:00 EDT, Lozenge, [facility] #[id number], 1 lozenge By Mouth Every 2 hours,PRN:for [...] Refills, Maintenance, 04/02/21 13:41:00 EDT, ER Tablet, [facility][id number], Partial fill upon patient requestif the prescription [...]
--- OUTSIDE RECORDS SUMMARY | 2022-08-27 22:28 | XMS_ITS | Continuity of Care Document ---
:1995 Author Organization [facility] Address [address] [place] [address]- Care Team Providers Name Role Phone Jose L Lema MD Primary Care Physician Encounter [facility] Date(s): 10/23/19 - 12/27/[address] [address]- [facility] Attending Physician: Not on Staff, Attending [...] term) 94 Given 1Admin Note: vis given 05/29/201230186Buhfz Note: VIS [id number] Note: vis given Admin Note: VIS [id number] Note: VIS Admin Note: VIS 02/08/2008 7Admin [...]
--- OUTSIDE RECORDS SUMMARY | 2022-08-27 22:28 | XMS_ITS | Continuity of Care Document ---
:1995 Author Organization [facility] Address [address] [place] [address]- Care Team Providers Name Role Phone Jose L MIDDLETON, Anel Primary Care Physician Encounter [facility] Date(s): 09/05/20 - 10/05/[address] [address] Attending Physician: Maco Torres Admitting Physician: [...] term) 94 Given 1Admin Note: vis given 05/29/201232056Fbtgs Note: VIS Lzdce5Aukjy Note: vis given Admin Note: VIS [id number] Note: VIS Admin Note: VIS 02/08/2008 7Admin Note: hx varicella '948Admin Note: as default missing dates doc. Medications Chloraseptic 6 mg-10 mg mucous membrane lozenge 1 lozenge, By Mouth, Every 2 hours, PRN for sore throat, # 18 each, 1 Refills, Maintenance, 07/15/2012:28:00 EDT, Lozenge, [facility] #[id number], 1 lozenge By Mouth Every 2 hours,PRN:for [...]
--- NOTE | 2022-08-27 22:56 | ED_ITS ---
HPI - General Adult General Chief complaint: General Medical Stated complaint: Rash/?/Vaginal pain Source: patient Mode of arrival: ambulatory Limitations: no limitations History of Present Illness HPI narrative: 27-year-old female presents with 1 week of upper respiratory symptoms, breast soreness, nausea, congestion, abdominal pain, and dysuria. Patient states that when she took test at home she was unable to understand the results. Patient would like repeat test at this time. Onset (ago): week(s) (1) Location: abdomen Radiation: non-radiation Severity: mild Quality: burning Pain Consistency: intermittent Relieving factors: none Exacerbating factors: other (Urination) Associated symptoms: denies other symptoms Related Data Home Medications Medication Instructions Recorded Confirmed carbamazepine 200 mg 200 mg PO BID 04/19/22 tablet,extended release,12 hr (Tegretol XR) docusate sodium 100 mg capsule 100 mg PO BID 04/19/22 (Colace) ferrous sulfate 325 mg (65 mg 325 mg PO BID 04/19/22 iron) tablet naproxen 250 mg tablet 250 mg PO BID PRN 04/19/22 Previous Rx's Medication Instructions Recorded ascorbic acid (vitamin C) 500 mg See Rx Instructions .Route 04/20/22 chewable tablet (Vitamin C) .COMPLEX #60 tabs nitrofurantoin 100 mg PO Q12H 7 days #14 caps 08/28/22 monohydrate/macrocrystals 100 mg capsule (Macrobid) Allergies Allergy/AdvReac Type Severity Reaction Status Date / Time No Known Allergies Allergy Verified 06/17/21 22:39 Review of Systems Review of Systems: Constitutional: No Fever, No Chills ENT/Mouth: No Ear Pain, No Hoarseness, No sore throat Eyes: No Eye Pain, No Swelling, No Redness, No Foreign Body Cardiovascular: No Chest Pain, No SOB Respiratory: No Cough, No Dyspnea Gastrointestinal: Positive Nausea, No Vomiting, No Diarrhea, No abdominal Pain Genitourinary: Positive breast soreness, Positive Dysuria, No Hematuria Musculoskeletal: No joint pain, No Myalgias, No Joint Swelling Skin: No Skin lacerations, No rash Neuro: No Weakness, No Numbness, No Paresthesias, No Loss of Consciousness, No Dizziness, No Headache Psych: No Anxiety/Panic, No Depression Heme/Lymph: no easy bruising, no Lymphadenopathy Endocrine: No Polyuria, No Polydipsia Yes all other systems are reviewed and are negative [facility] Past Medical History Attestation statement: The following information was validated with the patient. Source: old records reviewed Medical History No known health problems Seizure disorder Surgical History H/O section Social History Social History Patient Tobacco Use Status: Never used Tobacco Advance Directives: No Advance Directives Information Provided: No Physical Exam ED Vital Signs: Vital Signs - 24 hr 08/27/22 20:24 08/27/22 21:37 08/27/22 22:20 Temperature 98.9 F 98.2 F Pulse Rate 67 75 66 Respiratory Rate 18 18 15 Blood Pressure 106/34 L 113/47 L 108/48 L Pulse Oximetry 98 100 100 Oxygen Delivery Method Room Air Room Air 08/28/22 00:14 Temperature Pulse Rate 68 Respiratory Rate 18 Blood Pressure 123/73 Pulse Oximetry 100 Oxygen Delivery Method Room Air BMI result Body Mass Index 32.3 Appearance: Alert. Oriented X3. No acute distress. Eyes: Pupils equal, round and reactive to light. ENT: Pharynx normal. Neck: Normal inspection. Neck supple. CVS: Normal heart rate and rhythm. Pulses normal. Respiratory: No respiratory distress. Breath sounds normal. Abdomen: Soft and nontender. Skin: Skin warm and dry. Normal skin color. Normal skin turgor. Extremities: No lower extremity edema. Gait well-balanced well coordinated. Neuro: No motor deficit. No sensory deficit. Cranial nerves 2-12 intact. Course Course Course Narrative: 27-year-old female presents for evaluation for symptoms consistent with . States that she has sore breasts, is nauseous, and has dysuria. She did take a test earlier today and stated that she was unable to read the results accurately. She would like a repeat test. This was done while patient was in the emergency department waiting room, her lab values were negative, urinalysis positive for heme and leukocyte esterase. Urinalysis was negative for . I did discuss her labs with the patient, patient states that she does not believe the urine test and would like blood test. HCG is negative. Will treat patient for UTI. Patient verbalized understanding of and agrees to plan of care discharge home. Verbalized understanding of signs and symptoms indicating need for emergent intervention. Medical Decision Making Differential Diagnosis Differential Diagnosis: Viral syndrome, UTI, Medical Records Medical records reviewed: Yes I reviewed the patient's medical records. Lab Data Lab results reviewed: Yes I reviewed the patient's lab results. Result diagrams: 08/27/22 20:30 08/27/22 20:30 Labs: Lab Results 08/27/22 08/27/22 08/27/22 Range/Units 20:28 20:30 20:30 WBC 9.9 (4.8-10.8) X10*3/uL RBC 4.27 (4.20-5.50) X10*6/uL Hgb 12.4 (12.0-16.0) g/dl Hct 37.8 (37.0-47.0) % MCV 88.5 (80.0-98.0) fL MCH 29.0 (27.0-33.0) pg MCHC 32.8 (31.0-35.0) g/dl RDW 13.4 (11.0-16.0) % Plt Count 273 (160-400) X10*3/uL MPV 10.2 (9.4-12.3) fL Immature Gran % (Auto) 0.4 (0.0-0.4) % Neut % (Auto) 62.6 (45-73) % Lymph % (Auto) 29.4 (20-40) % [place] % (Auto) 5.7 (2-11) % Eos % (Auto) 1.3 (0-4) % Baso % (Auto) 0.6 (0-2) % Lymph # (Auto) 2.9 (1.2-4.9) X10*3/uL [place] # (Auto) 0.6 (0.1-1.2) X10*3/uL Eos # (Auto) 0.1 (0.0-0.4) X10*3/uL Baso # (Auto) 0.1 (0.0-0.2) X10*3/uL Abs Immat Gran (auto) 0.04 H (0.00-0.03) X10*3/uL Absolute Neuts (auto) 6.2 (2.0-8.3) x10*3/uL Absolute Nucleated RBC 0.000 (0.0-0.012) X10*3/uL Nucleated RBC % (auto) 0.0 (0.0-0.2) /100WBC Sodium 140 (135-145) mmol/L Potassium 3.8 (3.3-5.1) mmol/L Chloride 106 (96-108) mmol/L Carbon Dioxide 22 (22-29) mmol/L Anion Gap 16 (12-20) BUN 17 H (9-16) mg/dL Creatinine 0.81 (0.5-1.4) mg/dL Estim Creat Clear Calc 97.4 Estimated GFR > 60 Random Glucose 90 (60-115) mg/dL Calcium 9.3 (8.4-10.2) mg/dL Total Bilirubin 1.2 H (0.0-1.0) mg/dL Direct Bilirubin 0.4 (0.0-0.5) mg/dL AST 16 (5-31) U/L ALT 14 (0-31) U/L Alkaline Phosphatase 81 (39-117) U/L Total Protein 7.5 (6.5-8.0) g/dL Albumin 4.5 (3.5-5.0) g/dL Lipase 25 (8-78) U/L Beta HCG, Quant < 2 mIU/mL Urine Color Urine Appearance Urine pH (5.0-9.0) Ur Specific Kempner (1.005-1.025) Urine Protein (Neg-Trace) mg/dL Urine Glucose (UA) (Negative) mg/dL Urine Ketones (Negative) mg/dL Urine Blood (Negative) Urine Nitrite (Negative) Ur Leukocyte Esterase (Negative) Urine RBC (0-2) /HPF Urine WBC (0-5) /HPF Ur Squamous Epith Cells (0-2) /HPF Urine Bacteria (None Seen) Hyaline Casts (0-2) /LPF Urine Test (NEGATIVE) COVID-19 (HOSSEIN) Negative (Negative) COVID-19 Clin Com See Note 08/27/22 08/27/22 Range/Units 21:35 21:35 WBC (4.8-10.8) X10*3/uL RBC (4.20-5.50) X10*6/uL Hgb (12.0-16.0) g/dl Hct (37.0-47.0) % MCV (80.0-98.0) fL MCH (27.0-33.0) pg MCHC (31.0-35.0) g/dl RDW (11.0-16.0) % Plt Count (160-400) X10*3/uL MPV (9.4-12.3) fL Immature Gran % (Auto) (0.0-0.4) % Neut % (Auto) (45-73) % Lymph % (Auto) (20-40) % [place] % (Auto) (2-11) % Eos % (Auto) (0-4) % Baso % (Auto) (0-2) % Lymph # (Auto) (1.2-4.9) X10*3/uL [place] # (Auto) (0.1-1.2) X10*3/uL Eos # (Auto) (0.0-0.4) X10*3/uL Baso # (Auto) (0.0-0.2) X10*3/uL Abs Immat Gran (auto) (0.00-0.03) X10*3/uL Absolute Neuts (auto) (2.0-8.3) x10*3/uL Absolute Nucleated RBC (0.0-0.012) X10*3/uL Nucleated RBC % (auto) (0.0-0.2) /100WBC Sodium (135-145) mmol/L Potassium (3.3-5.1) mmol/L Chloride (96-108) mmol/L Carbon Dioxide (22-29) mmol/L Anion Gap (12-20) BUN (9-16) mg/dL Creatinine (0.5-1.4) mg/dL Estim Creat Clear Calc Estimated GFR Random Glucose (60-115) mg/dL Calcium (8.4-10.2) mg/dL Total Bilirubin (0.0-1.0) mg/dL Direct Bilirubin (0.0-0.5) mg/dL AST (5-31) U/L ALT (0-31) U/L Alkaline Phosphatase (39-117) U/L Total Protein (6.5-8.0) g/dL Albumin (3.5-5.0) g/dL Lipase (8-78) U/L Beta HCG, Quant mIU/mL Urine Color Yellow Urine Appearance Clear Urine pH 6.5 (5.0-9.0) Ur Specific Kempner 1.025 (1.005-1.025) Urine Protein Negative (Neg-Trace) mg/dL Urine Glucose (UA) Negative (Negative) mg/dL Urine Ketones Negative (Negative) mg/dL Urine Blood Trace H (Negative) Urine Nitrite Negative (Negative) Ur Leukocyte Esterase Small (1+) H (Negative) Urine RBC 3-5 H (0-2) /HPF Urine WBC 0-5 (0-5) /HPF Ur Squamous Epith Cells 3-5 (0-2) /HPF Urine Bacteria Trace (None Seen) Hyaline Casts 0-2 (0-2) /LPF Urine Test NEGATIVE (NEGATIVE) COVID-19 (HOSSEIN) (Negative) COVID-19 Clin Com Discharge Plan Discharge Clinical Impression: UTI (urinary tract infection) Patient Disposition: Home, Self-Care Instructions: Urinary Tract Infection in Women (ED) Additional Instructions: You were evaluated for urinary symptoms, sore breasts and suspicion of . Your urine and blood tests are negative. Urinalysis positive for UTI. Please take Macrobid twice a day for the next 7 days. Drink plenty of fluids Thank you for choosing this emergency department for evaluation. Please follow-up with primary care physician as needed. Return to the emergency department for any new, concerning, or worsening symptoms. Prescriptions: New nitrofurantoin monohyd/m-cryst [Macrobid] 100 mg capsule 100 mg PO Q12H 7 Days Qty: 14 0RF Rx Instructions: must administer with a meal/food No Action docusate sodium [Colace] 100 mg capsule 100 mg PO BID ferrous sulfate 325 mg (65 mg iron) tablet 325 mg PO BID naproxen 250 mg tablet 250 mg PO BID PRN carbamazepine [Tegretol XR] 200 mg tablet extended release 12 hr 200 mg PO BID ascorbic acid (vitamin C) [Vitamin C] 500 mg tablet,chewable See Rx Instructions .ROUTE .COMPLEX Qty: 60 3RF Dose Instruction: CHEW 1 TABLET BY MOUTH TWICE DAILY TAKE WITH FERROUS SULFATE Rx Instructions: CHEW 1 TABLET BY MOUTH TWICE DAILY TAKE WITH FERROUS SULFATE Interventions: ED Discharge Assessment Last Done: 08/28/22 00:15 Discharge Date/Time: 08/28/22 00:16
[2022-08-27] MEDS: Nitrofurantoin Monohyd/M-Cryst 100 MG CAPSULE PO (23:09)
[2022-08-27 23:19] LABS: HCG Quantitative < 2 mIU/mL
[2022-08-28 00:14] VITALS: BP 123/73; PULSE 68; RESP 18; O2SAT 100
== END 2022-08-28 00:16 | disposition home or self-care (01) ==
PROVIDERS: Nurse Practitioner Family; Emergency Provider Emergency Medicine
DX: N39.0 Urinary tract infection, site not specified (principal); R21 Rash and other nonspecific skin eruption; Z79.899 Other long term (current) drug therapy; Z20.822 Contact with and (suspected) exposure to COVID-19
CPT/HCPCS: 36415; 80053; 81001; 81025; 82248; 83690; 84702; 85025; 87086; 87635; 99283

== ENCOUNTER 2022-09-11 17:36 | Emergency (ER) | payer OTHER, SELFPAY ==
--- NOTE | ~2022-09-11 | XR_ITS ---
EXAMINATION: XR hand wrist RT CLINICAL INFORMATION: Reason for Exam glass injury/pain on rom COMPARISON: None. TECHNIQUE: Four views of the hand and wrist XR/XR hand wrist RT FINDINGS/IMPRESSION: * No acute fracture or dislocation. * Joint spaces are maintained without significant degenerative change. * No soft tissue abnormality or radiopaque retained foreign body.
[2022-09-11 17:38] VITALS: BP 105/48; PULSE 76; RESP 18; TEMP 36.8; O2SAT 98; BMI 24.5
--- NOTE | 2022-09-11 18:17 | ED.WOUNDLAC ---
HPI - Wound/Laceration General Chief Complaint: Wound/Laceration Stated Complaint: right hand and wrist laceration Time Seen by Provider: 09/11/22 18:04 Source: patient Mode of arrival: ambulatory Limitations: no limitations History of Present Illness HPI narrative: 27-year-old female who has previously healthy who is right-hand dominant presents with right hand laceration. Patient tells she was cleaning her bathroom with a mirror fell off the wall striking her right hand and breaking. She reports lacerations over the right hand. She also reports pain with range of motion. No sensation change. Patient reports previous injury to the right 5th digit with difficulty with range of motion. Tetanus status not up to date Related Data Home Medications Medication Instructions Recorded Confirmed carbamazepine 200 mg 200 mg PO BID 04/19/22 tablet,extended release,12 hr (Tegretol XR) docusate sodium 100 mg capsule 100 mg PO BID 04/19/22 (Colace) ferrous sulfate 325 mg (65 mg 325 mg PO BID 04/19/22 iron) tablet naproxen 250 mg tablet 250 mg PO BID PRN 04/19/22 Previous Rx's Medication Instructions Recorded ascorbic acid (vitamin C) 500 mg See Rx Instructions .Route 04/20/22 chewable tablet (Vitamin C) .COMPLEX #60 tabs nitrofurantoin 100 mg PO Q12H 7 days #14 caps 08/28/22 monohydrate/macrocrystals 100 mg capsule (Macrobid) Allergies Allergy/AdvReac Type Severity Reaction Status Date / Time No Known Allergies Allergy Verified 06/17/21 22:39 Review of Systems Review of Systems: Yes all other systems are reviewed and are negative Constitutional: Constitutional: Reports no additional constitutional complaints, Denies body ache(s), Denies chills, Denies fever(s), Denies headache(s) and Denies weakness Eyes: Eyes: Reports no additional eye complaints and Denies change in vision ENT: Reports system reviewed and no additional complaints, except as documented, Denies dizziness, Denies headache(s), Denies nasal congestion, Denies nasal discharge and Denies neck pain Cardiovascular: Cardiovascular: Reports no additional cardiovascular complaints, Denies chest pain, Denies leg edema and Denies dyspnea Respiratory: Respiratory: Reports no additional respiratory complaints, Denies cough and Denies dyspnea Gastrointestinal: Gastrointestinal: Reports no additional gastrointestinal complaints, Denies abdominal pain, Denies diarrhea, Denies nausea and Denies vomiting Genitourinary: Genitourinary: Reports no additional female genitourinary complaints and Denies urinary incontinence Musculoskeletal: Musculoskeletal: Reports no additional musculoskeletal complaints, Denies back pain, Denies arthralgias, Denies joint swelling, Denies neck pain, Denies numbness and Denies tingling Integumentary/Breasts: Skin/Breast: Reports system reviewed and no additional complaints, except as docu, Denies rash and Reports wounds Neurologic: Reports system reviewed and no additional complaints, except as documented, Denies Abnormal speech present, Denies dizziness, Denies headache(s), Denies numbness, Denies tingling and Denies weakness PMFSH Past Medical History Attestation statement: The following information was validated with the patient. Source: old records reviewed and nursing notes reviewed Medical History No known health problems Seizure disorder Surgical History H/O section Social History Social History Patient Tobacco Use Status: Never used Tobacco Advance Directives: No Advance Directives Information Provided: No Physical Exam Vital Signs: Vital Signs: Last Vital Signs Temp 98.3 F 09/11/22 17:38 Pulse 76 09/11/22 17:38 Resp 18 09/11/22 17:38 BP 105/48 L 09/11/22 17:38 Pulse Ox 98 09/11/22 17:38 O2 Del Method 09/11/22 17:38 BMI result Body Mass Index 24.5 Const: General: cooperative, healthy appearing, comfortable and no acute distress Orientation/consciousness: patient oriented x3 Limitations: no limitations HEENT: Head: Yes normal to inspection Ears: hearing grossly normal bilaterally General nose exam: Normal external nose present Face and sinus: Yes normal facial exam Mouth: Normal oral and palatal mucosa present Throat: Yes posterior oropharynx normal Eyes: General: appearance normal, both eyes and all related structures Pupils: Equal, round and reactive pupils present Neck: Neck: Yes normal visual inspection Chest: Chest palpation & inspection: normal inspection of the chest Resp: Effort & Inspection: normal respiratory effort Auscultation: clear to auscultation bilaterally Cardio: Rate: regular rate Rhythm: regular rhythm Peripheral pulses: Peripheral pulses 2+ throughout GI: Inspection: Yes normal to inspection Palpation (GI): Soft to palpation and nontender Auscultation: normal bowel sounds Back/Spine/Pelvis: Thoracic/Lumbar Spine: thoracic and lumbar spine normal to inspection Skin: General skin exam: no rashes or lesions noted Neuro: General: patient oriented x3, no focal motor deficits and normal sensation to monofilament Cranial nerves: Yes Equal, round and reactive pupils present Cognition (Neuro): normal cognition Speech: No Abnormal speech present Gait exam (Neuro): Normal gait present Motor exam (neuro): 5/5 motor strength present throughout Extrem: Other: Full range of motion of elbow and right shoulder. Patient is able to move the wrist although does have some pain with flexion and extension. She is also able to move the hand w/ exception of 5th digit but does have some pain with flexion and extension. Neurovascular intact distally. Normal cap refill. Palpable radial and ulnar pulses General: Yes normal to inspection Elbow/forearm/wrist images: 1. 2 cm laceration Hand/finger images: 1. Several superficial abrasions with no active bleeding. No palpable foreign body. Course Course Course Narrative: Hand and wrist x-ray shows no acute bony abnormality or foreign body. Tetanus is updated. See procedure note for laceration repair. Reviewed worrisome signs and symptoms of when to return to the emergency room. Comfortable plan for discharge home. MDM - Wound/Laceration MDM Narrative Medical decision making narrative: 27-year-old female who is [id number] here with laceration and abrasions to right hand after a mirror fell on the hand. Tetanus status is out of date. Patient has some limited range of motion of the right 5th digit at baseline. Otherwise her range of motion is normal but is quite painful for her the hand and wrist. Neurovascular intact distally. Normal pulses. Will check x-rays to eval for foreign body. Will need wound repair of laceration Differential Diagnosis Differential diagnosis: Likely laceration Medical Records Attestation: I reviewed the patient's medical records. Lab Data Attestation: I reviewed the patient's lab results. Imaging Data hand/wrist x-ray: Attestation: I personally reviewed and interpreted this imaging study as follows: Radiologist's impression: Launch?Image [place] [address] XRay Report Signed Patient: Wendy Luna MR#: [id number] : 1995 Acct:[id number] Age/Sex: 27 / F ADM Date: 09/11/22 Loc: HO.ED Attending Dr: Ordering Physician: Tess Delaney MD Date of Service: 09/11/22 Procedure(s): XR hand wrist RT Accession Number(s): [id number] cc: Tess Delaney MD~ EXAMINATION: ?XR hand wrist RT CLINICAL INFORMATION: Reason for Exam glass injury/pain on rom COMPARISON: None. TECHNIQUE: Four views of the hand and wrist XR/XR hand wrist RT FINDINGS/IMPRESSION: ? *? No acute fracture or dislocation. ? ? *? Joint spaces are maintained without significant degenerative change. ? *? No soft tissue abnormality or radiopaque retained foreign body. Dictated By: Batool Gregorio MD Procedures Laceration Laceration 1: Site: upper extremity Side (If applicable): right Size (cm): 2 Description: linear Depth: simple, single layer Local Anesthetic: lidocaine 1% Amount of anesthesia used (mL): 2 Pre-repair: wound explored, irrigated extensively and deep structures intact Skin layer closed with: vicryl Size (cm): 5-0 Number of sutures: 3 Technique: simple, interrupted Discharge Plan Discharge Clinical Impression: Laceration Patient Disposition: Home, Self-Care Instructions: Laceration (ED) Additional Instructions: X-ray show no broken bones Sutures out in 7-10 days Take Motrin or Tylenol for pain as needed Prescriptions: No Action docusate sodium [Colace] 100 mg capsule 100 mg PO BID ferrous sulfate 325 mg (65 mg iron) tablet 325 mg PO BID naproxen 250 mg tablet 250 mg PO BID PRN carbamazepine [Tegretol XR] 200 mg tablet extended release 12 hr 200 mg PO BID ascorbic acid (vitamin C) [Vitamin C] 500 mg tablet,chewable See Rx Instructions .ROUTE .COMPLEX Qty: 60 3RF Dose Instruction: CHEW 1 TABLET BY MOUTH TWICE DAILY TAKE WITH FERROUS SULFATE Rx Instructions: CHEW 1 TABLET BY MOUTH TWICE DAILY TAKE WITH FERROUS SULFATE nitrofurantoin monohyd/m-cryst [Macrobid] 100 mg capsule 100 mg PO Q12H 7 Days Qty: 14 0RF Rx Instructions: must administer with a meal/food Referrals: Physician,Allison J [Primary Care Provider] -
[2022-09-11] MEDS: Diphth,Pertus(ACell),Tet Adult 0.5 ML SYRINGE IM (18:25)
[2022-09-11] MEDS: Lidocaine HCl 1 % MPF 2 ML VIAL INFILTRATI (18:26)
== END 2022-09-11 19:03 | disposition home or self-care (01) ==
PROVIDERS: Emergency Provider Student in an Organized Health Care Education/Training Program
DX: S61.411A Laceration without foreign body of right hand, initial encounter (principal); W20.8XXA Other cause of strike by thrown, projected or falling object, initial encounter; Y93.E9 Activity, other interior property and clothing maintenance; Y92.019 Unspecified place in single-family (private) house as the place of occurrence of the external cause; Y99.9 Unspecified external cause status
CPT/HCPCS: 12001; 73110; 73130; 90471; 90715; 99281; 99284

== ENCOUNTER 2022-09-26 19:19 | Emergency (ER) | payer OTHER, SELFPAY ==
[2022-09-26 20:36] VITALS: BP 115/60; PULSE 60; RESP 18; TEMP 36.5; O2SAT 100; BMI 29.9
[2022-09-26 20:57] LABS: MANUAL DIFF FLAG NO
[2022-09-26 20:59] LABS: Basophils Percent Auto 0.5 % (0-2); Eosinophils Absolute Auto 0.1 X10*3/uL (0.0-0.4); Eosinophils Percent Auto 1.1 % (0-4); Hematocrit 38.4 % (37.0-47.0); Hemoglobin 12.5 g/dl (12.0-16.0); Imm Gran Abs Auto 0.02 X10*3/uL (0.00-0.03); Imm Gran Pct Auto 0.2 % (0.0-0.4); Lymphocytes Absolute Auto 2.6 X10*3/uL (1.2-4.9); Mean Corpuscular HGB Conc 32.6 g/dl (31.0-35.0); Mean Corpuscular Hemoglobin 29.6 pg (27.0-33.0); Mean Corpuscular Volume 90.8 fL (80.0-98.0); Mean Platelet Volume 10.5 fL (9.4-12.3); Monocytes Absolute Auto 0.5 X10*3/uL (0.1-1.2); Monocytes Percent Auto 5.5 % (2-11); Neutrophils Absolute Auto 5.5 x10*3/uL (2.0-8.3); Neutrophils Percent Auto 62.7 % (45-73); Platelet Count 257 X10*3/uL (160-400); Red Blood Count 4.23 X10*6/uL (4.20-5.50); Red Cell Distribution Width 12.6 % (11.0-16.0); White Blood Count 8.8 X10*3/uL (4.8-10.8)
[2022-09-26 21:14] LABS: Alanine Aminotransferase 13 U/L (0-31); Albumin Level 4.5 g/dL (3.5-5.0); Alkaline Phosphatase 73 U/L (39-117); Anion Gap 14 (12-20); Aspartate Amino Transferase 18 U/L (5-31); Bilirubin Total 1.2 mg/dL (0.0-1.0); Blood Urea Nitrogen 18 mg/dL (9-16); Calcium 9.4 mg/dL (8.4-10.2); Carbon Dioxide 23 mmol/L (22-29); Chloride 106 mmol/L (96-108); Creatinine Clr Calc Pharmacy 94.9; Estimated Glomerular Filt Rate > 60; Glucose Random 89 mg/dL (60-115); Potassium 3.9 mmol/L (3.3-5.1); Sodium 139 mmol/L (135-145); Total Protein 7.5 g/dL (6.5-8.0)
--- OUTSIDE RECORDS SUMMARY | 2022-09-27 01:45 | XMS_ITS | Continuity of Care Document ---
:1995 Author Organization [facility] Address [address] [place] [address]- Care Team Providers Name Role Phone Jose L MIDDLETON, Anel Primary Care Physician Encounter [facility] Date(s): 08/17/22 - 09/16/[address] [address] Attending Physician: Maco Torres Admitting [...] term) 94 Given 1Admin Note: vis given 05/29/201216918Hdghs Note: VIS [id number] Note: vis given Admin Note: VIS [id number] Note: VIS Admin Note: VIS 02/08/2008 7Admin Note: hx varicella '[id number] Note: as default missing dates doc. Medications Apri 0.15 mg-0.03 mg oral tablet 1 tablet, By Mouth, Daily, # 84 tablet, 0 Refills, Maintenance, 07/21/22 22:20:00 EDT, Tablet, [facility] #[id number], Partial fill upon patient request if the prescription is for a schedule II opioid drug., 1 tablet By Mouth Daily, 155, cm, 04/28... Start Date: 07/21/22 Status: Orderedfamotidine 20 mg oral tablet 20 mg, 1, tablet, By Mouth, 2 times a day, PRN, # 60 tablet, Refills 0, Tot. Refills 0, Maintenance,Dyspepsia, 07/09/22 13:05:00 EDT, Route to Pharmacy Electronically, [facility] #[id number], Partial fill upon patient request if the prescription... Start Date: 07/09/22 Status: OrderedlevETIRAcetam 500 mg oral tablet 1 tablet = 500 mg, By Mouth, 2 times a day, # 60 tablet, 5 Refills, Maintenance, 04/23/22 9:29:00 EDT, Tablet, [facility] #[id number], Partial fill upon patient request if the [...] PersonnelName: Jose L MIDDLETON, Anel Address: Address: [address] [place] [address]
--- NOTE | 2022-09-27 02:35 | ED_ITS ---
HPI - Dental/Oral General Chief complaint: Dental/Oral Stated complaint: Dental pain Time Seen by Provider: 09/27/22 02:26 Source: patient Mode of arrival: ambulatory Limitations: no limitations History of Present Illness HPI Narrative: 27-year-old female who presents emergency department for evaluation of pain to her upper jaw x5 days. The patient had 5 upper teeth extracted 5 days prior. She states she developed pain immediately after the procedure. She states she was given prescriptions by the dentist but she lost the medications. She is not taking any medications for the pain. She states that over the past 1-2 days the pain in her upper jaws become more severe. She describes the pain is a constant pressure-like pain which is 10/10. She also feels like her upper lips and gums are swollen. She states she has also noticed a weight is discharge from her upper and lower gum line. She denied fever or chills. She denied chest pain, shortness of breath, dyspnea on exertion. Related Data Home Medications Medication Instructions Recorded Confirmed carbamazepine 200 mg 200 mg PO BID 04/19/22 tablet,extended release,12 hr (Tegretol XR) docusate sodium 100 mg capsule 100 mg PO BID 04/19/22 (Colace) ferrous sulfate 325 mg (65 mg 325 mg PO BID 04/19/22 iron) tablet naproxen 250 mg tablet 250 mg PO BID PRN 04/19/22 Previous Rx's Medication Instructions Recorded ascorbic acid (vitamin C) 500 mg See Rx Instructions .Route 04/20/22 chewable tablet (Vitamin C) .COMPLEX #60 tabs nitrofurantoin 100 mg PO Q12H 7 days #14 caps 08/28/22 monohydrate/macrocrystals 100 mg capsule (Macrobid) acetaminophen 500 mg tablet 1,000 mg PO Q6H PRN fever or pain 09/27/22 (Tylenol Extra Strength) #20 tabs amoxicillin 500 mg capsule 1,000 mg PO BID 5 days #20 caps 09/27/22 ibuprofen 600 mg tablet 600 mg PO Q6H PRN pain #30 tabs 09/27/22 oxycodone 5 mg tablet 5 mg PO Q4H PRN pain #14 tabs 09/27/22 Allergies Allergy/AdvReac Type Severity Reaction Status Date / Time No Known Allergies Allergy Verified 06/17/21 22:39 Review of Systems Review of Systems: Yes all other systems are reviewed and are negative COUNTS INCLUDE 234 BEDS AT THE [facility] Past Medical History Medical History No known health problems Seizure disorder Surgical History H/O section Social History Social History Patient Tobacco Use Status: Never used Tobacco Advance Directives: No Physical Exam Vital Signs: Vital Signs: Last Vital Signs Temp 97.7 F 09/26/22 20:36 Pulse 60 09/26/22 20:36 Resp 18 09/26/22 20:36 BP 115/60 09/26/22 20:36 Pulse Ox 100 09/26/22 20:36 O2 Del Method 09/26/22 20:36 BMI result Body Mass Index 29.9 Const: General: cooperative and no acute distress Orientation/consciousness: oriented to person and oriented to place Limitations: no limitations HEENT: Other: Patient has extraction of her upper teeth, there is whitish discharge from the extraction site as well as a whitish discharge from the lower gum area, the patient's upper gingiva does appear to be swollen compared to the lower, this area is tender to palpation Head: Yes normal to inspection, Yes normocephalic and Yes atraumatic Ears: external ears normal General nose exam: Normal external nose present Face and sinus: Yes normal facial exam Throat: Yes posterior oropharynx normal Eyes: General: appearance normal, both eyes and all related structures Pupils: Equal, round and reactive pupils present Neck: Neck: Yes normal visual inspection, Yes no lymphadenopathy, Yes trachea midline and Yes supple Chest: Chest palpation & inspection: normal inspection of the chest and normal palpation of entire chest wall Resp: Effort & Inspection: normal respiratory effort and able to speak in complete sentences Auscultation: clear to auscultation bilaterally Cardio: Rate: regular rate Rhythm: regular rhythm Heart sounds: S1 normal heart sound present, S2 normal heart sound present and no murmurs GI: Inspection: Yes normal to inspection Palpation (GI): Soft to palpation, nontender and no guarding Auscultation: normal bowel sounds : General: Yes no CVA tenderness Back/Spine/Pelvis: Back: no CVA tenderness Skin: General skin exam: no rashes or lesions noted Neuro: General: oriented to person and oriented to place Cranial nerves: Yes CN's II-XII intact bilaterally and Yes Equal, round and reactive pupils present Extrem: General: Yes normal to inspection Psych: Appearance: grossly normal Mental Status: mental status grossly normal Speech and movement: Normal speech and movement present Attitude: cooperative Thought content: Normal thought content present Course Course Course Narrative: 27-year-old female who presents emergency department for evaluation of pain and swelling of her upper lip and jaw after a dental extraction 5 days prior pain patient's vital signs were normal. Patient's laboratory evaluation included a CBC and CMP which were unremarkable. Patient's physical findings are consistent with gingival infection after dental extraction. Patient started on amoxicillin 1000 mg twice a day for 5 days, she was prescribed Tylenol, ibuprofen and oxycodone for pain. She was given her 1st dose of amoxicillin ibuprofen oxycodone here in the emergency department. She was discharged home with printed and verbal instructions advised to follow-up with a dentist within 1 week. MDM - Dental/Oral Lab Data Result diagrams: 09/26/22 20:53 09/26/22 20:53 Labs: Lab Results 09/26/22 09/26/22 Range/Units 20:53 20:53 WBC 8.8 (4.8-10.8) X10*3/uL RBC 4.23 (4.20-5.50) X10*6/uL Hgb 12.5 (12.0-16.0) g/dl Hct 38.4 (37.0-47.0) % MCV 90.8 (80.0-98.0) fL MCH 29.6 (27.0-33.0) pg MCHC 32.6 (31.0-35.0) g/dl RDW 12.6 (11.0-16.0) % Plt Count 257 (160-400) X10*3/uL MPV 10.5 (9.4-12.3) fL Immature Gran % (Auto) 0.2 (0.0-0.4) % Neut % (Auto) 62.7 (45-73) % Lymph % (Auto) 30.0 (20-40) % Cloud % (Auto) 5.5 (2-11) % Eos % (Auto) 1.1 (0-4) % Baso % (Auto) 0.5 (0-2) % Lymph # (Auto) 2.6 (1.2-4.9) X10*3/uL Cloud # (Auto) 0.5 (0.1-1.2) X10*3/uL Eos # (Auto) 0.1 (0.0-0.4) X10*3/uL Baso # (Auto) 0.0 (0.0-0.2) X10*3/uL Abs Immat Gran (auto) 0.02 (0.00-0.03) X10*3/uL Absolute Neuts (auto) 5.5 (2.0-8.3) x10*3/uL Absolute Nucleated RBC 0.000 (0.0-0.012) X10*3/uL Nucleated RBC % (auto) 0.0 (0.0-0.2) /100WBC Sodium 139 (135-145) mmol/L Potassium 3.9 (3.3-5.1) mmol/L Chloride 106 (96-108) mmol/L Carbon Dioxide 23 (22-29) mmol/L Anion Gap 14 (12-20) BUN 18 H (9-16) mg/dL Creatinine 0.80 (0.5-1.4) mg/dL Estim Creat Clear Calc 94.9 Estimated GFR > 60 Random Glucose 89 (60-115) mg/dL Calcium 9.4 (8.4-10.2) mg/dL Total Bilirubin 1.2 H (0.0-1.0) mg/dL AST 18 (5-31) U/L ALT 13 (0-31) U/L Alkaline Phosphatase 73 (39-117) U/L Total Protein 7.5 (6.5-8.0) g/dL Albumin 4.5 (3.5-5.0) g/dL Discharge Plan Discharge Clinical Impression: Gingivitis, Pain, dental Patient Disposition: Home, Self-Care Instructions: Gingivitis (ED) Additional Instructions: Your findings are consistent with an infection of the gums in the area of the dental/teeth extractions. Your blood work was normal. Take ibuprofen 6 mg pills, 1 pills every 6 hours as needed for pain. Take Tylenol (acetaminophen) 500 mg pills, 2 pills every 4-6 hours as needed for pain. For pain not relieved by ibuprofen or Tylenol take oxycodone 5 mg pills, 1 pill every 4 hours as needed for pain. Do not drive or work while taking this medication since they can cause sleepiness. Oxycodone is a narcotic medication that can be addicting. If you are concerned about addiction you can ask the pharmacist for less pills or do not get this prescription filled. Follow-up with your dentist in 7 days. Please return to the emergency department if your symptoms get worse or if you develop any symptoms that are concerning to you. Prescriptions: New amoxicillin 500 mg capsule 1,000 mg PO BID 5 Days Qty: 20 0RF acetaminophen [Tylenol Extra Strength] 500 mg tablet 1,000 mg PO Q6H PRN (Reason: fever or pain) Qty: 20 0RF ibuprofen 600 mg tablet 600 mg PO Q6H PRN (Reason: pain) Qty: 30 0RF oxycodone 5 mg tablet 5 mg PO Q4H PRN (Reason: pain) Qty: 14 0RF Rx Instructions: Patient may request partial fill; Partial Fill upon patient request. No Action docusate sodium [Colace] 100 mg capsule 100 mg PO BID ferrous sulfate 325 mg (65 mg iron) tablet 325 mg PO BID naproxen 250 mg tablet 250 mg PO BID PRN carbamazepine [Tegretol XR] 200 mg tablet extended release 12 hr 200 mg PO BID ascorbic acid (vitamin C) [Vitamin C] 500 mg tablet,chewable See Rx Instructions .ROUTE .COMPLEX Qty: 60 3RF Dose Instruction: CHEW 1 TABLET BY MOUTH TWICE DAILY TAKE WITH FERROUS SULFATE Rx Instructions: CHEW 1 TABLET BY MOUTH TWICE DAILY TAKE WITH FERROUS SULFATE nitrofurantoin monohyd/m-cryst [Macrobid] 100 mg capsule 100 mg PO Q12H 7 Days Qty: 14 0RF Rx Instructions: must administer with a meal/food
[2022-09-27] MEDS: oxyCODONE HCl Immed Release 5 MG TABLET 10 MG PO (02:46)
[2022-09-27] MEDS: Ibuprofen 600 MG TABLET PO (02:46)
[2022-09-27] MEDS: Amoxicillin 500 MG CAPSULE 1000 MG PO (02:46)
== END 2022-09-27 03:18 | disposition home or self-care (01) ==
PROVIDERS: Emergency Provider Emergency Medicine Emergency Medical Services
DX: K05.10 Chronic gingivitis, plaque induced (principal); K08.89 Other specified disorders of teeth and supporting structures; Z79.899 Other long term (current) drug therapy
CPT/HCPCS: 36415; 80053; 85025; 99283

== ENCOUNTER 2022-11-05 10:29 | Emergency (ER) | payer OTHER, SELFPAY ==
--- NOTE | ~2022-11-05 | CT_ITS ---
EXAMINATION: CT ABDOMEN AND PELVIS WITHOUT CONTRAST CLINICAL INFORMATION: Right-sided pain COMPARISON: 01/08/2022 TECHNIQUE: Multidetector volumetric imaging was performed from the superior aspect of the liver through the pubic symphysis. Sagittal and coronal reformatted images were obtained on the technologist's workstation. This CT examination was performed using dose optimization techniques as appropriate, variously including the following: *Automated exposure control *Adjustment of mA and/or kV according to patient size (this includes techniques or standardized protocols for targeted exams where dose is matched to indication/reason for exam; i.e. extremities or head) *Use of iterative reconstruction technique DLP: 587 mGy-cm FINDINGS: LUNG BASES: The visualized lung bases are unremarkable. LIVER, GALLBLADDER, AND BILIARY TREE: Unenhanced liver grossly normal. No focal mass. No biliary dilatation.. The gallbladder is unremarkable with no evidence of radiopaque gallstones, gallbladder wall thickening, or obvious pericholecystic inflammatory changes. PANCREAS: Unremarkable. SPLEEN: Unremarkable. ADRENAL GLANDS: Unremarkable. KIDNEYS AND URETERS: The kidneys are normal in size, shape, and attenuation. No hydronephrosis, hydroureter, or calculi seen. No perinephric stranding. BLADDER: Unremarkable. GASTROINTESTINAL TRACT: The small and large bowel are unremarkable. The appendix is unremarkable. ABDOMINAL WALL: No significant hernia is appreciated. LYMPH NODES: Normal. VASCULAR: Unremarkable. PELVIC VISCERA: Uterus and adnexal structures are unremarkable. There is no ascites deep in the pelvis. OSSEOUS STRUCTURES: Unremarkable. CT/CT abdomen pelvis wo IV con IMPRESSION: Unremarkable exam. No acute abnormalities. Appendix is normal.
--- NOTE | ~2022-11-05 | US_ITS ---
EXAMINATION: US PELVIS CLINICAL INFORMATION: Vaginal bleeding and cramping. COMPARISON: CT scan of the abdomen and pelvis dated 01/08/2022. TECHNIQUE: Ultrasound of the pelvis is performed using both transabdominal and transvaginal transducers along with Doppler. Transvaginal imaging is performed due to inadequate visualization transabdominally. FINDINGS: Uterus: The uterus is anteverted/anteflexed and measures 7.3 x 4.6 x 6.0 cm. Subseptated configuration with 2 endometrial limbs at the fundus both measuring 0.9 cm without focal abnormality. The cervix is closed with minimal anechoic fluid within the canal measuring approximately 2.7 cm. Right ovary: 3.8 x 1.8 x 2.5 cm with a volume of 8.9 mL. Color Doppler showed no abnormal vascular flow. No right adnexal abnormality. Left ovary: 4.9 x 2.7 x 2.8 cm with a volume of 19.4 mL heterogeneous mass with echogenic, hypoechoic and anechoic components. Exophytic anechoic component measures 1.9 x 1.6 x 1.5 cm. Color Doppler showed no abnormal vascular flow. US/US pelvic and transvaginal IMPRESSION: 1. Uterine subseptated configuration without associated abnormality. 2. Left adnexal dermoid correlating with previous CT findings. No other significant adnexal abnormality.
[2022-11-05 10:45] VITALS: BP 109/52; PULSE 75; RESP 16; TEMP 36.1; O2SAT 98; BMI 22.6
[2022-11-05 11:04] LABS: MANUAL DIFF FLAG NO
[2022-11-05 11:07] LABS: Basophils Percent Auto 0.4 % (0-2); Eosinophils Absolute Auto 0.1 X10*3/uL (0.0-0.4); Eosinophils Percent Auto 1.4 % (0-4); Hematocrit 36.9 % (37.0-47.0); Hemoglobin 12.7 g/dl (12.0-16.0); Imm Gran Abs Auto 0.02 X10*3/uL (0.00-0.03); Imm Gran Pct Auto 0.3 % (0.0-0.4); Lymphocytes Absolute Auto 1.3 X10*3/uL (1.2-4.9); Mean Corpuscular HGB Conc 34.4 g/dl (31.0-35.0); Mean Corpuscular Hemoglobin 30.2 pg (27.0-33.0); Mean Corpuscular Volume 87.6 fL (80.0-98.0); Mean Platelet Volume 9.9 fL (9.4-12.3); Monocytes Absolute Auto 0.4 X10*3/uL (0.1-1.2); Monocytes Percent Auto 5.9 % (2-11); Neutrophils Absolute Auto 5.1 x10*3/uL (2.0-8.3); Platelet Count 274 X10*3/uL (160-400); Red Blood Count 4.21 X10*6/uL (4.20-5.50); Red Cell Distribution Width 12.2 % (11.0-16.0)
[2022-11-05 11:34] LABS: Anion Gap 11 (12-20); Blood Urea Nitrogen 15 mg/dL (9-16); Calcium 9.2 mg/dL (8.4-10.2); Carbon Dioxide 26 mmol/L (22-29); Chloride 104 mmol/L (96-108); Creatinine Clr Calc Pharmacy 92.9; Estimated Glomerular Filt Rate > 60; Glucose Random 90 mg/dL (60-115); HCG Quantitative < 2 mIU/mL; Potassium 3.8 mmol/L (3.3-5.1); Sodium 137 mmol/L (135-145)
[2022-11-05 12:58] LABS: Alanine Aminotransferase 9 U/L (0-31); Albumin Level 4.5 g/dL (3.5-5.0); Alkaline Phosphatase 75 U/L (39-117); Aspartate Amino Transferase 17 U/L (5-31); Bilirubin Direct 0.3 mg/dL (0.0-0.5); Bilirubin Total 0.8 mg/dL (0.0-1.0); Lipase 17 U/L (8-78); Magnesium 1.8 mg/dL (1.6-2.6); Total Protein 7.2 g/dL (6.5-8.0)
--- NOTE | 2022-11-05 13:03 | ED_ITS ---
HPI - Female Genitourinary General Chief complaint: Urogenital-Female Stated complaint: Miscarriage 3 Days Ago Time Seen by Provider: 11/05/22 12:55 Source: patient Mode of arrival: ambulatory Limitations: no limitations History of Present Illness HPI Narrative: 27 yo female with a history of a seizure disorder presents with concerned that she may be . Patient reports on 11/02 she passed a large blood clot and has been having some intermittent vaginal bleeding since that which is associated with abdominal pain, vomiting and diarrhea. No urinary symptoms. Patient believes her last period was September 28. Patient tells me that she did have sexual intercourse with her previous partner in no September. She did not use any condoms and is not on any oral contraception. Related Data Home Medications Medication Instructions Recorded Confirmed carbamazepine 200 mg 200 mg PO BID 04/19/22 tablet,extended release,12 hr (Tegretol XR) docusate sodium 100 mg capsule 100 mg PO BID 04/19/22 (Colace) ferrous sulfate 325 mg (65 mg 325 mg PO BID 04/19/22 iron) tablet naproxen 250 mg tablet 250 mg PO BID PRN 04/19/22 Previous Rx's Medication Instructions Recorded ascorbic acid (vitamin C) 500 mg See Rx Instructions .Route 04/20/22 chewable tablet (Vitamin C) .COMPLEX #60 tabs nitrofurantoin 100 mg PO Q12H 7 days #14 caps 08/28/22 monohydrate/macrocrystals 100 mg capsule (Macrobid) acetaminophen 500 mg tablet 1,000 mg PO Q6H PRN fever or pain 09/27/22 (Tylenol Extra Strength) #20 tabs amoxicillin 500 mg capsule 1,000 mg PO BID 5 days #20 caps 09/27/22 ibuprofen 600 mg tablet 600 mg PO Q6H PRN pain #30 tabs 09/27/22 oxycodone 5 mg tablet 5 mg PO Q4H PRN pain #14 tabs 09/27/22 Allergies Allergy/AdvReac Type Severity Reaction Status Date / Time No Known Allergies Allergy Verified 06/17/21 22:39 Review of Systems Review of Systems: Yes all other systems are reviewed and are negative Constitutional: Constitutional: Reports no additional constitutional complaints, Denies body ache(s), Denies chills, Denies fever(s), Denies headache(s) and Denies weakness Eyes: Eyes: Reports no additional eye complaints and Denies change in vision ENT: Reports system reviewed and no additional complaints, except as documented, Denies dizziness, Denies headache(s), Denies nasal congestion, Denies nasal discharge and Denies neck pain Cardiovascular: Cardiovascular: Reports no additional cardiovascular complaints, Denies chest pain, Denies leg edema and Denies dyspnea Respiratory: Respiratory: Reports no additional respiratory complaints, Denies cough and Denies dyspnea Gastrointestinal: Gastrointestinal: Reports no additional gastrointestinal complaints, Reports abdominal pain, Reports diarrhea, Reports nausea and Reports vomiting Genitourinary: Genitourinary: Reports no additional female genitourinary complaints, Reports abnormal vaginal bleeding and Denies urinary incontinence Musculoskeletal: Musculoskeletal: Reports no additional musculoskeletal complaints, Denies back pain, Denies arthralgias, Denies joint swelling, Denies neck pain, Denies numbness and Denies tingling Integumentary/Breasts: Skin/Breast: Reports system reviewed and no additional complaints, except as docu and Denies rash Neurologic: Reports system reviewed and no additional complaints, except as documented, Denies Abnormal speech present, Denies dizziness, Denies headache(s), Denies numbness, Denies tingling and Denies weakness PMFSH Past Medical History Attestation statement: The following information was validated with the patient. Source: old records reviewed and nursing notes reviewed Medical History No known health problems Seizure disorder Surgical History H/O section Social History Social History Patient Tobacco Use Status: Never used Tobacco Smoked in Last 30 Days: No Use of substances other than those prescribed or required for medical reasons: No Advance Directives: Yes Advance Directives Information Provided: Yes Advance Directives on File: No Physical Exam Vital Signs: Vital Signs: Last Vital Signs Temp 99 F 11/05/22 15:32 Pulse 75 11/05/22 15:32 Resp 16 11/05/22 15:32 BP 113/40 L 11/05/22 15:32 Pulse Ox 99 11/05/22 15:32 O2 Del Method 11/05/22 15:32 BMI result Body Mass Index 22.6 Const: General: cooperative, healthy appearing, comfortable and no acute distr ess Orientation/consciousness: patient oriented x3 Limitations: no limitations HEENT: Head: Yes normal to inspection Ears: hearing grossly normal bilaterally General nose exam: Normal external nose present Face and sinus: Yes normal facial exam Mouth: Normal oral and palatal mucosa present Throat: Yes posterior oropharynx normal Eyes: General: appearance normal, both eyes and all related structures Pupils: Equal, round and reactive pupils present Neck: Neck: Yes normal visual inspection Chest: Chest palpation & inspection: normal inspection of the chest Resp: Effort & Inspection: normal respiratory effort Auscultation: clear to auscultation bilaterally Cardio: Rate: regular rate Rhythm: regular rhythm Peripheral pulses: Peripheral pulses 2+ throughout GI: Inspection: Yes normal to inspection Palpation (GI): Soft to palpation and Tenderness to palpation present (GI) (Suprapubic and right pelvic area with no rebound or guarding) Auscultation: normal bowel sounds : Other: Trini tech present as category planner External Female Exam: normal external appearance Speculum Exam - Vagina: normal appearance of the vagina S peculum Exam - Cervix: normal appearance of the cervix and nontender Bimanual exam- vagina & uterus: normal bimanual exam and No Cervical tenderness present Bimanual Exam- Adnexa, other: normal adnexae and no tenderness Back/Spine/Pelvis: Thoracic/Lumbar Spine: thoracic and lumbar spine normal to inspection Skin: General skin exam: no rashes or lesions noted Neuro: General: patient oriented x3, no focal motor deficits and normal sensation to monofilament Cranial nerves: Yes Equal, round and reactive pupils present Cognition (Neuro): normal cognition Speech: No Abnormal speech present Gait exam (Neuro): Normal gait present Motor exam (neuro): 5/5 motor strength present throughout Extrem: General: Yes normal to inspection, Yes no pedal edema and Yes no calf tenderness Course Course Course Narrative: Labs unremarkable. Old pelvic ultrasound shows no acute finding. Pelvic exam not consistent with any PID. Patient was able to void independently. 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 Therefore patient will leave against medical advice. I did explain to her that as we do not have a CT scan results we cannot rule out any abdominal cause of her pain. If there is any surgical cause she may need intervention and or admission to the hospital. Patient is aware of this. She is aware that we will not call her with the results. Medications Administered Discontinued Medications Generic Name Dose Route Start Last Admin Trade Name Toño PRN Reason Stop Dose Admin Ketorolac Tromethamine 60 mg 11/05/22 15:21 11/05/22 15:34 Ketorolac Tromethamine 60 Mg/2 Ml Vial IM 11/05/22 15:22 60 mg ONCE ONE Administration Medical Decision Making Medical Decision Making MDM Narrative: This is a 27-year-old female who presents with concern for or miscarriage after having some heavier vaginal bleeding which started on 11/02 with some associated abdominal pain. Patient reports she was several days late for her normal cycle. Also complaining of vomiting and diarrhea. Will check labs, UA, pelvic ultrasound and patient will need pelvic exam Patient feels like she cannot void and has not had several days due to lack of urge. Differential Diagnoses: Differential diagnosis (Spontaneous , PID, pregnanncy) Lab Attestation: I reviewed the patient's lab results. Independent interpretation of EKG, rhythm strip, radiology study: Independent interp EKG,rhythm strip, radiology study (1. Uterine subseptated configuration without associated abnormality. 2. Left adnexal dermoid correlating with previous CT findings. No other significant adnexal abnormality. ) I performed an independent interpretation of the: Ultrasound My interpretation is Discussion of test interpretation with radiology: Discussion of test interpretation with radiology Discharge Plan Discharge Clinical Impression: Abdominal pain Patient Disposition: Left Against Medical Advice Instructions: Abdominal Pain (ED) Additional Instructions: Unfortunately you had leave the for the results of your CT scan have come back. Please return any time Your ultrasound and lab work and urine are all normal Take Motrin or Tylenol for pain as needed Prescriptions: No Action docusate sodium [Colace] 100 mg capsule 100 mg PO BID ferrous sulfate 325 mg (65 mg iron) tablet 325 mg PO BID naproxen 250 mg tablet 250 mg PO BID PRN carbamazepine [Tegretol XR] 200 mg tablet extended release 12 hr 200 mg PO BID ascorbic acid (vitamin C) [Vitamin C] 500 mg tablet,chewable See Rx Instructions .ROUTE .COMPLEX Qty: 60 3RF Dose Instruction: CHEW 1 TABLET BY MOUTH TWICE DAILY TAKE WITH FERROUS SULFATE Rx Instructions: CHEW 1 TABLET BY MOUTH TWICE DAILY TAKE WITH FERROUS SULFATE amoxicillin 500 mg capsule 1,000 mg PO BID 5 Days Qty: 20 0RF acetaminophen [Tylenol Extra Strength] 500 mg tablet 1,000 mg PO Q6H PRN (Reason: fever or pain) Qty: 20 0RF ibuprofen 600 mg tablet 600 mg PO Q6H PRN (Reason: pain) Qty: 30 0RF oxycodone 5 mg tablet 5 mg PO Q4H PRN (Reason: pain) Qty: 14 0RF Rx Instructions: Patient may request partial fill; Partial Fill upon patient request. nitrofurantoin monohyd/m-cryst [Macrobid] 100 mg capsule 100 mg PO Q12H 7 Days Qty: 14 0RF Rx Instructions: must administer with a meal/food Referrals: Physician,Unknown J [Primary Care Provider] - Stand Alone Forms: Against Medical Advice
[2022-11-05 14:42] VITALS: BP 104/53; PULSE 74; RESP 18; O2SAT 97
[2022-11-05 15:32] VITALS: BP 113/40; PULSE 75; RESP 16; TEMP 37.2; O2SAT 99
--- NOTE | 2022-11-05 15:33 | PC.NURSE ---
report received from LIBIA Mata pt is alert and oriented resting in bed no sign of acute distress notice breathing equally unlabored
[2022-11-05] MEDS: Ketorolac Tromethamine 60 MG/2 ML VIAL IM (15:34)
[2022-11-05 15:59] LABS: Appearance Urine Cloudy; Color Urine Yellow; Glucose Urine UA Negative (Negative); Leukocyte Esterase Urine Negative (Negative); Nitrite Urine Negative (Negative); PH 8.5 (5.0-9.0); Specific Gravity - Urine 1.015 (1.005-1.025); Urine Blood Negative (Negative); Urine Ketones Negative (Negative); Urine Protein Negative (Neg-Trace)
[2022-11-05 17:04] LABS: CT PCR NOT DETECTED (Not Detect.); NG PCR NOT DETECTED (Not Detect.)
== END 2022-11-05 17:08 | disposition left against medical advice (07) ==
PROVIDERS: Nurse Practitioner Family; Physician Assistant; Emergency Provider Emergency Medicine Emergency Medical Services
DX: O03.4 Incomplete spontaneous abortion without complication (principal); R10.2 Pelvic and perineal pain; Z79.899 Other long term (current) drug therapy; Z20.2 Contact with and (suspected) exposure to infections with a predominantly sexual mode of transmission
CPT/HCPCS: 36415; 74176; 76830; 76856; 80048; 80076; 81003; 83690; 83735; 84702; 85025; 87480; 87491; 87510; 87591; 87660; 96372; 99284; J1885

== ENCOUNTER 2023-07-04 21:56 | Emergency (ER) | payer OTHER, SELFPAY ==
[2023-07-04 22:02] VITALS: BP 126/73; BP 129/82; PULSE 82; PULSE 99; RESP 12; TEMP 37.4; O2SAT 100; BMI 29.7
--- NOTE | 2023-07-04 22:10 | ED_ITS ---
HPI - Seizure General Chief Complaint: Seizure Stated Complaint: SEIZURES Source: patient Mode of arrival: EMS Limitations: no limitations History of Present Illness HPI Narrative: . Patient with history of seizures/anxiety induced seizures not sure whether she has taken Keppra in the past or not with no records patient does not remember exactly when she took up last time, came here for seizure tonight generalized tonic clonic x2 just prior to arrival lasted for few minutes each with patient postictal and confused no head injury no fever no chills no tongue bite patient does have a high stress at home with increased anxiety Related Data Home Medications Medication Instructions Recorded Confirmed carbamazepine 200 mg 200 mg PO BID 04/19/22 tablet,extended release,12 hr (Tegretol XR) docusate sodium 100 mg capsule 100 mg PO BID 04/19/22 (Colace) ferrous sulfate 325 mg (65 mg 325 mg PO BID 04/19/22 iron) tablet naproxen 250 mg tablet 250 mg PO BID PRN 04/19/22 Previous Rx's Medication Instructions Recorded ascorbic acid (vitamin C) 500 mg See Rx Instructions .Route 04/20/22 chewable tablet (Vitamin C) .COMPLEX #60 tabs nitrofurantoin 100 mg PO Q12H 7 days #14 caps 08/28/22 monohydrate/macrocrystals 100 mg capsule (Macrobid) acetaminophen 500 mg tablet 1,000 mg PO Q6H PRN fever or pain 09/27/22 (Tylenol Extra Strength) #20 tabs amoxicillin 500 mg capsule 1,000 mg PO BID 5 days #20 caps 09/27/22 ibuprofen 600 mg tablet 600 mg PO Q6H PRN pain #30 tabs 09/27/22 oxycodone 5 mg tablet 5 mg PO Q4H PRN pain #14 tabs 09/27/22 lorazepam 1 mg tablet (Ativan) 1 mg PO BEDTIME PRN seizure #10 07/05/23 tabs Allergies Allergy/AdvReac Type Severity Reaction Status Date / Time No Known Allergies Allergy Verified 06/17/21 22:39 Review of Systems Review of Systems: Yes all other systems are reviewed and are negative [facility] Past Medical History Medical History No known health problems Seizure disorder Surgical History H/O section Social History Social History Patient Tobacco Use Status: Never used Tobacco Advance Directives: No Advance Directives Information Provided: No Patient : No Physical Exam Vital Signs: Vital Signs: Last Vital Signs Temp 99.4 F 07/04/23 22:02 Pulse 89 07/04/23 23:41 Resp 18 07/04/23 23:41 BP 140/68 H 07/04/23 23:41 Pulse Ox 98 07/04/23 23:41 O2 Del Method Room Air 07/04/23 23:41 BMI result Body Mass Index 29.7 Appearance: Alert. Oriented X3. No acute distress. Sleepy tired Eyes: PERRLA, No Nystagmus ENT: Pharynx normal. Oral Mucosa moist no tongue bite Neck: Normal inspection. Neck supple. CVS: Normal heart rate and rhythm. Pulses normal. Respiratory: No respiratory distress. Equal air entry bilateral, no wheezing/rales/rhonchi Abdomen: Soft and nontender. Bowel sounds are present, no mass palpable, no CVA tenderness Skin: Skin warm and dry. Normal skin color. Normal skin turgor. Extremities: No lower extremity edema. No calf tenderness Neuro: Oriented X 3. No motor deficit. No sensory deficit.No cerebellar signs , cranial nerves II-XII intact Medications Administered Discontinued Medications Generic Name Dose Route Start Last Admin Trade Name Freq PRN Reason Stop Dose Admin Levetiracetam 1,000 mg in 100 mls @ 400 mls/hr 07/04/23 22:17 07/04/23 23:05 Keppra IV 07/04/23 22:31 Infused ONCE ONE Infusion Lorazepam 2 mg 07/04/23 23:43 07/04/23 23:44 Lorazepam 2 Mg/Ml Vial IVPUSH 07/04/23 23:44 2 mg ONCE ONE Administration Medical Decision Making Medical Decision Making MDM Narrative: During stay in the ER patient had another episode of seizure she was moving the head but able to open her mouth and had water no increased tone noticed james betancourt to family members same kind of seizure happened at home clinically is not epilepsy is psychogenic seizure will give her Ativan advised to follow up with PCP/neurologist family does admit that patient been under lot of stress lately Lab Data MDM Lab Attestation statement: I reviewed the patient's lab results. 07/04/23 22:17 07/04/23 22:17 Labs: Lab Results 07/04/23 07/04/23 Range/Units 22:17 22:17 WBC 7.4 (4.8-10.8) X10*3/uL RBC 4.27 (4.20-5.50) X10*6/uL Hgb 12.7 (12.0-16.0) g/dl Hct 37.8 (37.0-47.0) % MCV 88.5 (80.0-98.0) fL MCH 29.7 (27.0-33.0) pg MCHC 33.6 (31.0-35.0) g/dl RDW 12.5 (11.0-16.0) % Plt Count 238 (160-400) X10*3/uL MPV 10.2 (9.4-12.3) fL Absolute Nucleated RBC 0.000 (0.0-0.012) X10*3/uL Nucleated RBC % (auto) 0.0 (0.0-0.2) /100WBC Sodium 139 (135-145) mmol/L Potassium 3.4 (3.3-5.1) mmol/L Chloride 106 (96-108) mmol/L Carbon Dioxide 24 (22-29) mmol/L Anion Gap 12 (12-20) BUN 13 (9-16) mg/dL Creatinine 0.77 (0.5-1.4) mg/dL Estim Creat Clear Calc 113.4 Estimated GFR > 60 Random Glucose 103 (60-115) mg/dL Calcium 8.8 (8.4-10.2) mg/dL Total Bilirubin 0.9 (0.0-1.0) mg/dL AST 15 (5-31) U/L ALT 11 (0-31) U/L Alkaline Phosphatase 74 (39-117) U/L Total Protein 7.4 (6.5-8.0) g/dL Albumin 4.3 (3.5-5.0) g/dL Discharge Plan Discharge Clinical Impression: Psychogenic nonepileptic seizure Patient Disposition: Home, Self-Care Instructions: Nonepileptic Seizures (ED) Additional Instructions: You likely have anxiety induced seizures Take Ativan 1 tablet daily as needed for anxiety / seizure Follow-up with PCP Es probable que tenga convulsiones inducidas por la ansiedad Senath Ativan 1 tableta al d?a seg?n sea necesario para la ansiedad/convulsiones Seguimiento con PCP Prescriptions: New lorazepam [Ativan] 1 mg tablet 1 mg PO BEDTIME PRN (Reason: seizure) Qty: 10 0RF No Action docusate sodium [Colace] 100 mg capsule 100 mg PO BID ferrous sulfate 325 mg (65 mg iron) tablet 325 mg PO BID naproxen 250 mg tablet 250 mg PO BID PRN carbamazepine [Tegretol XR] 200 mg tablet extended release 12 hr 200 mg PO BID ascorbic acid (vitamin C) [Vitamin C] 500 mg tablet,chewable See Rx Instructions .ROUTE .COMPLEX Qty: 60 3RF Dose Instruction: CHEW 1 TABLET BY MOUTH TWICE DAILY TAKE WITH FERROUS SULFATE Rx Instructions: CHEW 1 TABLET BY MOUTH TWICE DAILY TAKE WITH FERROUS SULFATE amoxicillin 500 mg capsule 1,000 mg PO BID 5 Days Qty: 20 0RF acetaminophen [Tylenol Extra Strength] 500 mg tablet 1,000 mg PO Q6H PRN (Reason: fever or pain) Qty: 20 0RF ibuprofen 600 mg tablet 600 mg PO Q6H PRN (Reason: pain) Qty: 30 0RF oxycodone 5 mg tablet 5 mg PO Q4H PRN (Reason: pain) Qty: 14 0RF Rx Instructions: Patient may request partial fill; Partial Fill upon patient request. nitrofurantoin monohyd/m-cryst [Macrobid] 100 mg capsule 100 mg PO Q12H 7 Days Qty: 14 0RF Rx Instructions: must administer with a meal/food Print Language: [place] Citizen
--- NOTE | 2023-07-04 22:10 | MHC.EDTECH ---
Patient brought in by ambulance,patient was changed into hospital attire and placed on the teletypesetter monitor, vitals were taken and seizure pads were applied to stretcher for safety. call howard within reach and boyfriend is at bedside.
[2023-07-04] MEDS: levETIRAcetam in NaCl (iso-os) 1,000 MG/100 ML PIGGYBACK 400 MG IV (22:24)
[2023-07-04 22:27] LABS: Hematocrit 37.8 % (37.0-47.0); Hemoglobin 12.7 g/dl (12.0-16.0); Mean Corpuscular HGB Conc 33.6 g/dl (31.0-35.0); Mean Corpuscular Hemoglobin 29.7 pg (27.0-33.0); Mean Corpuscular Volume 88.5 fL (80.0-98.0); Mean Platelet Volume 10.2 fL (9.4-12.3); Platelet Count 238 X10*3/uL (160-400); Red Blood Count 4.27 X10*6/uL (4.20-5.50); Red Cell Distribution Width 12.5 % (11.0-16.0); White Blood Count 7.4 X10*3/uL (4.8-10.8)
[2023-07-04 22:37] LABS: Alanine Aminotransferase 11 U/L (0-31); Albumin Level 4.3 g/dL (3.5-5.0); Alkaline Phosphatase 74 U/L (39-117); Anion Gap 12 (12-20); Aspartate Amino Transferase 15 U/L (5-31); Bilirubin Total 0.9 mg/dL (0.0-1.0); Blood Urea Nitrogen 13 mg/dL (9-16); Calcium 8.8 mg/dL (8.4-10.2); Carbon Dioxide 24 mmol/L (22-29); Chloride 106 mmol/L (96-108); Creatinine Clr Calc Pharmacy 113.4; Estimated Glomerular Filt Rate > 60; Glucose Random 103 mg/dL (60-115); Potassium 3.4 mmol/L (3.3-5.1); Sodium 139 mmol/L (135-145); Total Protein 7.4 g/dL (6.5-8.0)
--- NOTE | 2023-07-04 23:37 | PC.NURSE ---
This RN called to room reopening pt was having a seizure. at the bedside order for 2mg iv push ativan stat. Per not epileptic seizure but treat the same. Pt not responding to verbal stimuli or sternal rub. Pt HR 119, O298% on room air, given 2mg IV ativan. Pt arousable, able to drink water given by .
[2023-07-04 23:41] VITALS: BP 140/68; PULSE 89; RESP 18; O2SAT 98
[2023-07-04] MEDS: LORazepam 2 MG/ML VIAL IVPUSH (23:44)
[2023-07-05 02:32] VITALS: BP 116/54; PULSE 83; RESP 18; TEMP 36.3; O2SAT 97
== END 2023-07-05 02:36 | disposition home or self-care (01) ==
PROVIDERS: Emergency Provider Internal Medicine
DX: R56.9 Unspecified convulsions (principal); F41.9 Anxiety disorder, unspecified
CPT/HCPCS: 36415; 80053; 85027; 96365; 96375; 99284; J1953; J2060

== ENCOUNTER 2024-01-30 23:40 | Emergency (ER) | payer OTHER, SELFPAY ==
[2024-01-30 23:47] VITALS: BP 136/46; PULSE 76; RESP 16; TEMP 36.1; O2SAT 100; BMI 34.2
[2024-01-31 00:13] LABS: MANUAL DIFF FLAG NO
[2024-01-31 00:14] LABS: Basophils Absolute Auto 0.1 X10*3/uL (0.0-0.2); Basophils Percent Auto 0.5 % (0-2); Eosinophils Absolute Auto 0.1 X10*3/uL (0.0-0.4); Eosinophils Percent Auto 1.5 % (0-4); Hematocrit 37.9 % (37.0-47.0); Hemoglobin 12.8 g/dl (12.0-16.0); Imm Gran Abs Auto 0.02 X10*3/uL (0.00-0.03); Imm Gran Pct Auto 0.2 % (0.0-0.4); Lymphocytes Absolute Auto 2.1 X10*3/uL (1.2-4.9); Lymphocytes Percent Auto 21.8 % (20-40); Mean Corpuscular HGB Conc 33.8 g/dl (31.0-35.0); Mean Corpuscular Hemoglobin 29.5 pg (27.0-33.0); Mean Corpuscular Volume 87.3 fL (80.0-98.0); Monocytes Absolute Auto 0.5 X10*3/uL (0.1-1.2); Monocytes Percent Auto 5.4 % (2-11); Neutrophils Absolute Auto 6.7 x10*3/uL (2.0-8.3); Neutrophils Percent Auto 70.6 % (45-73); Platelet Count 285 X10*3/uL (160-400); Red Blood Count 4.34 X10*6/uL (4.20-5.50); Red Cell Distribution Width 12.6 % (11.0-16.0); White Blood Count 9.4 X10*3/uL (4.8-10.8)
[2024-01-31 00:16] LABS: Appearance Urine Clear; Color Urine Yellow; Glucose Urine UA Negative (Negative); Leukocyte Esterase Urine Negative (Negative); Nitrite Urine Negative (Negative); PH 6.5 (5.0-9.0); Specific Gravity - Urine 1.025 (1.005-1.025); Urine Blood Negative (Negative); Urine Ketones Negative (Negative); Urine Protein Negative (Neg-Trace)
[2024-01-31 00:17] LABS: UPreg QC Valid YES; Urine Pregnancy NEGATIVE (NEGATIVE)
[2024-01-31 00:27] LABS: Alanine Aminotransferase 19 U/L (0-31); Albumin Level 4.4 g/dL (3.5-5.0); Alkaline Phosphatase 100 U/L (39-117); Anion Gap 13 (12-20); Aspartate Amino Transferase 25 U/L (5-31); Bilirubin Direct 0.2 mg/dL (0.0-0.5); Bilirubin Total 0.4 mg/dL (0.0-1.0); Blood Urea Nitrogen 14 mg/dL (9-16); Calcium 9.1 mg/dL (8.4-10.2); Carbon Dioxide 27 mmol/L (22-29); Chloride 102 mmol/L (96-108); Estimated Glomerular Filt Rate > 60; Glucose Random 107 mg/dL (60-115); Lipase 17 U/L (8-78); Potassium 3.8 mmol/L (3.3-5.1); Sodium 138 mmol/L (135-145); Total Protein 7.6 g/dL (6.5-8.0)
--- NOTE | 2024-01-31 01:26 | ED.NAVMDI ---
HPI - Nausea/Vomiting/Diarrhea General Chief complaint: Abdominal Pain Stated complaint: Vomiting Time Seen by Provider: 01/31/24 01:25 Source: patient Mode of arrival: ambulatory Limitations: no limitations History of Present Illness HPI Narrative: 28-year-old female history of palpitations, seizure disorder who presents emergency department for evaluation of abdominal pain, nausea vomiting, chills, sore throat, cough. Patient states that her symptoms started yesterday morning. She states she has not been able to eat or drink and every time she attempts to she vomits. She states that she is having pain and she points to her epigastric area when asked to localize the pain. She describes the pain is a sharp, stabbing pain which is 8/10 at its worst. She denied chest pain, shortness of breath, dyspnea on exertion. She is feeling weak, dizzy and lightheaded. Related Data Home Medications Medication Instructions Recorded Confirmed carbamazepine 200 mg 200 mg PO BID 04/19/22 tablet,extended release,12 hr (Tegretol XR) docusate sodium 100 mg capsule 100 mg PO BID 04/19/22 (Colace) ferrous sulfate 325 mg (65 mg 325 mg PO BID 04/19/22 iron) tablet naproxen 250 mg tablet 250 mg PO BID PRN 04/19/22 Previous Rx's Medication Instructions Recorded ascorbic acid (vitamin C) 500 mg See Rx Instructions .Route 04/20/22 chewable tablet (Vitamin C) .COMPLEX #60 tabs nitrofurantoin 100 mg PO Q12H 7 days #14 caps 08/28/22 monohydrate/macrocrystals 100 mg capsule (Macrobid) acetaminophen 500 mg tablet 1,000 mg (2 x 500 mg) PO Q6H PRN 09/27/22 (Tylenol Extra Strength) fever or pain #20 tabs amoxicillin 500 mg capsule 1,000 mg (2 x 500 mg) PO BID 5 09/27/22 days #20 caps ibuprofen 600 mg tablet 600 mg PO Q6H PRN pain #30 tabs 09/27/22 oxycodone 5 mg tablet 5 mg PO Q4H PRN pain #14 tabs 09/27/22 lorazepam 1 mg tablet (Ativan) 1 mg PO BEDTIME PRN seizure #10 07/05/23 tabs acetaminophen 500 mg tablet 1,000 mg (2 x 500 mg) PO Q6H PRN 01/31/24 (Tylenol Extra Strength) fever or pain #20 tabs ibuprofen 400 mg tablet 400 mg PO TID PRN fever or pain 01/31/24 #30 tabs ondansetron 4 mg disintegrating 4 mg PO Q6-8H PRN nausea and 01/31/24 tablet vomiting #14 tabs Allergies Allergy/AdvReac Type Severity Reaction Status Date / Time No Known Allergies Allergy Verified 01/30/24 23:47 Review of Systems Review of Systems: Yes all other systems are reviewed and are negative [facility] Past Medical History [facility] Narrative: Social history: She occasionally smokes cigarettes. She denies alcohol use. She denies drug use. Medical History Seizure disorder No known health problems Surgical History H/O section Social History Social History Patient Tobacco Use Status: Never used Tobacco Smoked in Last 30 Days: No Use of substances other than those prescribed or required for medical reasons: No Advance Directives: No Advance Directives Information Provided: Yes Patient : No Physical Exam Vital Signs: Vital Signs: Last Vital Signs Temp 97 F 01/30/24 23:47 Pulse 76 01/30/24 23:47 Resp 16 01/30/24 23:47 BP 136/46 L 01/30/24 23:47 Pulse Ox 100 01/30/24 23:47 BMI result Body Mass Index 34.2 Vital signs were normal Exam: General: Awake, alert in no distress Head: Normocephalic, atraumatic EENT: PERRL, Lids normal, sclera normal, conjunctiva normal, nose normal , ears normal, throat without erythema or exudates Neck: Supple, no adenopathy Lung: breath sounds symmetric, no wheezing, rales or rhonchi Chest: symmetric movement, nontender Heart: regular rate and rhythm, normal S1, S2 no murmurs or rubs Abdomen: soft, moderate epigastric tenderness, nondistended, normal bowel sounds Back: no vertebral tenderness, no CVAT Extremities: no deformities, moves all extremities symmetrically Neuro: Awake, alert, oriented, normal speech, cranial nerves intact, moves all extremities symmetrically Psych: Pleasant, cooperative Medications Administered Generic Name Dose Route Start Last Admin Trade Name Freq PRN Reason Stop Dose Admin Sodium Chloride 1,000 mls @ 999 mls/hr 01/31/24 01:40 01/31/24 01:47 Ns IV 01/31/24 02:40 999 mls/hr .Q1H1M STA Administration Discontinued Medications Generic Name Dose Route Start Last Admin Trade Name Freq PRN Reason Stop Dose Admin Ketorolac Tromethamine 30 mg 01/31/24 01:40 01/31/24 01:46 Ketorolac Tromethamine 15 Mg/Ml Vial IVPUSH 01/31/24 01:41 30 mg ONCE STA Administration Ondansetron HCl 4 mg 01/31/24 01:40 01/31/24 01:46 Ondansetron Hcl 4 Mg/2 Ml Vial IVPUSH 01/31/24 01:41 4 mg ONCE ONE Administration Medical Decision Making Medical Decision Making MDM Narrative: 28-year-old female with a history of seizure disorder and palpitations who presents emergency department for evaluation of nausea, vomiting, epigastric pain, chills, sore throat with symptoms beginning yesterday morning. She has not been able to hold down any food or fluid. Vital signs were unremarkable. Exam did reveal moderate epigastric tenderness. Differential diagnosis: ?Includes but is not limited to viral syndrome, gastritis, pancreatitis, electrolyte abnormalities, anemia Following evaluation was ordered: CBC, liver panel, lipase, urinalysis, urine test Patient was initially treated with the following: Toradol 30 mg IV, Zofran 4 mg IV and normal saline x1 L Course: 02:00 My interpretation patient's laboratory evaluation is as follows: CBC was normal. CMP was normal. Lipase was normal. Urinalysis was negative. Urine test was negative. Patient's symptoms are consistent with acute viral syndrome. Patient will be discharged home with prescriptions for Zofran 4 mg ODT, Tylenol and ibuprofen. At the end of my shift, patient has not completed her treatment therefore patient's care was turned over to my colleague, Dr. Soares. Admission/Observation Consideration of admission/observation: Escalation of care including admission/observation considered Lab Data MDM Lab Attestation statement: I reviewed the patient's lab results. 01/31/24 00:03 01/31/24 00:03 Labs: Lab Results 01/31/24 Range/Units 00:03 WBC 9.4 (4.8-10.8) X10*3/uL RBC 4.34 (4.20-5.50) X10*6/uL Hgb 12.8 (12.0-16.0) g/dl Hct 37.9 (37.0-47.0) % MCV 87.3 (80.0-98.0) fL MCH 29.5 (27.0-33.0) pg MCHC 33.8 (31.0-35.0) g/dl RDW 12.6 (11.0-16.0) % Plt Count 285 (160-400) X10*3/uL MPV 10.0 (9.4-12.3) fL Immature Gran % (Auto) 0.2 (0.0-0.4) % Neut % (Auto) 70.6 (45-73) % Lymph % (Auto) 21.8 (20-40) % [place] % (Auto) 5.4 (2-11) % Eos % (Auto) 1.5 (0-4) % Baso % (Auto) 0.5 (0-2) % Lymph # (Auto) 2.1 (1.2-4.9) X10*3/uL [place] # (Auto) 0.5 (0.1-1.2) X10*3/uL Eos # (Auto) 0.1 (0.0-0.4) X10*3/uL Baso # (Auto) 0.1 (0.0-0.2) X10*3/uL Abs Immat Gran (auto) 0.02 (0.00-0.03) X10*3/uL Absolute Neuts (auto) 6.7 (2.0-8.3) x10*3/uL Absolute Nucleated RBC 0.000 (0.0-0.012) X10*3/uL Nucleated RBC % (auto) 0.0 (0.0-0.2) /100WBC Sodium 138 (135-145) mmol/L Potassium 3.8 (3.3-5.1) mmol/L Chloride 102 (96-108) mmol/L Carbon Dioxide 27 (22-29) mmol/L Anion Gap 13 (12-20) BUN 14 (9-16) mg/dL Creatinine 0.76 (0.5-1.4) mg/dL Estim Creat Clear Calc 106.0 Estimated GFR > 60 Random Glucose 107 (60-115) mg/dL Calcium 9.1 (8.4-10.2) mg/dL Total Bilirubin 0.4 (0.0-1.0) mg/dL Direct Bilirubin 0.2 (0.0-0.5) mg/dL AST 25 (5-31) U/L ALT 19 (0-31) U/L Alkaline Phosphatase 100 (39-117) U/L Total Protein 7.6 (6.5-8.0) g/dL Albumin 4.4 (3.5-5.0) g/dL Lipase 17 (8-78) U/L Urine Color Yellow Urine Appearance Clear Urine pH 6.5 (5.0-9.0) Ur Specific [place] 1.025 (1.005-1.025) Urine Protein Negative (Neg-Trace) mg/dL Urine Glucose (UA) Negative (Negative) mg/dL Urine Ketones Negative (Negative) mg/dL Urine Blood Negative (Negative) Urine Nitrite Negative (Negative) Ur Leukocyte Esterase Negative (Negative) Urine Test NEGATIVE (NEGATIVE) Independent Historian Clinical information obtained from an independent historian. History obtained from or confirmed by: Friend (Zeke, father to her child) Prescription Management I considered prescription management with: Pain Medication and Other (Antiemetics) Chronic Conditions Patient?s care impacted by: Other (Seizure disorder) Discharge Plan Discharge Clinical Impression: Viral syndrome, Acute dehydration Nausea & vomiting Qualifiers: Vomiting type: unspecified Qualified Code(s): R11.2 - Nausea with vomiting, unspecified Patient Disposition: Still a Patient Instructions: Viral Syndrome (ED) Additional Instructions: Your blood work was normal. Your symptoms are consistent with a virus (stomach bug) that is giving you nausea vomiting and fever. Take ibuprofen 200 mg pills, 2 pills every 6 hours as needed for pain or fever. Take Tylenol (acetaminophen) 500 mg pills, 2 pills every 6 hours as needed for pain or fever. Take Zofran ODT 4 mg pills, 1 pill dissolved in your mouth every 8 hours as needed for nausea and vomiting. For the next 24 hours, stay on a JOSE RAFAEL diet (bananas, rice, applesauce, tea and toast). Follow-up with your doctor in 2 days. Please return to the emergency department if your symptoms get worse or if you develop any symptoms that are concerning to you. Prescriptions: New acetaminophen [Tylenol Extra Strength] 500 mg tablet 1,000 mg PO Q6H PRN (Reason: fever or pain) Qty: 20 0RF ibuprofen 400 mg tablet 400 mg PO TID PRN (Reason: fever or pain) Qty: 30 0RF ondansetron 4 mg tablet,disintegrating 4 mg PO Q6-8H PRN (Reason: nausea and vomiting) Qty: 14 0RF No Action docusate sodium [Colace] 100 mg capsule 100 mg PO BID ferrous sulfate 325 mg (65 mg iron) tablet 325 mg PO BID naproxen 250 mg tablet 250 mg PO BID PRN carbamazepine [Tegretol XR] 200 mg tablet extended release 12 hr 200 mg PO BID ascorbic acid (vitamin C) [Vitamin C] 500 mg tablet,chewable See Rx Instructions .ROUTE .COMPLEX Qty: 60 3RF Dose Instruction: CHEW 1 TABLET BY MOUTH TWICE DAILY TAKE WITH FERROUS SULFATE Rx Instructions: CHEW 1 TABLET BY MOUTH TWICE DAILY TAKE WITH FERROUS SULFATE amoxicillin 500 mg capsule 1,000 mg PO BID 5 Days Qty: 20 0RF acetaminophen [Tylenol Extra Strength] 500 mg tablet 1,000 mg PO Q6H PRN (Reason: fever or pain) Qty: 20 0RF ibuprofen 600 mg tablet 600 mg PO Q6H PRN (Reason: pain) Qty: 30 0RF oxycodone 5 mg tablet 5 mg PO Q4H PRN (Reason: pain) Qty: 14 0RF Rx Instructions: Patient may request partial fill; Partial Fill upon patient request. nitrofurantoin monohyd/m-cryst [Macrobid] 100 mg capsule 100 mg PO Q12H 7 Days Qty: 14 0RF Rx Instructions: must administer with a meal/food lorazepam [Ativan] 1 mg tablet 1 mg PO BEDTIME PRN (Reason: seizure) Qty: 10 0RF
[2024-01-31] MEDS: ondansetron HCL 4 MG/2 ML VIAL IVPUSH (01:46)
[2024-01-31] MEDS: Ketorolac Tromethamine 15 MG/ML VIAL 30 MG IVPUSH (01:46)
[2024-01-31] MEDS: 0.9 % Sodium Chloride 1,000 ML 999 ML IV (01:47)
--- NOTE | 2024-01-31 02:42 | PC.NURSE ---
PT reports nausea has resolved, pain has to 4. Attempting PO trial @ this time.
[2024-01-31 03:11] VITALS: BP 96/46; PULSE 74; RESP 16; TEMP 36.4; O2SAT 98
== END 2024-01-31 03:58 | disposition home or self-care (01) ==
PROVIDERS: Emergency Provider Emergency Medicine Emergency Medical Services
DX: B34.9 Viral infection, unspecified (principal); E86.0 Dehydration; R10.13 Epigastric pain; R11.2 Nausea with vomiting, unspecified; R05.9 Cough, unspecified; Z79.899 Other long term (current) drug therapy
CPT/HCPCS: 36415; 80048; 80076; 81003; 81025; 83690; 85025; 96361; 96374; 96375; 99284; 99285; J1885; J2405

== ENCOUNTER 2024-03-27 22:09 | Emergency (ER) | payer OTHER, SELFPAY ==
[2024-03-28 00:03] VITALS: BP 102/67; PULSE 72; RESP 20; TEMP 36.7; O2SAT 99; BMI 33.2
[2024-03-28 00:35] LABS: Basophils Absolute Auto 0.1 X10*3/uL (0.0-0.2); Basophils Percent Auto 0.7 % (0-2); Eosinophils Absolute Auto 0.2 X10*3/uL (0.0-0.4); Hematocrit 37.4 % (37.0-47.0); Hemoglobin 12.8 g/dl (12.0-16.0); Imm Gran Abs Auto 0.04 X10*3/uL (0.00-0.03); Imm Gran Pct Auto 0.4 % (0.0-0.4); Lymphocytes Absolute Auto 2.9 X10*3/uL (1.2-4.9); Lymphocytes Percent Auto 31.4 % (20-40); MANUAL DIFF FLAG NO; Mean Corpuscular HGB Conc 34.2 g/dl (31.0-35.0); Mean Corpuscular Hemoglobin 30.5 pg (27.0-33.0); Monocytes Absolute Auto 0.5 X10*3/uL (0.1-1.2); Monocytes Percent Auto 5.7 % (2-11); Neutrophils Absolute Auto 5.5 x10*3/uL (2.0-8.3); Neutrophils Percent Auto 59.8 % (45-73); Platelet Count 289 X10*3/uL (160-400); Red Cell Distribution Width 12.7 % (11.0-16.0); White Blood Count 9.2 X10*3/uL (4.8-10.8)
[2024-03-28 00:37] LABS: Appearance Urine Cloudy; Color Urine Dark Yellow; Glucose Urine UA Negative (Negative); Leukocyte Esterase Urine Negative (Negative); Nitrite Urine Negative (Negative); Specific Gravity - Urine >= 1.030 (1.005-1.025); Urine Blood Negative (Negative); Urine Ketones Trace mg/dL (Negative); Urine Protein Trace mg/dL (Neg-Trace)
[2024-03-28 00:38] LABS: UPreg QC Valid YES; Urine Pregnancy NEGATIVE (NEGATIVE)
[2024-03-28 00:46] LABS: Bacteria Urine 2+ (None Seen); RBC Urine 0-2 /HPF (0-2); WBC Urine 0-5 /HPF (0-5)
[2024-03-28 00:48] LABS: Alanine Aminotransferase 19 U/L (0-31); Albumin Level 4.3 g/dL (3.5-5.0); Alkaline Phosphatase 85 U/L (39-117); Anion Gap 13 (12-20); Aspartate Amino Transferase 18 U/L (5-31); Bilirubin Total 0.7 mg/dL (0.0-1.0); Blood Urea Nitrogen 17 mg/dL (9-16); Calcium 8.9 mg/dL (8.4-10.2); Carbon Dioxide 24 mmol/L (22-29); Chloride 107 mmol/L (96-108); Creatinine Clr Calc Pharmacy 106.3; Estimated Glomerular Filt Rate > 60; Glucose Random 95 mg/dL (60-115); Potassium 3.4 mmol/L (3.3-5.1); Sodium 141 mmol/L (135-145); Total Protein 7.7 g/dL (6.5-8.0)
[2024-03-28 01:27] VITALS: BP 102/63; PULSE 58; RESP 18; TEMP 36.6; O2SAT 100
== END 2024-03-28 02:08 | disposition left against medical advice (07) ==
PROVIDERS: Emergency Provider Emergency Medicine
DX: R10.9 Unspecified abdominal pain (principal); R30.0 Dysuria; Z53.21 Procedure and treatment not carried out due to patient leaving prior to being seen by health care provider
CPT/HCPCS: 36415; 80053; 81001; 81025; 85025; 99282; 99283

== ENCOUNTER 2024-03-29 00:34 | Emergency (ER) | payer OTHER, SELFPAY ==
[2024-03-29 00:41] VITALS: BP 131/79; PULSE 83; RESP 16; TEMP 36.2; O2SAT 97; BMI 34.4
[2024-03-29 01:41] LABS: MANUAL DIFF FLAG NO
[2024-03-29 01:42] LABS: Basophils Absolute Auto 0.1 X10*3/uL (0.0-0.2); Basophils Percent Auto 0.5 % (0-2); Eosinophils Percent Auto 0.2 % (0-4); Hematocrit 37.3 % (37.0-47.0); Hemoglobin 12.7 g/dl (12.0-16.0); Imm Gran Abs Auto 0.03 X10*3/uL (0.00-0.03); Imm Gran Pct Auto 0.3 % (0.0-0.4); Lymphocytes Absolute Auto 1.5 X10*3/uL (1.2-4.9); Lymphocytes Percent Auto 15.8 % (20-40); Mean Corpuscular Hemoglobin 30.5 pg (27.0-33.0); Mean Corpuscular Volume 89.4 fL (80.0-98.0); Mean Platelet Volume 9.9 fL (9.4-12.3); Monocytes Absolute Auto 0.4 X10*3/uL (0.1-1.2); Monocytes Percent Auto 3.9 % (2-11); Neutrophils Absolute Auto 7.7 x10*3/uL (2.0-8.3); Neutrophils Percent Auto 79.3 % (45-73); Platelet Count 294 X10*3/uL (160-400); Red Blood Count 4.17 X10*6/uL (4.20-5.50); Red Cell Distribution Width 12.7 % (11.0-16.0); White Blood Count 9.7 X10*3/uL (4.8-10.8)
[2024-03-29 01:44] LABS: Appearance Urine Turbid; Color Urine Yellow; Glucose Urine UA Negative (Negative); Leukocyte Esterase Urine Trace (Negative); Nitrite Urine Negative (Negative); PH 5.5 (5.0-9.0); Specific Gravity - Urine >= 1.030 (1.005-1.025); UMIC TRIGGER UACC YES; Urine Blood Small (1+) (Negative); Urine Ketones Negative (Negative); Urine Protein Trace mg/dL (Neg-Trace)
[2024-03-29 01:54] LABS: Bacteria Urine 1+ (None Seen); Hyaline Casts Urine 0-2 /LPF (0-2); Other Crystals Urine Present; WBC Urine 0-5 /HPF (0-5)
[2024-03-29 01:58] LABS: Alanine Aminotransferase 16 U/L (0-31); Albumin Level 4.3 g/dL (3.5-5.0); Alkaline Phosphatase 86 U/L (39-117); Anion Gap 15 (12-20); Aspartate Amino Transferase 17 U/L (5-31); Bilirubin Total 0.8 mg/dL (0.0-1.0); Blood Urea Nitrogen 13 mg/dL (9-16); Calcium 9.2 mg/dL (8.4-10.2); Carbon Dioxide 22 mmol/L (22-29); Chloride 104 mmol/L (96-108); Creatinine Clr Calc Pharmacy 117.8; Estimated Glomerular Filt Rate > 60; Glucose Random 108 mg/dL (60-115); Lipase 13 U/L (8-78); Potassium 3.6 mmol/L (3.3-5.1); Sodium 137 mmol/L (135-145); Total Protein 7.6 g/dL (6.5-8.0)
== END 2024-03-29 05:07 | disposition left against medical advice (07) ==
PROVIDERS: Emergency Provider Emergency Medicine
DX: N23 Unspecified renal colic (principal); Z79.899 Other long term (current) drug therapy
CPT/HCPCS: 36415; 80053; 81001; 83690; 85025; 99282; 99283

== ENCOUNTER 2024-12-15 18:55 | Emergency (ER) | payer OTHER, SELFPAY ==
[2024-12-15 19:05] VITALS: BP 105/39; PULSE 84; RESP 16; TEMP 36.7; O2SAT 98; BMI 31.4
[2024-12-15 19:43] LABS: MANUAL DIFF FLAG NO
[2024-12-15 19:44] LABS: Basophils Percent Auto 0.4 % (0-2); Eosinophils Absolute Auto 0.1 X10*3/uL (0.0-0.4); Eosinophils Percent Auto 0.9 % (0-4); Hematocrit 33.2 % (37.0-47.0); Hemoglobin 11.3 g/dl (12.0-16.0); Imm Gran Abs Auto 0.05 X10*3/uL (0.00-0.03); Imm Gran Pct Auto 0.5 % (0.0-0.4); Lymphocytes Percent Auto 20.1 % (20-40); Mean Platelet Volume 9.5 fL (9.4-12.3); Monocytes Absolute Auto 0.5 X10*3/uL (0.1-1.2); Monocytes Percent Auto 4.8 % (2-11); Neutrophils Absolute Auto 7.3 x10*3/uL (2.0-8.3); Neutrophils Percent Auto 73.3 % (45-73); Platelet Count 225 X10*3/uL (160-400); Red Blood Count 3.65 X10*6/uL (4.20-5.50); Red Cell Distribution Width 14.3 % (11.0-16.0); White Blood Count 9.9 X10*3/uL (4.8-10.8)
--- NOTE | 2024-12-15 19:48 | ED.FEMALEGU ---
HPI - Female Genitourinary General Chief complaint: Urogenital-Female Stated complaint: 6 mnths abd pain,cramping Time Seen by Provider: 12/15/24 19:50 Related Data Home Medications ?Medication ?Instructions ?Recorded ?Confirmed carbamazepine 200 mg 200 mg PO BID 04/19/22 tablet,extended release,12 hr (Tegretol XR) docusate sodium 100 mg capsule 100 mg PO BID 04/19/22 (Colace) ferrous sulfate 325 mg (65 mg 325 mg PO BID 04/19/22 iron) tablet naproxen 250 mg tablet 250 mg PO BID PRN 04/19/22 Previous Rx's ?Medication ?Instructions ?Recorded ascorbic acid (vitamin C) 500 mg See Rx Instructions .Route 04/20/22 chewable tablet (Vitamin C) .COMPLEX #60 tabs nitrofurantoin 100 mg PO Q12H 7 days #14 caps 08/28/22 monohydrate/macrocrystals 100 mg capsule (Macrobid) acetaminophen 500 mg tablet 1,000 mg (2 x 500 mg) PO Q6H PRN 09/27/22 (Tylenol Extra Strength) fever or pain #20 tabs amoxicillin 500 mg capsule 1,000 mg (2 x 500 mg) PO BID 5 09/27/22 days #20 caps ibuprofen 600 mg tablet 600 mg PO Q6H PRN pain #30 tabs 09/27/22 oxycodone 5 mg tablet 5 mg PO Q4H PRN pain #14 tabs 09/27/22 lorazepam 1 mg tablet (Ativan) 1 mg PO BEDTIME PRN seizure #10 07/05/23 tabs acetaminophen 500 mg tablet 1,000 mg (2 x 500 mg) PO Q6H PRN 01/31/24 (Tylenol Extra Strength) fever or pain #20 tabs ibuprofen 400 mg tablet 400 mg PO TID PRN fever or pain 01/31/24 #30 tabs ondansetron 4 mg disintegrating 4 mg PO Q6-8H PRN nausea and 01/31/24 tablet vomiting #14 tabs cefuroxime axetil 250 mg tablet 250 mg PO BID #14 tabs 12/15/24 clotrimazole 1 % topical cream 1 appl topical BID #45 grams 12/15/24 Allergies Allergy/AdvReac Type Severity Reaction Status Date / Time No Known Allergies Allergy Verified 12/15/24 19:13 PMFSH Past Medical History Medical History Seizure disorder No known health problems Surgical History H/O section Social History Social History Patient Tobacco Use Status: Never used Tobacco Smoked in Last 30 Days: No Use of substances other than those prescribed or required for medical reasons: No Advance Directives: No Advance Directives Information Provided: Yes Do you have a plan to hurt others: No Plan Patient : Yes Physical Exam Vital Signs: Vital Signs: Last Vital Signs Temp 98.7 F 12/16/24 00:52 Pulse 70 12/16/24 00:52 Resp 18 12/16/24 00:52 BP 104/46 L 12/16/24 00:52 Pulse Ox 100 12/16/24 00:52 O2 Del Method Room Air 12/16/24 00:52 BMI result Body Mass Index 31.4 Medications Administered Discontinued Medications Generic Name Dose Route Start Last Admin Trade Name Freq PRN Reason Stop Dose Admin Ceftriaxone Sodium 1 gm 12/15/24 21:24 12/15/24 22:21 Ceftriaxone Sodium 1 Gm Vial IVPUSH 12/15/24 21:25 1 gm ONCE ONE Administration Medical Decision Making Lab Data 12/15/24 19:38 12/15/24 19:38 Labs: Lab Results 12/15/24 12/15/24 12/15/24 Range/Units 19:38 19:56 20:19 WBC 9.9 (4.8-10.8) X10*3/uL RBC 3.65 L (4.20-5.50) X10*6/uL Hgb 11.3 L (12.0-16.0) g/dl Hct 33.2 L (37.0-47.0) % MCV 91.0 (80.0-98.0) fL MCH 31.0 (27.0-33.0) pg MCHC 34.0 (31.0-35.0) g/dl RDW 14.3 (11.0-16.0) % Plt Count 225 (160-400) X10*3/uL MPV 9.5 (9.4-12.3) fL Immature Gran % (Auto) 0.5 H (0.0-0.4) % Neut % (Auto) 73.3 H (45-73) % Lymph % (Auto) 20.1 (20-40) % [place] % (Auto) 4.8 (2-11) % Eos % (Auto) 0.9 (0-4) % Baso % (Auto) 0.4 (0-2) % Lymph # (Auto) 2.0 (1.2-4.9) X10*3/uL [place] # (Auto) 0.5 (0.1-1.2) X10*3/uL Eos # (Auto) 0.1 (0.0-0.4) X10*3/uL Baso # (Auto) 0.0 (0.0-0.2) X10*3/uL Abs Immat Gran (auto) 0.05 H (0.00-0.03) X10*3/uL Absolute Neuts (auto) 7.3 (2.0-8.3) x10*3/uL Absolute Nucleated RBC 0.000 (0.0-0.012) X10*3/uL Nucleated RBC % (auto) 0.0 (0.0-0.2) /100WBC Sodium 136 (135-145) mmol/L Potassium 3.6 (3.3-5.1) mmol/L Chloride 107 (96-108) mmol/L Carbon Dioxide 24 (22-29) mmol/L Anion Gap 9 L (12-20) BUN 9 (9-16) mg/dL Creatinine 0.59 (0.5-1.4) mg/dL Estim Creat Clear Calc 129.4 Estimated GFR > 60 Random Glucose 88 (60-115) mg/dL Calcium 8.5 D (8.4-10.2) mg/dL Total Bilirubin 0.6 (0.0-1.0) mg/dL AST 21 (5-31) U/L ALT 14 (0-31) U/L Alkaline Phosphatase 86 (39-117) U/L Total Protein 7.1 (6.5-8.0) g/dL Albumin 3.7 (3.5-5.0) g/dL Lipase 19 (8-78) U/L Beta HCG, Quant 80052 mIU/mL Urine Color Yellow Urine Appearance Turbid Urine pH 7.5 (5.0-9.0) Ur Specific [place] 1.020 (1.005-1.025) Urine Protein Trace (Neg-Trace) mg/dL Urine Glucose (UA) Negative (Negative) mg/dL Urine Ketones Negative (Negative) mg/dL Urine Blood Negative (Negative) Urine Nitrite Negative (Negative) Ur Leukocyte Esterase Large (3+) H (Negative) Urine RBC 0-2 (0-2) /HPF Urine WBC >50 H (0-5) /HPF Ur Squamous Epith Cells 11-20 (0-2) /HPF Urine Bacteria 3+ (None Seen) Hyaline Casts 3-5 (0-2) /LPF Chlam trachomat DNA PCR NOT DETECTED (Not Detect.) N.gonorrhoeae DNA (PCR) NOT DETECTED (Not Detect.) Discharge Plan Discharge Clinical Impression: Pelvic pain during in third trimester, antepartum, Urinary tract infection, Candidiasis of genitalia Patient Disposition: [facility] Transfer Details: [facility] Prescriptions: New clotrimazole 1 % cream 1 appl topical BID Qty: 45 0RF cefuroxime axetil 250 mg tablet 250 mg PO BID Qty: 14 0RF No Action docusate sodium [Colace] 100 mg capsule 100 mg PO BID ferrous sulfate 325 mg (65 mg iron) tablet 325 mg PO BID naproxen 250 mg tablet 250 mg PO BID PRN carbamazepine [Tegretol XR] 200 mg tablet extended release 12 hr 200 mg PO BID ascorbic acid (vitamin C) [Vitamin C] 500 mg tablet,chewable See Rx Instructions .ROUTE .COMPLEX Qty: 60 3RF Dose Instruction: CHEW 1 TABLET BY MOUTH TWICE DAILY TAKE WITH FERROUS SULFATE Rx Instructions: CHEW 1 TABLET BY MOUTH TWICE DAILY TAKE WITH FERROUS SULFATE amoxicillin 500 mg capsule 1,000 mg PO BID 5 Days Qty: 20 0RF acetaminophen [Tylenol Extra Strength] 500 mg tablet 1,000 mg PO Q6H PRN (Reason: fever or pain) Qty: 20 0RF ibuprofen 600 mg tablet 600 mg PO Q6H PRN (Reason: pain) Qty: 30 0RF oxycodone 5 mg tablet 5 mg PO Q4H PRN (Reason: pain) Qty: 14 0RF Rx Instructions: Patient may request partial fill; Partial Fill upon patient request. nitrofurantoin monohyd/m-cryst [Macrobid] 100 mg capsule 100 mg PO Q12H 7 Days Qty: 14 0RF Rx Instructions: must administer with a meal/food lorazepam [Ativan] 1 mg tablet 1 mg PO BEDTIME PRN (Reason: seizure) Qty: 10 0RF acetaminophen [Tylenol Extra Strength] 500 mg tablet 1,000 mg PO Q6H PRN (Reason: fever or pain) Qty: 20 0RF ibuprofen 400 mg tablet 400 mg PO TID PRN (Reason: fever or pain) Qty: 30 0RF ondansetron 4 mg tablet,disintegrating 4 mg PO Q6-8H PRN (Reason: nausea and vomiting) Qty: 14 0RF Interventions: Acute Care Transfer Worksheet (ED) Last Done: 12/16/24 00:52 Discharge Date/Time: 12/16/24 00:58 Print Language: Amharic
--- NOTE | 2024-12-15 19:59 | ED.FEMALEGU ---
HPI - Female Genitourinary General Chief complaint: Urogenital-Female Stated complaint: 6 mnths abd pain,cramping Time Seen by Provider: 12/15/24 19:50 Source: patient Mode of arrival: ambulatory Limitations: no limitations History of Present Illness HPI Narrative: This is a 29-year-old female about 24 weeks and 3 days gestation presented to emergency department complaining of pelvic pain vaginal discharge. Denies any vaginal bleeding. MD elicited complaint: pelvic pain and genital itching Onset (ago): day(s) (2) Location of symptoms: suprapubic Severity: moderate Female Urogenital Radiation: Non-Radiating Relieving factors: none Associated symptoms: denies other symptoms Patient : Yes Possible : other (She is 24 weeks and 3 days gestation) Related Data Home Medications ?Medication ?Instructions ?Recorded ?Confirmed carbamazepine 200 mg 200 mg PO BID 04/19/22 tablet,extended release,12 hr (Tegretol XR) docusate sodium 100 mg capsule 100 mg PO BID 04/19/22 (Colace) ferrous sulfate 325 mg (65 mg 325 mg PO BID 04/19/22 iron) tablet naproxen 250 mg tablet 250 mg PO BID PRN 04/19/22 Previous Rx's ?Medication ?Instructions ?Recorded ascorbic acid (vitamin C) 500 mg See Rx Instructions .Route 04/20/22 chewable tablet (Vitamin C) .COMPLEX #60 tabs nitrofurantoin 100 mg PO Q12H 7 days #14 caps 08/28/22 monohydrate/macrocrystals 100 mg capsule (Macrobid) acetaminophen 500 mg tablet 1,000 mg (2 x 500 mg) PO Q6H PRN 09/27/22 (Tylenol Extra Strength) fever or pain #20 tabs amoxicillin 500 mg capsule 1,000 mg (2 x 500 mg) PO BID 5 09/27/22 days #20 caps ibuprofen 600 mg tablet 600 mg PO Q6H PRN pain #30 tabs 09/27/22 oxycodone 5 mg tablet 5 mg PO Q4H PRN pain #14 tabs 09/27/22 lorazepam 1 mg tablet (Ativan) 1 mg PO BEDTIME PRN seizure #10 07/05/23 tabs acetaminophen 500 mg tablet 1,000 mg (2 x 500 mg) PO Q6H PRN 01/31/24 (Tylenol Extra Strength) fever or pain #20 tabs ibuprofen 400 mg tablet 400 mg PO TID PRN fever or pain 01/31/24 #30 tabs ondansetron 4 mg disintegrating 4 mg PO Q6-8H PRN nausea and 01/31/24 tablet vomiting #14 tabs cefuroxime axetil 250 mg tablet 250 mg PO BID #14 tabs 12/15/24 clotrimazole 1 % topical cream 1 appl topical BID #45 grams 12/15/24 Allergies Allergy/AdvReac Type Severity Reaction Status Date / Time No Known Allergies Allergy Verified 12/15/24 19:13 Review of Systems Constitutional: Constitutional: Reports no additional constitutional complaints Eyes: Eyes: Reports no additional eye complaints [facility] Past Medical History Attestation statement: The following information was validated with the patient. Medical History Seizure disorder No known health problems Surgical History H/O section Social History Social History Patient Tobacco Use Status: Never used Tobacco Smoked in Last 30 Days: No Use of substances other than those prescribed or required for medical reasons: No Advance Directives: No Advance Directives Information Provided: Yes Do you have a plan to hurt others: No Plan Patient : Yes Physical Exam Vital Signs: Vital Signs: Last Vital Signs Temp 98.1 F 12/15/24 19:05 Pulse 84 12/15/24 19:05 Resp 16 12/15/24 19:05 BP 105/39 L 12/15/24 19:05 Pulse Ox 98 12/15/24 19:05 O2 Del Method Room Air 12/15/24 19:05 BMI result Body Mass Index 31.4 No acute distress vital signs stable Const: General: cooperative, comfortable and no acute distress Nutritional Appearance: average body habitus Orientation/consciousness: patient oriented x3 Limitations: no limitations HEENT: Head: Yes normal to inspection Ears: hearing grossly normal bilaterally General nose exam: Normal external nose present Face and sinus: Yes normal facial exam Mouth: Normal oral and palatal mucosa present Neck: Neck: Yes normal visual inspection and Yes full ROM Chest: Chest palpation & inspection: normal inspection of the chest Resp: Effort & Inspection: normal respiratory effort Cardio: Jugular venous distension: no JVD Rate: regular rate Rhythm: regular rhythm GI: Inspection: Yes normal to inspection Palpation (GI): Soft to palpation, not firm, nontender and no guarding Auscultation: normal bowel sounds Neuro: General: patient oriented x3 Course Reevaluation(s) Reevaluation #1: Call placed to [facility] OB Time: 20:04 Reevaluation #2: Spoke with transfer car operator at [facility] they will call me back Time: 20:15 Reevaluation #3: waiting for call back from [facility] Time: 20:50 Additional Reevaluation(s): Signed out to Dr Braswell I am off shift waiting for [facility] call back Medical Decision Making Medical Decision Making [facility] [place] Narrative: Patient presented with a pelvic pain vaginal discharge she is 24 weeks and 3 days of gestation with a bedside ultrasound that baby is active heart rate about 160 Sign-out from my colleague Dr. Galarza I spoke with the patient, patient is still having suprapubic pressure. UTI positive. Patient was given 1 dose of IV ceftriaxone Patient complaining of external genitalia itching and burning. On physical exam very erythematous, no obvious signs of herpes. Patient has mild thick whitish vaginal discharge, patient likely has candidiasis. A prescription for topical clotrimazole and p.o. cefuroxime has been sent to the patient's pharmacy. I discussed the patient with OBGYN and resident on-call, patient will be going to [facility] Patient is agreeable with plan Differential Diagnosis Differential Diagnoses: The differential diagnosis associated with the presentation includes (UTI, labor, candidiasis) Urinary tract infection/threatened ab Admission/Observation Consideration of admission/observation: Escalation of care including admission/observation considered Lab Data 12/15/24 19:38 12/15/24 19:38 Labs: Lab Results 12/15/24 12/15/24 Range/Units 19:38 19:56 WBC 9.9 (4.8-10.8) X10*3/uL RBC 3.65 L (4.20-5.50) X10*6/uL Hgb 11.3 L (12.0-16.0) g/dl Hct 33.2 L (37.0-47.0) % MCV 91.0 (80.0-98.0) fL MCH 31.0 (27.0-33.0) pg MCHC 34.0 (31.0-35.0) g/dl RDW 14.3 (11.0-16.0) % Plt Count 225 (160-400) X10*3/uL MPV 9.5 (9.4-12.3) fL Immature Gran % (Auto) 0.5 H (0.0-0.4) % Neut % (Auto) 73.3 H (45-73) % Lymph % (Auto) 20.1 (20-40) % Faulkner % (Auto) 4.8 (2-11) % Eos % (Auto) 0.9 (0-4) % Baso % (Auto) 0.4 (0-2) % Lymph # (Auto) 2.0 (1.2-4.9) X10*3/uL Fa[place]ner # (Auto) 0.5 (0.1-1.2) X10*3/uL Eos # (Auto) 0.1 (0.0-0.4) X10*3/uL Baso # (Auto) 0.0 (0.0-0.2) X10*3/uL Abs Immat Gran (auto) 0.05 H (0.00-0.03) X10*3/uL Absolute Neuts (auto) 7.3 (2.0-8.3) x10*3/uL Absolute Nucleated RBC 0.000 (0.0-0.012) X10*3/uL Nucleated RBC % (auto) 0.0 (0.0-0.2) /100WBC Sodium 136 (135-145) mmol/L Potassium 3.6 (3.3-5.1) mmol/L Chloride 107 (96-108) mmol/L Carbon Dioxide 24 (22-29) mmol/L Anion Gap 9 L (12-20) BUN 9 (9-16) mg/dL Creatinine 0.59 (0.5-1.4) mg/dL Estim Creat Clear Calc 129.4 Estimated GFR > 60 Random Glucose 88 (60-115) mg/dL Calcium 8.5 D (8.4-10.2) mg/dL Total Bilirubin 0.6 (0.0-1.0) mg/dL AST 21 (5-31) U/L ALT 14 (0-31) U/L Alkaline Phosphatase 86 (39-117) U/L Total Protein 7.1 (6.5-8.0) g/dL Albumin 3.7 (3.5-5.0) g/dL Lipase 19 (8-78) U/L Beta HCG, Quant 04649 mIU/mL Urine Color Yellow Urine Appearance Turbid Urine pH 7.5 (5.0-9.0) Ur Specific [employer] 1.020 (1.005-1.025) Urine Protein Trace (Neg-Trace) mg/dL Urine Glucose (UA) Negative (Negative) mg/dL Urine Ketones Negative (Negative) mg/dL Urine Blood Negative (Negative) Urine Nitrite Negative (Negative) Ur Leukocyte Esterase Large (3+) H (Negative) Urine RBC 0-2 (0-2) /HPF Urine WBC >50 H (0-5) /HPF Ur Squamous Epith Cells 11-20 (0-2) /HPF Urine Bacteria 3+ (None Seen) Hyaline Casts 3-5 (0-2) /LPF Critical Care Time Critical Care Time Critical Care Time: Yes Total Critical Care Time: 35 Attestation: I have personally provided critical care time. Time includes review of lab data, radiology results, discussion with consultants, and monitoring for potential decompensation. Intervention performed as documented. Discharge Plan Discharge Clinical Impression: Pelvic pain during in third trimester, antepartum Urinary tract infection Qualifiers: Urinary tract infection type: site unspecified Hematuria presence: without hematuria Qualified Code(s): N39.0 - Urinary tract infection, site not specified Patient Disposition: Still a Patient Prescriptions: No Action docusate sodium [Colace] 100 mg capsule 100 mg PO BID ferrous sulfate 325 mg (65 mg iron) tablet 325 mg PO BID naproxen 250 mg tablet 250 mg PO BID PRN carbamazepine [Tegretol XR] 200 mg tablet extended release 12 hr 200 mg PO BID ascorbic acid (vitamin C) [Vitamin C] 500 mg tablet,chewable See Rx Instructions .ROUTE .COMPLEX Qty: 60 3RF Dose Instruction: CHEW 1 TABLET BY MOUTH TWICE DAILY TAKE WITH FERROUS SULFATE Rx Instructions: CHEW 1 TABLET BY MOUTH TWICE DAILY TAKE WITH FERROUS SULFATE amoxicillin 500 mg capsule 1,000 mg PO BID 5 Days Qty: 20 0RF acetaminophen [Tylenol Extra Strength] 500 mg tablet 1,000 mg PO Q6H PRN (Reason: fever or pain) Qty: 20 0RF ibuprofen 600 mg tablet 600 mg PO Q6H PRN (Reason: pain) Qty: 30 0RF oxycodone 5 mg tablet 5 mg PO Q4H PRN (Reason: pain) Qty: 14 0RF Rx Instructions: Patient may request partial fill; Partial Fill upon patient request. nitrofurantoin monohyd/m-cryst [Macrobid] 100 mg capsule 100 mg PO Q12H 7 Days Qty: 14 0RF Rx Instructions: must administer with a meal/food lorazepam [Ativan] 1 mg tablet 1 mg PO BEDTIME PRN (Reason: seizure) Qty: 10 0RF acetaminophen [Tylenol Extra Strength] 500 mg tablet 1,000 mg PO Q6H PRN (Reason: fever or pain) Qty: 20 0RF ibuprofen 400 mg tablet 400 mg PO TID PRN (Reason: fever or pain) Qty: 30 0RF ondansetron 4 mg tablet,disintegrating 4 mg PO Q6-8H PRN (Reason: nausea and vomiting) Qty: 14 0RF Print Language: Citizen [place]
[2024-12-15 20:04] LABS: Appearance Urine Turbid; Color Urine Yellow; Glucose Urine UA Negative (Negative); Leukocyte Esterase Urine Large (3+) (Negative); Nitrite Urine Negative (Negative); PH 7.5 (5.0-9.0); UMIC TRIGGER UACC YES; Urine Blood Negative (Negative); Urine Ketones Negative (Negative); Urine Protein Trace mg/dL (Neg-Trace)
[2024-12-15 20:05] LABS: Alanine Aminotransferase 14 U/L (0-31); Albumin Level 3.7 g/dL (3.5-5.0); Alkaline Phosphatase 86 U/L (39-117); Anion Gap 9 (12-20); Aspartate Amino Transferase 21 U/L (5-31); Bilirubin Total 0.6 mg/dL (0.0-1.0); Blood Urea Nitrogen 9 mg/dL (9-16); Calcium 8.5 mg/dL (8.4-10.2); Carbon Dioxide 24 mmol/L (22-29); Chloride 107 mmol/L (96-108); Creatinine Clr Calc Pharmacy 129.4; Estimated Glomerular Filt Rate > 60; Glucose Random 88 mg/dL (60-115); Lipase 19 U/L (8-78); Potassium 3.6 mmol/L (3.3-5.1); Sodium 136 mmol/L (135-145); Total Protein 7.1 g/dL (6.5-8.0)
[2024-12-15 20:08] LABS: Bacteria Urine 3+ (None Seen); RBC Urine 0-2 /HPF (0-2); UACC Culture Trigger YES; WBC Urine >50 /HPF (0-5)
[2024-12-15 20:25] LABS: HCG Quantitative 21379 mIU/mL
[2024-12-15 21:33] VITALS: BP 106/54; PULSE 74; RESP 18; TEMP 36.8; O2SAT 100
[2024-12-15] MEDS: cefTRIAXone sodium 1 GM VIAL IVPUSH (22:21)
[2024-12-16 00:43] VITALS: BP 104/46; PULSE 70; RESP 18; TEMP 37.1; O2SAT 100
[2024-12-16 00:52] VITALS: BP 104/46; PULSE 70; RESP 18; TEMP 37.1; O2SAT 100
--- NOTE | 2024-12-16 00:54 | PC.NURSE ---
ambulance here to transport patient [facility]
--- NOTE | 2024-12-16 00:57 | PC.NURSE ---
nurse to nurse report called to Chiqui REZA
[2024-12-16 14:47] LABS: CT PCR NOT DETECTED (Not Detect.); NG PCR NOT DETECTED (Not Detect.)
== END 2024-12-16 00:58 | disposition short-term general hospital (02) ==
PROVIDERS: Emergency Provider Emergency Medicine
DX: O23.43 Unspecified infection of urinary tract in pregnancy, third trimester (principal); N39.0 Urinary tract infection, site not specified; O98.813 Other maternal infectious and parasitic diseases complicating pregnancy, third trimester; B37.31 Acute candidiasis of vulva and vagina; O26.893 Other specified pregnancy related conditions, third trimester; R10.2 Pelvic and perineal pain; Z3A.00 Weeks of gestation of pregnancy not specified
CPT/HCPCS: 36415; 80053; 81001; 83690; 84702; 85025; 87086; 87491; 87591; 96374; 99285; J0696

== ENCOUNTER 2025-06-16 17:56 | Emergency (ER) | payer OTHER, SELFPAY ==
--- NOTE | 2025-06-16 | ECG_ITS ---
Test Reason : CHEST PAIN Blood Pressure : */* mmHG Vent. Rate : 70 BPM Atrial Rate : 70 BPM P-R Int : 146 ms QRS Dur : 86 ms QT Int : 406 ms P-R-T Axes : 65 59 41 degrees QTcB Int : 438 ms Normal sinus rhythm Normal ECG When compared with ECG of 16-Jun-2025 18:14, No significant change was found Referred By: Generic ED Physician Electronically Signed By: Stiven Modi
--- NOTE | ~2025-06-16 | XR_ITS ---
CLINICAL HISTORY: cp Two views of the chest. COMPARISON: None provided. FINDINGS: Normal heart and mediastinal contours. No consolidation. No pleural effusion or pneumothorax. No acute fracture. IMPRESSION: 1. No consolidation. This document has been electronically signed by: Jordy Nolasco MD on 06/16/2025 18:41:19
[2025-06-16 18:09] VITALS: BP 112/67; PULSE 77; RESP 16; TEMP 36.6; O2SAT 100; BMI 24.9
--- NOTE | 2025-06-16 18:12 | ECG_ITS ---
Test Reason : cp Blood Pressure : */* mmHG Vent. Rate : 81 BPM Atrial Rate : 81 BPM P-R Int : 144 ms QRS Dur : 82 ms QT Int : 388 ms P-R-T Axes : 60 40 37 degrees QTcB Int : 450 ms Normal sinus rhythm Normal ECG When compared with ECG of 13-Apr-2022 22:23, No significant change was found Referred By: Rosalva Claros Electronically Signed By: Stiven Modi
--- NOTE | 2025-06-16 18:16 | ED_ITS ---
HPI - General Adult General Chief complaint: General Medical Stated complaint[place], chest pain Time Seen by Provider: 06/16/25 18:06 Source: patient Mode of arrival: ambulatory Limitations: no limitations History of Present Illness ED Provider: Pina Perea PA-C HPI narrative: Patient is a 30 year old assigned female at with a history of palpitations on propranolol presenting to the emergency department today with left sided bicep and central chest swelling / itching. Patient states that she was bit by something while in [place] on the 31 of May and has had intermittent redness, warmth, and swelling to the areas. Patient denies any dizziness, lightheadedness, abdominal pain, nausea, vomiting, fever, chills, blurry vision, double vision, loss of vision, chest pain, difficulty breathing, shortness of breath, back pain, night sweats, pain with urination, increased urinary frequency, increased urinary urgency, blood in her urine or stool, syncope or a near syncopal episode, recent trauma or falls, bowel incontinence, bladder incontinence, or any other complaints at this time. Relieving factors: none Exacerbating factors: none Associated symptoms: rash Treatments prior to arrival: none Related Data Home Medications ?Medication ?Instructions ?Recorded ?Confirmed carbamazepine 200 mg 200 mg PO BID 04/19/22 tablet,extended release,12 hr (Tegretol XR) docusate sodium 100 mg capsule 100 mg PO BID 04/19/22 (Colace) ferrous sulfate 325 mg (65 mg 325 mg PO BID 04/19/22 iron) tablet naproxen 250 mg tablet 250 mg PO BID PRN 04/19/22 Previous Rx's ?Medication ?Instructions ?Recorded ascorbic acid (vitamin C) 500 mg See Rx Instructions . Route 04/20/22 chewable tablet (Vitamin C) .COMPLEX #60 tabs nitrofurantoin 100 mg PO Q12H 7 days #14 ca ps 08/28/22 monohydrate/macrocrystals 100 mg capsule (Macrobid) acetaminophen 500 mg tablet 1,000 mg (2 x 500 mg) PO Q 6H PRN 09/27/22 (Tylenol Extra Strength) fever or pain #20 tabs amoxicillin 500 mg capsule 1,000 mg (2 x 500 mg) PO BI D 5 09/27/22 days #20 caps ibuprofen 600 mg tablet 600 mg PO Q6H PRN pain #30 t abs 09/27/22 oxycodone 5 mg tablet 5 mg PO Q4H PRN pain #14 tab s 09/27/22 lorazepam 1 mg tablet (Ativan) 1 mg PO BEDTIME PRN sei zure #10 07/05/23 tabs acetaminophen 500 mg tablet 1,000 mg (2 x 500 mg) PO Q 6H PRN 01/31/24 (Tylenol Extra Strength) fever or pain #20 tabs ibuprofen 400 mg tablet 400 mg PO TID PRN fever or p ain 01/31/24 #30 tabs ondansetron 4 mg disintegrating 4 mg PO Q6-8H PRN naus ea and 01/31/24 tablet vomiting #14 tabs cefuroxime axetil 250 mg tablet 250 mg PO BID #14 tabs 12/15/24 clotrimazole 1 % topical cream 1 appl topical BID #45 grams 12/15/24 cephalexin 500 mg capsule 500 mg PO Q6H 7 days #28 cap s 06/16/25 prednisone 20 mg tablet 20 mg PO DAILY 7 days #7 tab s 06/16/25 Allergies Allergy/AdvReac Type Severity Reaction Status Date / Time No Known Allergies Allergy Verified 06/16/25 18:10 Review of Systems 2 Constitutional: Constitutional: Reports no additional constitutional complaints, Denies chills, Denies fever(s) and Denies night sweats Eyes: Eyes: Reports no additional eye complaints, Denies blurry vision, Denies change in vision, Denies diplopia, Denies eye discharge, Denies loss of vision and Denies eye pain ENT: Denies dizziness Cardiovascular: Cardiovascular: Reports no additional cardiovascular complaints, Denies chest pain, Denies lightheadedness, Denies Loss of Consciousness and Denies dyspnea Respiratory: Respiratory: Reports no additional respiratory complaints and Denies dyspnea Gastrointestinal: Gastrointestinal: Reports no additional gastrointestinal complaints, Denies abdominal pain, Denies melena, Denies hematochezia, Denies change in bowel habits and Denies change in stool character Genitourinary: Genitourinary: Denies hematuria, Denies urinary frequency, Denies dysuria, Denies urinary incontinence, Denies urinary hesitancy and Denies urinary urgency Musculoskeletal: Musculoskeletal: Reports no additional musculoskeletal complaints, Denies numbness and Denies tingling Comments: left bicep and central chest swelling / redness / pain / itching Neurologic: Denies dizziness, Denies loss of vision, Denies numbness and Denies tingling Psychiatric: Psychiatric: Reports no additional psychiatric complaints Endocrine: Endocrine: Reports no additional endocrine complaints Hematologic/Lymphatic: Hematologic/Lymphatic: Reports no additional hematologic/lymphatic complaints Allergic/Immunologic: Allergic/Immunologic: Reports no additional allergic/immunologic complaints PMFSH Past Medical History Attestation statement: The following information was validated with the patient. Source: old records reviewed and nursing notes reviewed Medical History Seizure disorder No known health problems Surgical History H/O section Social History Social History Patient Tobacco Use Status: Never used Tobacco Smoked in Last 30 Days: No Use of substances other than those prescribed or required for medical reasons: No Advance Directives: No Advance Directives Information Provided: No Do you have a plan to hurt others: No Plan Patient : No Physical Exam ED Vital Signs: Vital Signs - 24 hr 06/16/25 18:09 06/16/25 19:20 Temperature 97.8 F 97.6 F Pulse Rate 77 73 Respiratory Rate 16 16 Blood Pressure 112/67 101/42 L Pulse Oximetry 100 100 Oxygen Delivery Method Room Air Room Air BMI result Body Mass Index 24.9 Const General: cooperative, no acute distress, alert and awake Nutritional Appearance: well nourished Orientation/consciousness: patient oriented x3 HENMT Head: Yes normal to inspection and Yes atraumatic Ears: hearing grossly normal bilaterally and external ears normal General nose exam: Normal external nose present, no nasal discharge noted and no epistaxis Face and sinus: Yes normal facial exam, No abrasion and No laceration Mouth: Normal oral and palatal mucosa present, no drooling and no muffled voice Eyes General: appearance normal, both eyes and all related structures Periorbital: periorbital findings normal Eyelids: Yes eyelids normal Conjunctivae: conjunctivae normal Pupils: Equal, round and reactive pupils present EOM: EOMs intact bilaterally Neck Neck: Yes normal visual inspection, Yes full ROM and Yes no lymphadenopathy Chest Other: small area of erythema to the central chest with warmth Resp Effort & Inspection: normal respiratory effort and able to speak in complete sentences Neuro General: patient oriented x3, moves all extremities and CN's II-XI intact bilaterally Cranial nerves: Yes Equal, round and reactive pupils present Cognition (Neuro): normal cognition Extrem Other: small area of erythema and warmth to the left bicep General: Yes full ROM and Yes capillary refill normal Psych Appearance: grossly normal Mental Status: mental status grossly normal Affect: normal affect Attitude: cooperative Thought process: Normal thought process present Thought content: Normal thought content present Insight: Good insight present (Psych) Course Course Course Narrative: Rosalva Claros [employer] 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 Defer additional HPI, ROS, PE to primary provider. 30-year-old female who reports having chest pain for several weeks. She reports that she has not been taking her cardiac medications. She did speak to her floor mechanic who recommended she come into the emergency room for an evaluation. Also reports rash to left upper extremity and chest which she noticed initially on June 01. It seemed to resolve and then return several days ago. It is itchy. Will obtain labs, CXR,EKG VSS Medical Decision Making Medical Decision Making MDM Narrative: Patient is a 30 year old assigned female at with a history of palpitations on propranolol presenting to the emergency department today with left sided bicep and central chest swelling / itching. Patient's physical exam was as noted in the physical exam portion of this note. Patient's clinical presentation is most consistent with cellulitis vs. urticaria. Patient's blood work ordered by the provider in triage was unremarkable. Patient's EKG ordered by the provider in triage was unremarkable. Patient's chest x-ray ordered by the provider in triage showed no acute process. I explained my physical exam findings as well as all test results to the patient. I answered all questions asked by the patient. I stressed the importance of the patient taking her medication as directed (either prescribed or as the over the counter packaging recommends). I stressed the importance of the patient following up with her primary care provider. I stressed the importance of the patient returning to the emergency department immediately if her symptoms were to worsen or if she were to develop any dizziness, shortness of breath, difficulty breathing, chest pain, blurry vision, loss of vision, nausea, vomiting, abdominal pain, fever, chills, back pain, or any other complaints. Patient verbalized agreement and understanding with this treatment plan and discharge. Differential Diagnosis Differential Diagnoses: The differential diagnosis associated with the presentation includes Cellulitis Urticaria Admission/Observation Consideration of admission/observation: Escalation of care including admission/observation considered Patient would have been admitted to the hospital had her work up had any findings where hospital admission was appropriate and her clinical presentation warranted hospital admission. Lab Data [facility] Lab Attestation statement: I reviewed the patient's lab results. My interpretation of these results are in the [facility] Rationale portion of this note. 06/16/25 18:57 06/16/25 18:57 Labs: Lab Results 06/16/25 Range/Units 18:57 WBC 6.4 (4.8-10.8) X10*3/uL RBC 3.79 L (4.20-5.50) X10*6/uL Hgb 9.7 L (12.0-16.0) g/dl Hct 30.2 L (37.0-47.0) % MCV 79.7 L (80.0-98.0) fL MCH 25.6 L (27.0-33.0) pg MCHC 32.1 (31.0-35.0) g/dl RDW 13.8 (11.0-16.0) % Plt Count 288 D (160-400) X10*3/uL MPV 9.8 (9.4-12.3) fL Immature Gran % (Auto) 0.3 (0.0-0.4) % Neut % (Auto) 62.4 (45-73) % Lymph % (Auto) 25.3 (20-40) % Webster % (Auto) 6.7 (2-11) % Eos % (Auto) 5.0 H (0-4) % Baso % (Auto) 0.3 (0-2) % Lymph # (Auto) 1.6 (1.2-4.9) X10*3/uL Webster # (Auto) 0.4 (0.1-1.2) X10*3/uL Eos # (Auto) 0.3 (0.0-0.4) X10*3/uL Baso # (Auto) 0.0 (0.0-0.2) X10*3/uL Abs Immat Gran (auto) 0.02 (0.00-0.03) X10*3/uL Absolute Neuts (auto) 4.0 (2.0-8.3) x10*3/uL Absolute Nucleated RBC 0.000 (0.0-0.012) X10*3/uL Nucleated RBC % (auto) 0.0 (0.0-0.2) /100WBC Sodium 144 (135-145) mmol/L Potassium 3.7 (3.3-5.1) mmol/L Chloride 108 (96-108) mmol/L Carbon Dioxide 28 (22-29) mmol/L Anion Gap 12 (12-20) BUN 13 (9-16) mg/dL Creatinine 0.76 (0.5-1.4) mg/dL Estim Creat Clear Calc 100.0 Estimated GFR > 60 Random Glucose 107 (60-115) mg/dL Calcium 8.9 (8.4-10.2) mg/dL Total Bilirubin 0.8 (0.0-1.0) mg/dL Direct Bilirubin 0.3 (0.0-0.5) mg/dL AST 25 (5-31) U/L ALT 21 (0-31) U/L Alkaline Phosphatase 93 (39-117) U/L Troponin I High Sens < 2.7 (<3.5-17.0) ng/L Total Protein 6.9 (6.5-8.0) g/dL Albumin 4.2 (3.5-5.0) g/dL Independent Interpretation I performed an independent interpretation of an: EKG and Plain X-Ray Interpretation: My interpretation is in agreement with the radiologist's impression of this imaging study. L CLINICAL HISTORY: cp Two views of the chest. COMPARISON: None provided. FINDINGS: Normal heart and mediastinal contours. No consolidation. No pleural effusion or pneumothorax. No acute fracture. IMPRESSION: 1. No consolidation. This document has been electronically signed by: Jordy Nolasco MD on 06/16/2025 18:41:19 Dictated By: Jordy Nolasco MD Signed By: Electronically signed by Jordy Nolasco MD 06/16/25 1842 I independently interpreted this EKG and am in agreement with the below findings: Vent. Rate: 81 BPM Atrial Rate: 81 BPM P-R Int: 144 ms QRS Dur: 82 ms QT Int: 388 ms P-R-T Axes: 60 40 37 degrees QTcB Int: 450 ms Normal sinus rhythm Normal ECG When compared with ECG of 13-Apr-2022 22:23, No significant change was found DD/ 1814 Radiology Impression Discussion of test interpretation with radiology: I have reviewed the radiologist's reading. Prescription Management I considered prescription management with: Antibiotic (patient prescribed an antibiotic for possible cellulitis) Discharge Plan Discharge Clinical Impression: Urticaria Cellulitis of arm Qualifiers: Laterality: left Qualified Code(s): L03.114 - Cellulitis of left upper limb Patient Disposition: Home, Self-Care Instructions: Urticaria (ED), Cellulitis (ED) Additional Instructions: Follow up with a primary care provider. Return to the emergency department immediately if your symptoms worsen or if you develop any numbness, tingling, dizziness, shortness of breath, difficulty breathing, chest pain, blurry vision, loss of vision, nausea, vomiting, abdominal pain, fever, chills, back pain, or any other complaints. L If you do not have a primary care provider - call any of the below numbers to establish and follow up with a primary care provider. [facility] [place]) [phone] [place] [address], [address] [facility] [place] [place]) [phone] [place] [address], [address] [facility], [address] [facility] [place] [place]) [phone] [place] [address], [address] [facility], [address] [facility] [place]) [phone] [place] [address], [address] [facility], [address] [facility] [phone] [address] [facility], [address] Please see the information below about our Patient Portal. If you are not yet enrolled in the [facility] Patient Portal, you will receive an enrollment email invitation following your visit to any [facility] setting. You may also self-enroll in the Patient Portal by visiting our website: [email or web address] The following information is required to access the Patient Portal: - Your [facility] Medical Record Number - Your personal home email address (must match what is in your electronic medical record, Registration staff can assist with this) - Name - Date of Capabilities of the Patient Portal: - Message some providers - View upcoming appointments - Access your health summary, medical history, and visit history - View current conditions and allergies - View procedure and lab results - View your medications, including guidelines, side effects, and precautions - Complete pre-appointment questionnaires requested by your provider - Ready summary reports of your office visits and procedures To access the Patient Portal Mobile Miguel, follow these directions: - Search [employer] in the Miguel Store or [employer] Store - Download the Miguel - Search for [facility] - Enter your login/password Prescriptions: New prednisone 20 mg tablet 20 mg PO DAILY 7 Days Qty: 7 0RF cephalexin 500 mg capsule 500 mg PO Q6H 7 Days Qty: 28 0RF No Action docusate sodium [Colace] 100 mg capsule 100 mg PO BID ferrous sulfate 325 mg (65 mg iron) tablet 325 mg PO BID naproxen 250 mg tablet 250 mg PO BID PRN carbamazepine [Tegretol XR] 200 mg tablet extended release 12 hr 200 mg PO BID ascorbic acid (vitamin C) [Vitamin C] 500 mg tablet,chewable See Rx Instructions .ROUTE .COMPLEX Qty: 60 3RF Dose Instruction: CHEW 1 TABLET BY MOUTH TWICE DAILY TAKE WITH FERROUS SULFATE Rx Instructions: CHEW 1 TABLET BY MOUTH TWICE DAILY TAKE WITH FERROUS SULFATE amoxicillin 500 mg capsule 1,000 mg PO BID 5 Days Qty: 20 0RF acetaminophen [Tylenol Extra Strength] 500 mg tablet 1,000 mg PO Q6H PRN (Reason: fever or pain) Qty: 20 0RF ibuprofen 600 mg tablet 600 mg PO Q6H PRN (Reason: pain) Qty: 30 0RF oxycodone 5 mg tablet 5 mg PO Q4H PRN (Reason: pain) Qty: 14 0RF Rx Instructions: Patient may request partial fill; Partial Fill upon patient request. nitrofurantoin monohyd/m-cryst [Macrobid] 100 mg capsule 100 mg PO Q12H 7 Days Qty: 14 0RF Rx Instructions: must administer with a meal/food lorazepam [Ativan] 1 mg tablet 1 mg PO BEDTIME PRN (Reason: seizure) Qty: 10 0RF acetaminophen [Tylenol Extra Strength] 500 mg tablet 1,000 mg PO Q6H PRN (Reason: fever or pain) Qty: 20 0RF ibuprofen 400 mg tablet 400 mg PO TID PRN (Reason: fever or pain) Qty: 30 0RF ondansetron 4 mg tablet,disintegrating 4 mg PO Q6-8H PRN (Reason: nausea and vomiting) Qty: 14 0RF clotrimazole 1 % cream 1 appl topical BID Qty: 45 0RF cefuroxime axetil 250 mg tablet 250 mg PO BID Qty: 14 0RF Print Language: Eritrean
[2025-06-16 19:02] LABS: MANUAL DIFF FLAG NO
[2025-06-16 19:04] LABS: Hematocrit 30.2 % (37.0-47.0); Hemoglobin 9.7 g/dl (12.0-16.0); Imm Gran Abs Auto 0.02 X10*3/uL (0.00-0.03); Imm Gran Pct Auto 0.3 % (0.0-0.4); Lymphocytes Absolute Auto 1.6 X10*3/uL (1.2-4.9); Mean Corpuscular HGB Conc 32.1 g/dl (31.0-35.0); Mean Corpuscular Hemoglobin 25.6 pg (27.0-33.0); Mean Corpuscular Volume 79.7 fL (80.0-98.0); NRBC Abs Auto 0.000 X10*3/uL (0.0-0.012); NRBC Pct Auto 0.0 /100WBC (0.0-0.2); Platelet Count 288 X10*3/uL (160-400); Red Blood Count 3.79 X10*6/uL (4.20-5.50); White Blood Count 6.4 X10*3/uL (4.8-10.8)
[2025-06-16 19:20] VITALS: BP 101/42; PULSE 73; RESP 16; TEMP 36.4; O2SAT 100
[2025-06-16 19:20] LABS: Alanine Aminotransferase 21 U/L (0-31); Albumin Level 4.2 g/dL (3.5-5.0); Alkaline Phosphatase 93 U/L (39-117); Anion Gap 12 (12-20); Aspartate Amino Transferase 25 U/L (5-31); Blood Urea Nitrogen 13 mg/dL (9-16); Calcium 8.9 mg/dL (8.4-10.2); Carbon Dioxide 28 mmol/L (22-29); Chloride 108 mmol/L (96-108); Creatinine Clr Calc Pharmacy 100.0; Estimated Glomerular Filt Rate > 60; Potassium 3.7 mmol/L (3.3-5.1); Sodium 144 mmol/L (135-145); Total Protein 6.9 g/dL (6.5-8.0)
--- NOTE | 2025-06-16 19:23 | PC.NURSE ---
Patient presents to ED c/o chest pain non radiating rated 6/10 for 2 weeks. Patient notified PCP and was told to go to the hospital. Denies dizziness, lightheadedness, n/v. Patient c/o SOB 100% RA. Patient also c/o itchy chest, patient noted to be scratching upper chest. Area is red and warm, no OTC used. VSS and up to date. Provider in to see patient. Plan of care on going
[2025-06-16 19:29] LABS: Troponin-I High Sensitivity < 2.7 ng/L (<3.5-17.0)
[2025-06-16 20:06] VITALS: BP 101/53; PULSE 71; RESP 16; TEMP 36.4; O2SAT 96
== END 2025-06-16 20:07 | disposition home or self-care (01) ==
PROVIDERS: Nurse Practitioner Family; Emergency Provider Emergency Medicine
DX: L03.114 Cellulitis of left upper limb (principal); R07.89 Other chest pain; L50.0 Allergic urticaria; Z79.899 Other long term (current) drug therapy
CPT/HCPCS: 36415; 71046; 80048; 80076; 84484; 85025; 93005; 99283; 99284

== ENCOUNTER → 2025-06-16 18:12 | Outpatient (BNV) | payer OTHER, SELFPAY | PROVIDERS: Emergency Provider Emergency Medicine; Visit Provider Internal Medicine Cardiovascular Disease | DX: R07.89 Other chest pain (principal) | CPT/HCPCS: 93010 ==

== ENCOUNTER → 2025-06-16 18:12 | Outpatient (BNV) | payer OTHER, SELFPAY | PROVIDERS: Visit Provider Radiology Diagnostic Radiology | DX: R07.9 Chest pain, unspecified (principal) | CPT/HCPCS: 71046 ==

== ENCOUNTER 2025-08-31 10:45 | Observation (INO) | payer OTHER, SELFPAY ==
[2025-08-31] VITALS (7 sets, daily range): BP systolic 93–160; BP diastolic 48–110; PULSE 54–88; RESP 12–20; TEMP 36.4–36.6; O2SAT 96–100; BMI 33.7; BMI 34.9
--- NOTE | ~2025-08-31 | XR_ITS ---
CLINICAL HISTORY: chest pain 1 view chest x-ray Comparison: 06/16/2025 Findings: Portions of the exam are obscured by overlying material. No consolidation or effusion. Normal size heart. No acute fracture. IMPRESSION: 1. No acute findings. This document has been electronically signed by: Juan J Cadet MD on 08/31/2025 14:26:35
--- NOTE | ~2025-08-31 | CT_ITS ---
CLINICAL HISTORY: right sided weakness CT head without contrast Comparison: None provided Findings: No intra-axial mass, midline shift, hydrocephalus, or acute hemorrhage. Complete left sphenoid sinus opacification. The orbits are within normal limits. No skull fracture. IMPRESSION: 1. No acute intracranial findings. This document has been electronically signed by: Cristina Bradford MD on 08/31/2025 11:10:43
--- NOTE | ~2025-08-31 | CT_ITS ---
CLINICAL HISTORY: right arm weakness CT angiography head and neck with contrast. 3D Postprocessing. Comparison: None provided Findings: Suboptimal arterial opacification may limited exam. Questionable attenuation of right anterior M3 branch. If clinically indicated further evaluation with MRI may be of value. Otherwise no evidence of significant arterial stenosis, aneurysm, AVM, or dissection. Incidental note of dominant right transverse/sigmoid sinuses. Patent dural venous sinuses. No evidence of abnormal intraparenchymal enhancement. No acute fracture. Mild biapical dependent lung atelectasis. IMPRESSION: Suboptimal arterial opacification may limited exam. Questionable attenuation of right anterior M3 branch. If clinically indicated further evaluation with MRI may be of value. Otherwise no evidence of significant arterial stenosis, aneurysm, AVM, or dissection. This document has been electronically signed by: Cristina Bradford MD on 08/31/2025 12:17:29
--- NOTE | 2025-08-31 10:55 | ECG_ITS ---
Test Reason : WEAKNESS Blood Pressure : */* mmHG Vent. Rate : 84 BPM Atrial Rate : 84 BPM P-R Int : 146 ms QRS Dur : 82 ms QT Int : 390 ms P-R-T Axes : 41 50 26 degrees QTcB Int : 460 ms Normal sinus rhythm with sinus arrhythmia Normal ECG When compared with ECG of 16-Jun-2025 19:33, No significant change was found Referred By: Timothy Milian Electronically Signed By: ISAIAH CRUZ
[2025-08-31 10:56] LABS: Glucose, Whole Blood 89 mg/dL (60-115)
[2025-08-31 11:18] LABS: Hematocrit 32.0 % (37.0-47.0); Hemoglobin 10.2 g/dl (12.0-16.0); Imm Gran Abs Auto 0.02 X10*3/uL (0.00-0.03); Imm Gran Pct Auto 0.4 % (0.0-0.4); Lymphocytes Absolute Auto 2.0 X10*3/uL (1.2-4.9); MANUAL DIFF FLAG NO; Mean Corpuscular HGB Conc 31.9 g/dl (31.0-35.0); Mean Corpuscular Hemoglobin 23.5 pg (27.0-33.0); Mean Corpuscular Volume 73.7 fL (80.0-98.0); NRBC Abs Auto 0.000 X10*3/uL (0.0-0.012); NRBC Pct Auto 0.0 /100WBC (0.0-0.2); Platelet Count 297 X10*3/uL (160-400); Red Blood Count 4.34 X10*6/uL (4.20-5.50); White Blood Count 5.3 X10*3/uL (4.8-10.8)
[2025-08-31] MEDS: iohexoL 350 MG/ML 100 ML INFUS..BTL IV (11:21)
[2025-08-31 11:44] LABS: Alanine Aminotransferase 18 U/L (0-31); Albumin Level 4.2 g/dL (3.5-5.0); Alkaline Phosphatase 84 U/L (39-117); Anion Gap 11 (12-20); Aspartate Amino Transferase 25 U/L (5-31); Blood Urea Nitrogen 10 mg/dL (9-16); Calcium 8.8 mg/dL (8.4-10.2); Carbon Dioxide 25 mmol/L (22-29); Chloride 107 mmol/L (96-108); Creatinine Clr Calc Pharmacy 128.8; Estimated Glomerular Filt Rate > 60; Magnesium 1.8 mg/dL (1.6-2.6); Potassium 3.5 mmol/L (3.3-5.1); Sodium 139 mmol/L (135-145); Total Protein 7.2 g/dL (6.5-8.0); Troponin-I High Sensitivity < 2.7 ng/L (<3.5-17.0)
--- NOTE | 2025-08-31 11:52 | PC.NURSE ---
Pt's torso convulsing in the bed, eyes rolled, unable to speak. Provider notified. Ordered diazepam. Shortly before that episode she was unable to speak again, but was able to nod head, yes.
[2025-08-31 11:55] LABS: Appearance Urine Clear; Glucose Urine UA Negative (Negative); PH 8.5 (5.0-9.0); Specific Gravity - Urine 1.010 (1.005-1.025); Venous Blood Gas Refer to POC result
[2025-08-31 11:56] LABS: VBG HCO3 25 mmol/L (22-26); VBG O2 % Saturation 86.0 %
--- NOTE | 2025-08-31 11:56 | ED_ITS ---
HPI - Neuro Symptoms/Deficit General Chief Complaint: Stroke Stated Complaint: STROKE ALERT/RIGHT SIDE WEAKNESS/UNRESP Time Seen by Provider: 08/31/25 10:53 History of Present Illness ED Provider: Rukhsana CHAMORRO Narrative: The patient is a 30-year-old female. She has a history of psychogenic nonepileptic seizures. She is on levetiracetam. She says that she woke up this morning at around 05:00 and felt that her right arm and her right side generally was numb. She also felt that a right arm was weak. She also felt her right leg might has been weak but not as weak as the arm. Apparently her wanted her to come to the hospital at that point but she thought that perhaps this was something simply related to her seizure disorder so she chose not to come to the hospital. Several hours later the family called an ambulance and she was brought to the hospital. medical detailist say that when they found the patient they felt that she had right-sided weakness. The patient then started to complain of chest pain and the medical detailist called for an ACLS backup but there were not available so they then brought the patient to the hospital. Just as they arrived at the hospital the patient seemed to go unresponsive but then seemed to be responsive when I saw her. She says that she has never had right arm weakness like this before. She has a bit of a headache. She has also complained of chest pain. She apparently has a recent tubal ligation, and removal of a left ovarian cyst. This was done at [facility] on 08/13/2025. Apparently her postoperative course was complicated by 3 episodes of seizure- like activity in the PACU unit after the operation. She was seen by Neurology and simply advised to resume her levetiracetam 500 mg b.i.d. Related Data Home Medications ?Medication ?Instructions ?Recorded ?Confirmed carbamazepine 200 mg 200 mg PO BID 04/19/22 tablet,extended release,12 hr (Tegretol XR) docusate sodium 100 mg capsule 100 mg PO BID 04/19/22 (Colace) ferrous sulfate 325 mg (65 mg 325 mg PO BID 04/19/22 iron) tablet naproxen 250 mg tablet 250 mg PO BID PRN 04/19/22 Previous Rx's ?Medication ?Instructions ?Recorded ascorbic acid (vitamin C) 500 mg See Rx Instructions . Route 04/20/22 chewable tablet (Vitamin C) .COMPLEX #60 tabs nitrofurantoin 100 mg PO Q12H 7 days #14 ca ps 08/28/22 monohydrate/macrocrystals 100 mg capsule (Macrobid) acetaminophen 500 mg tablet 1,000 mg (2 x 500 mg) PO Q 6H PRN 09/27/22 (Tylenol Extra Strength) fever or pain #20 tabs amoxicillin 500 mg capsule 1,000 mg (2 x 500 mg) PO BI D 5 09/27/22 days #20 caps ibuprofen 600 mg tablet 600 mg PO Q6H PRN pain #30 t abs 09/27/22 oxycodone 5 mg tablet 5 mg PO Q4H PRN pain #14 tab s 09/27/22 lorazepam 1 mg tablet (Ativan) 1 mg PO BEDTIME PRN sei zure #10 07/05/23 tabs acetaminophen 500 mg tablet 1,000 mg (2 x 500 mg) PO Q 6H PRN 01/31/24 (Tylenol Extra Strength) fever or pain #20 tabs ibuprofen 400 mg tablet 400 mg PO TID PRN fever or p ain 01/31/24 #30 tabs ondansetron 4 mg disintegrating 4 mg PO Q6-8H PRN naus ea and 01/31/24 tablet vomiting #14 tabs cefuroxime axetil 250 mg tablet 250 mg PO BID #14 tabs 12/15/24 clotrimazole 1 % topical cream 1 appl topical BID #45 grams 12/15/24 cephalexin 500 mg capsule 500 mg PO Q6H 7 days #28 cap s 06/16/25 prednisone 20 mg tablet 20 mg PO DAILY 7 days #7 tab s 06/16/25 Allergies Allergy/AdvReac Type Severity Reaction Status Date / Time No Known Allergies Allergy Verified 08/31/25 11:33 Review of Systems 2 Review of Systems: Yes all other systems are reviewed and are negative PMFSH Past Medical History Medical History Seizure disorder No known health problems Surgical History H/O section Social History Social History Patient Tobacco Use Status: Never used Tobacco Smoked in Last 30 Days: No Use of substances other than those prescribed or required for medical reasons: No Advance Directives: No Advance Directives Information Provided: Yes Physical Exam 2 Vital Signs: Vital Signs: Last Vital Signs Temp 98 F 08/31/25 13:20 Pulse 88 08/31/25 15:33 Resp 13 08/31/25 15:33 BP 99/48 L 08/31/25 15:33 Pulse Ox 98 08/31/25 15:33 O2 Del Method Room Air 08/31/25 15:33 BMI result Body Mass Index 33.7 Const: Other: The patient arrived with her eyes open. She seemed to have a somewhat dazed look in her eyes and she was slow to respond but she was able to speak to me. She did not appear in acute pain or respiratory distress. She was not moving her right arm. When I lifted her right arm I felt that there was strength in the arm but when I let go of the arm it collapsed to her side. HEENT: Other: I did not feel there was any definite facial asymmetry. Mucous membranes were moist. Tongue was midline. Eyes: Other: Pupils are round equal, conjunctivae are clear, extraocular movements intact Neck: Neck: Yes normal visual inspection, Yes full ROM and Yes no meningeal signs Resp: Effort & Inspection: normal respiratory effort Auscultation: clear to auscultation bilaterally Cardio: Rate: regular rate Rhythm: regular rhythm Heart sounds: S1 normal heart sound present and S2 normal heart sound present GI: Other: Abdomen is soft and nontender Skin: Other: Skin is pale and dry Neuro: Other: The patient has a somewhat dazed appearance but seemed to have a full level of consciousness. She seems appropriately oriented. Pupils were round, equal, and reactive to light. Face was symmetrical. I do not feel there was any tongue deviation. I did not feel there was any definite dysarthria or aphasia. The patient would not lift her right arm when I asked her to raise her arms. When I lifted her right arm I felt that there was good tone in the arm until I let go of the arm at which point the arm would fall after a brief delay. When I held the arm above the patient's head so that her hand with fall on her head her arm did not bend. The patient would not lift her right leg off the bed. Technically the patient would have an NIH stroke scale of approximately 4 for right-sided weakness but my impression was that the patient's weakness was factitious. General: no meningeal signs Extrem: Other: There is no calf swelling or tenderness. No asymmetry. No peripheral edema. Medications Administered Discontinued Medications Generic Name Dose Route Start Last Admin Trade Name Freq PRN Reason Stop Dose Admin Diazepam 10 mg 08/31/25 11:56 08/31/25 12:15 Diazepam 10 Mg/2 Ml Cartridge IVPUSH 08/31/25 11:57 10 mg STAT STA Administration Diphenhydramine HCl 25 mg 08/31/25 13:15 08/31/25 13:32 Diphenhydramine Hcl 50 Mg/Ml Vial IVPUSH 08/31/25 13:16 25 mg ONCE ONE Administration Levetiracetam 2,000 mg/ Sodium 120 mls @ 480 mls/hr 08/31/25 11:56 08/31/25 12:38 Chloride IV 08/31/25 12:10 Infused ONCE ONE Infusion Sodium Chloride 1,000 mls @ 999 mls/hr 08/31/25 13:30 08/31/25 15:25 Ns IV 08/31/25 14:30 Infused .Q1H1M BRAYAN Infusion Lactated Ringer's 1,000 mls @ 999 mls/hr 08/31/25 15:00 08/31/25 16:45 Lr IV 08/31/25 16:00 Infused .Q1H1M BRAYAN Infusion Iohexol 100 ml 08/31/25 11:21 08/31/25 11:21 Iohexol 350 Mg/Ml 100 Ml Infus..Btl IV 08/31/25 11:22 70 ml ONCE ONE Administration Ketorolac Tromethamine 15 mg 08/31/25 13:15 08/31/25 13:32 Ketorolac Tromethamine 15 Mg/Ml Vial IVPUSH 08/31/25 13:16 15 mg ONCE ONE Administration Prochlorperazine Edisylate 10 mg 08/31/25 13:15 08/31/25 13:32 Prochlorperazine Edisylate 10 Mg/2 Ml Vial IVPUSH 08/31/25 13:16 10 mg ONCE ONE Administration Medical Decision Making Medical Decision Making MDM Narrative: The patient is a 30-year-old female who presented with apparent right-sided weakness. At the time of presentation she also had seemed to have a brief episode of loss of consciousness with the medical detailist just before arriving at the hospital. Not long after she had a CT scan she had abnormal body movements potentially consistent with seizure-like activity but which did not seem to represent a septic seizure activity. Additionally the patient complained of a headache and she also complained of chest pain. A review of the patient's old records indicates a history of functional seizures. Additionally records as far back as 2020 from [facility] indicate concern for possible conversion disorder. The patient was considered for possible thrombolytic therapy for stroke because of her right-sided weakness. She says that her weakness began when she woke up at 05:00 this morning. She did not present to the emergency room until after 10:00. She is therefore outside any window for consideration of thrombolytic therapy. Furthermore I do not have a strong sense that she was actually having a stroke. After she had an episode of seizure-like activity she was given IV diazepam and also 2 g of IV levetiracetam. However, again I did not have a strong sense that she was actually having a seizure. She has a normal EKG. She has a normal chest x-ray. Labs are unremarkable. Noncontrast CT scan of the head is unremarkable. CT angiogram of the head and neck was unremarkable except for a questionable finding of possible right M3 attenuation. Since the patient's symptoms are right-sided this would not fit clinically and I think this is likely not an actual finding. On the assumption that perhaps the patient's symptoms might represent a hemiplegic migraine (she was complaining of a headache) the patient was treated with ketorolac, prochlorperazine, and diphenhydramine as well as IV fluids. Although this may have helped her headache when I reexamined her she continued to exhibit what seemed to be factitious right-sided weakness. I stood her up but she would only drag the right leg and would not walk. However when she got back into the bed she then lifted her right leg into the bed. Ultimately, despite what I feel is largely negative medical workup I feel that I am obligated to hospitalize the patient for a possible conversion disorder since she is not able to walk. She denied any significant stressors to me although she has 3 children at home. I consulted the hospitalist service and the patient will be admitted for further evaluation. Lab Data 08/31/25 11:12 08/31/25 11:12 Labs: Lab Results 08/31/25 08/31/25 08/31/25 Range/Units 10:52 11:12 11:47 WBC 5.3 (4.8-10.8) X10*3/uL RBC 4.34 (4.20-5.50) X10*6/uL Hgb 10.2 L (12.0-16.0) g/dl Hct 32.0 L (37.0-47.0) % MCV 73.7 L (80.0-98.0) fL MCH 23.5 L (27.0-33.0) pg MCHC 31.9 (31.0-35.0) g/dl RDW 16.9 H (11.0-16.0) % Plt Count 297 (160-400) X10*3/uL MPV 9.9 (9.4-12.3) fL Immature Gran % (Auto) 0.4 (0.0-0.4) % Neut % (Auto) 50.5 (45-73) % Lymph % (Auto) 37.7 (20-40) % [place] % (Auto) 8.1 (2-11) % Eos % (Auto) 2.7 (0-4) % Baso % (Auto) 0.6 (0-2) % Lymph # (Auto) 2.0 (1.2-4.9) X10*3/uL [place] # (Auto) 0.4 (0.1-1.2) X10*3/uL Eos # (Auto) 0.1 (0.0-0.4) X10*3/uL Baso # (Auto) 0.0 (0.0-0.2) X10*3/uL Abs Immat Gran (auto) 0.02 (0.00-0.03) X10*3/uL Absolute Neuts (auto) 2.7 (2.0-8.3) x10*3/uL Absolute Nucleated RBC 0.000 (0.0-0.012) X10*3/uL Nucleated RBC % (auto) 0.0 (0.0-0.2) /100WBC VBG pH (7.32-7.43) VBG pCO2 mmHg VBG pO2 mmHg VBG HCO3 (22-26) mmol/L VBG O2 Saturation % VBG Base Excess mmol/L Sodium 139 (135-145) mmol/L Potassium 3.5 (3.3-5.1) mmol/L Chloride 107 (96-108) mmol/L Carbon Dioxide 25 (22-29) mmol/L Anion Gap 11 L (12-20) BUN 10 (9-16) mg/dL Creatinine 0.61 (0.5-1.4) mg/dL Estim Creat Clear Calc 128.8 Estimated GFR > 60 POC Glucose 89 (60-115) mg/dL Random Glucose 93 (60-115) mg/dL Calcium 8.8 (8.4-10.2) mg/dL Magnesium 1.8 (1.6-2.6) mg/dL Total Bilirubin 0.7 (0.0-1.0) mg/dL Direct Bilirubin 0.3 (0.0-0.5) mg/dL AST 25 (5-31) U/L ALT 18 (0-31) U/L Alkaline Phosphatase 84 (39-117) U/L Troponin I High Sens < 2.7 (<3.5-17.0) ng/L C-Reactive Protein 0.17 (< or = 0.50) mg/dL Total Protein 7.2 (6.5-8.0) g/dL Albumin 4.2 (3.5-5.0) g/dL Beta HCG, Quant < 2 mIU/mL Urine Color Yellow Urine Appearance Clear Urine pH 8.5 (5.0-9.0) Ur Specific [employer] 1.010 (1.005-1.025) Urine Protein Negative (Neg-Trace) mg/dL Urine Glucose (UA) Negative (Negative) mg/dL Urine Ketones Negative (Negative) mg/dL Urine Blood Negative (Negative) Urine Nitrite Negative (Negative) Ur Leukocyte Esterase Negative (Negative) Urine Opiates Screen Not Detected (Not Detect) Ur Buprenorphine Scrn Not Detected (Not Detect) ng/mL Ur Oxycodone Screen Not Detected (Not Detect) ng/mL Urine Methadone Screen Not Detected (Not Detect) ng/mL Urine Fentanyl Screen Not Detected (Not Detect) Ur Barbiturates Screen Not Detected (Not Detect) Ur Phencyclidine Scrn Not Detected (Not Detect) Ur Amphetamines Screen Not Detected (Not Detect) U Benzodiazepines Scrn Not Detected (Not Detect) Urine Cocaine Screen Not Detected (Not Detect) U Marijuana (THC) Screen Not Detected (Not Detect) Ethyl Alcohol < 10 mg/dL 08/31/25 Range/Units 11:52 WBC (4.8-10.8) X10*3/uL RBC (4.20-5.50) X10*6/uL Hgb (12.0-16.0) g/dl Hct (37.0-47.0) % MCV (80.0-98.0) fL MCH (27.0-33.0) pg MCHC (31.0-35.0) g/dl RDW (11.0-16.0) % Plt Count (160-400) X10*3/uL MPV (9.4-12.3) fL Immature Gran % (Auto) (0.0-0.4) % Neut % (Auto) (45-73) % Lymph % (Auto) (20-40) % [place] % (Auto) (2-11) % Eos % (Auto) (0-4) % Baso % (Auto) (0-2) % Lymph # (Auto) (1.2-4.9) X10*3/uL [place] # (Auto) (0.1-1.2) X10*3/uL Eos # (Auto) (0.0-0.4) X10*3/uL Baso # (Auto) (0.0-0.2) X10*3/uL Abs Immat Gran (auto) (0.00-0.03) X10*3/uL Absolute Neuts (auto) (2.0-8.3) x10*3/uL Absolute Nucleated RBC (0.0-0.012) X10*3/uL Nucleated RBC % (auto) (0.0-0.2) /100WBC VBG pH 7.39 (7.32-7.43) VBG pCO2 41 mmHg VBG pO2 59 mmHg VBG HCO3 25 (22-26) mmol/L VBG O2 Saturation 86.0 % VBG Base Excess 0.5 mmol/L Sodium (135-145) mmol/L Potassium (3.3-5.1) mmol/L Chloride (96-108) mmol/L Carbon Dioxide (22-29) mmol/L Anion Gap (12-20) BUN (9-16) mg/dL Creatinine (0.5-1.4) mg/dL Estim Creat Clear Calc Estimated GFR POC Glucose (60-115) mg/dL Random Glucose (60-115) mg/dL Calcium (8.4-10.2) mg/dL Magnesium (1.6-2.6) mg/dL Total Bilirubin (0.0-1.0) mg/dL Direct Bilirubin (0.0-0.5) mg/dL AST (5-31) U/L ALT (0-31) U/L Alkaline Phosphatase (39-117) U/L Troponin I High Sens (<3.5-17.0) ng/L C-Reactive Protein (< or = 0.50) mg/dL Total Protein (6.5-8.0) g/dL Albumin (3.5-5.0) g/dL Beta HCG, Quant mIU/mL Urine Color Urine Appearance Urine pH (5.0-9.0) Ur Specific [employer] (1.005-1.025) Urine Protein (Neg-Trace) mg/dL Urine Glucose (UA) (Negative) mg/dL Urine Ketones (Negative) mg/dL Urine Blood (Negative) Urine Nitrite (Negative) Ur Leukocyte Esterase (Negative) Urine Opiates Screen (Not Detect) Ur Buprenorphine Scrn (Not Detect) ng/mL Ur Oxycodone Screen (Not Detect) ng/mL Urine Methadone Screen (Not Detect) ng/mL Urine Fentanyl Screen (Not Detect) Ur Barbiturates Screen (Not Detect) Ur Phencyclidine Scrn (Not Detect) Ur Amphetamines Screen (Not Detect) U Benzodiazepines Scrn (Not Detect) Urine Cocaine Screen (Not Detect) U Marijuana (THC) Screen (Not Detect) Ethyl Alcohol mg/dL Critical Care Time Critical Care Time Critical Care Time: Yes Total Critical Care Time: 35 Attestation: The patient was critically ill with a high probability of imminent or life- threatening deterioration. ?I spent greater than 30 minutes of discontinuous time evaluating the patient, delivering critical care at the bedside, discussing evaluating data with consultants. ?Critical care time does not include time spent performing separately billable procedures or teaching. ?Time spent performing critical care with 35 minutes. Discharge Plan Discharge Patient Disposition: Admitted As Inpatient Print Language: Tajik
--- OUTSIDE RECORDS SUMMARY | 2025-08-31 11:56 | XMS_ITS | Clinical Summary ---
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 Role Phone Unavailable Primary Care Provider Unavailabl e Social History Tobacco Use Types Packs/Day Years Used Date Smoking Tobacco: Never Assessed Comments Unknown Sex and Gender Information Value Date Recorded Sex Assigned at Not on file Legal Sex Female 4:57 PM EST Gender Identity Not on file Sexual Orientation Not on file Plan of Treatment Health Maintenance Due Date Last Done Comments DTaP,Tdap,and Td Vaccines (1 - Tdap) 2013 Hepatitis B Vaccines (1 of 3 - 19+ 3-dose series) 2013 Cervical Cancer Screening: P ap Smear 2015 HPV Vaccines (1 - 3-dose SCD M series) 2021 Depression Screening 11/28/2024 COVID-19 Vaccine ( - 2023-2 5 season) 2025 Influenza Vaccine (#1) 2025 RSV Immunization Adult Patie nts (1 - 1-dose 75+ series) 2069 HIB Vaccines Aged Out No longer eligi ble based on patient's age to complete this topic Hepatitis A Vaccines Aged Out No long er eligible based on patient's age to complete this topic IPV Vaccines Aged Out No longer eligi ble based on patient's age to complete this topic MMR Vaccines Aged Out No longer eligi ble based on patient's age to complete this topic Meningococcal ACWY Vaccine Aged Out N o longer eligible based on patient's age to complete this topic Meningococcal B Vaccine Aged Out No l onger eligible based on patient's age to complete this topic Pneumococcal Vaccine: Pediat rics (0 to 5 Years) and At-Risk Patients (6 to 49 Years) Aged Out No longer eligible b ased on patient's age to complete this topic RSV Immunization Patients Un luiz 20 months Aged Out No longer eligible b ased on patient's age to complete this topic Varicella Vaccines Aged Out No longer eligible based on patient's age to complete this topic
[2025-08-31 12:04] LABS: Cannabinoid Screen Urine Not Detected (Not Detect)
[2025-08-31] MEDS: diazePAM 10 MG/2 ML CARTRIDGE IVPUSH (12:15)
--- NOTE | 2025-08-31 12:38 | PC.NURSE ---
Pt's mental status fluctuates. She cannot currently tell me where she is, despite having given me her calling her parents and asking me to explain her situation. Still unable to move right leg or arm or hand.
--- NOTE | 2025-08-31 14:11 | PC.NURSE ---
Pt has right ankle crossed over left currently as she is resting.
[2025-08-31] MEDS: Lactated Ringers 1,000 ML 999 ML IV (15:02)
--- NOTE | 2025-08-31 15:44 | PC.NURSE ---
moving all extremities. Answering questions appropriately.
--- NOTE | 2025-08-31 17:31 | P.HPHOSP_ITS ---
History of Present Illness Date of Service: 08/31/25 Chief Complaint: Right-sided weakness 30-year-old female, with a history of psychogenic nonepileptic seizures, possible superimposed seizure disorder, on Keppra 500 mg b.i.d., poor historian, presenting to hospital with complaints of right-sided weakness. PRESENTATION The patient proves to be a very poor historian, and is very difficult to ascertain information, and timelines in an accurate manner. There are variations in the story as reported to myself and to the emergency room physician. The patient had her eyes closed during the initial visit, and was fluttering her eyes when I attempted to communicate with her. I offered an radar mechanic, to which she remains silent, continued fluttering her eyes. As I began to leave, the patient shakes her head from left to right, sit upright in bed, and reports ?I am ready now . The patient reports experiencing retrosternal chest pain, that began radiating to the right side of the arm, leading to numbness and loss of sensation of the arm. She also reports complete loss of sensation and strength of the right lower extremity, however she clarifies to me that it is only at the right foot below the ankle. Regarding the right upper extremity, the patient reports loss of sensation from the wrist down to the tips of the fingers on the right side. The patient reports also losing consciousness at home, and contacted EMS. EMS reports brief episode of loss of consciousness prior to arriving in the hospital. ED COURSE CT scan obtained urgently for potential stroke, and had abnormal body movements potentially consistent with seizure-like activity-which does not represent seizure activity . Patient complained of a headache and chest pain. Considered for possible thrombolytic therapy for CVA 2/2 the right-sided weakness. The patient was not considered for thrombolytics therapy because she was outside of therapeutic window; as per ED, there was not a strong suspicion for CVA. Patient had an episode of seizure-like activity, was given IV diazepam and IV Keppra; there was not a strong sense that she was having a seizure. Normal ECG, normal chest x-ray, unremarkable labs, noncontrast CT head unremarkable, CTA head and neck negative. Suspicious for potential hemiplegic migraine/complex migraine-given ketorolac, prochlorperazine, diphenhydramine and IV fluids. On examination from the emergency room, symptoms seem consistent with a conversion disorder and factitious right hemiplegia. Example ?I stood her up but she would only drag the right leg and would not walk. However when she got back to bed she then lifted her right leg into the bed ? EVALUATION I note the patient move her right hand multiple times during evaluation-this was pointed out to the patient as a good sign. I also noted the patient move her right leg multiple times during the evaluation. I discussed clearly with the patient that her symptoms were unlikely to be due to epileptic/seizure activity. 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 Discussed the need for psychiatry consultation. Discussed the need for further workup for likely psychogenic etiology, given negative medical workup. Patient is in agreement. Review of Systems 2 Review of Systems: Yes Unobtainable due to mental status [facility] Medical History (Updated 08/31/25 @ 17:53 by Carol Chen MD) Seizure disorder No known health problems Surgical History H/O section Social History Patient Tobacco Use Status: Never used Tobacco Smoked in Last 30 Days: No Use of substances other than those prescribed or required for medical reasons: No Advance Directives: No Advance Directives Information Provided: Yes Meds Allergies Allergy/AdvReac Type Severity Reaction Status Date / Time No Known Allergies Allergy Verified 08/31/25 11:33 Home Medications ?Medication ?Instructions ?Recorded ?Confirmed ?Last Taken ?Type carbamazepine 200 mg 200 mg PO BID 04/19/22 Unkn own History tablet,extended release,12 hr (Tegretol XR) docusate sodium 100 mg capsule 100 mg PO BID 04/19/22 Unknown History (Colace) ferrous sulfate 325 mg (65 mg 325 mg PO BID 04/19/22 Unknown History iron) tablet naproxen 250 mg tablet 250 mg PO BID PRN 04/19/22 Unknown History Physical Exam 2 Vital Signs and Narrative: Vital Signs: Last Vital Signs Temp 98 F 08/31/25 13:20 Pulse 88 08/31/25 15:33 Resp 13 08/31/25 15:33 BP 99/48 L 08/31/25 15:33 Pulse Ox 98 08/31/25 15:33 O2 Del Method Room Air 08/31/25 15:33 BMI result Body Mass Index 33.7 General: A&O x3, oriented to time place person and situation, comfortable, no pain. Fluttering eyes, lying back and sitting forward rapidly. Cardiac: S1, S2 auscultated with no S3/4, no MRG. Well perfused. Respiratory: Normal breath sounds auscultated throughout all lung zones, without wheezing, rales. Normal rate. GI/ : No abdominal pain on palpation, no masses or distentions. MSK: Normal ambulation without pain at bony prominences or musculature Neurological: Normal neurological examination on overview, without obvious CN II-XII abnormalities. No focal neurological deficits identified. Psychiatry: The patient has disorganized thought process, with challenging historical recall. It is difficult to determine if the patient has malingering tendencies versus has true memory loss. Right upper extremity and right lower extremity weakness are not true hemiplegia-has been visualized multiple times moving these extremities freely, and on stress testing. Results Labs 08/31/25 11:12 08/31/25 11:12 Labs: Laboratory Results - last 24 hr 08/31/25 08/31/25 08/31/25 10:52 11:12 11:47 MCV 73.7 L MCH 23.5 L MCHC 31.9 RDW 16.9 H Plt Count 297 MPV 9.9 Immature Gran % (Auto) 0.4 Neut % (Auto) 50.5 Lymph % (Auto) 37.7 [place] % (Auto) 8.1 Eos % (Auto) 2.7 Baso % (Auto) 0.6 Lymph # (Auto) 2.0 [place] # (Auto) 0.4 Eos # (Auto) 0.1 Baso # (Auto) 0.0 Abs Immat Gran (auto) 0.02 Absolute Neuts (auto) 2.7 Absolute Nucleated RBC 0.000 Nucleated RBC % (auto) 0.0 VBG pH VBG pCO2 VBG pO2 VBG HCO3 VBG O2 Saturation VBG Base Excess Anion Gap 11 L Estim Creat Clear Calc 128.8 Estimated GFR > 60 POC Glucose 89 Random Glucose 93 Calcium 8.8 Magnesium 1.8 Total Bilirubin 0.7 Direct Bilirubin 0.3 AST 25 ALT 18 Alkaline Phosphatase 84 Troponin I High Sens < 2.7 C-Reactive Protein 0.17 Total Protein 7.2 Albumin 4.2 Beta HCG, Quant < 2 Urine Color Yellow Urine Appearance Clear Urine pH 8.5 Ur Specific [place] 1.010 Urine Protein Negative Urine Glucose (UA) Negative Urine Ketones Negative Urine Blood Negative Urine Nitrite Negative Ur Leukocyte Esterase Negative Urine Opiates Screen Not Detected Ur Buprenorphine Scrn Not Detected Ur Oxycodone Screen Not Detected Urine Methadone Screen Not Detected Urine Fentanyl Screen Not Detected Ur Barbiturates Screen Not Detected Ur Phencyclidine Scrn Not Detected Ur Amphetamines Screen Not Detected U Benzodiazepines Scrn Not Detected Urine Cocaine Screen Not Detected U Marijuana (THC) Screen Not Detected Ethyl Alcohol < 10 08/31/25 11:52 MCV MCH MCHC RDW Plt Count MPV Immature Gran % (Auto) Neut % (Auto) Lymph % (Auto) [place] % (Auto) Eos % (Auto) Baso % (Auto) Lymph # (Auto) [place] # (Auto) Eos # (Auto) Baso # (Auto) Abs Immat Gran (auto) Absolute Neuts (auto) Absolute Nucleated RBC Nucleated RBC % (auto) VBG pH 7.39 VBG pCO2 41 VBG pO2 59 VBG HCO3 25 VBG O2 Saturation 86.0 VBG Base Excess 0.5 Anion Gap Estim Creat Clear Calc Estimated GFR POC Glucose Random Glucose Calcium Magnesium Total Bilirubin Direct Bilirubin AST ALT Alkaline Phosphatase Troponin I High Sens C-Reactive Protein Total Protein Albumin Beta HCG, Quant Urine Color Urine Appearance Urine pH Ur Specific [place] Urine Protein Urine Glucose (UA) Urine Ketones Urine Blood Urine Nitrite Ur Leukocyte Esterase Urine Opiates Screen Ur Buprenorphine Scrn Ur Oxycodone Screen Urine Methadone Screen Urine Fentanyl Screen Ur Barbiturates Screen Ur Phencyclidine Scrn Ur Amphetamines Screen U Benzodiazepines Scrn Urine Cocaine Screen U Marijuana (THC) Screen Ethyl Alcohol Assessment and Plan (1) Right sided weakness: Status: Acute (2) Conversion disorder: Status: Acute (3) Factitious disorder: Status: Acute (4) Seizure disorder: Status: Acute Plan 30-year-old female, with a history of psychogenic nonepileptic seizures, possible superimposed seizure disorder, on Keppra 500 mg b.i.d., poor historian, presenting to hospital with complaints of right-sided weakness, admitted with nonorganic right-sided weakness, 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 Nonorganic right-sided weakness Conversion disorder PNES Seizure disorder Patient has had multiple presentations to multiple facilities with pseudo seizure activity. She had a workup with [facility] in the past that showed possibility for superimposed organic seizure disorder. 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 Despite this diagnosis, the patient insists that she is unable to stand and mobilize. She has been visualized to move her arm and leg, however still reports being unable to stand and mobilize. PLAN - physical therapy - NPO - seizure precautions - 1:1 camera sitter - Keppra 500 mg b.i.d. - avoid benzodiazepines - EEG - neurology consultation tomorrow morning - psychiatry consultation [facility] [employer] - VTE: ENOXAPARIN 40 MG OD SQ - CODE STATUS: FULL CODE - DIET: NPO CURRENTLY Quality Stroke Does the patient have a stroke diagnosis?: No VTE Prior VTE?: No VTE Risk Level:: Medical - moderate - high VTE Device Contraindication: N/A - Device Ordered VTE Drug Contraindication: N/A - Med Ordered
[2025-08-31] MEDS: levETIRAcetam in NaCl (iso-os) 500 MG/100 ML PIGGYBACK 400 MG IV (19:11)
[2025-08-31] MEDS: 0.9 % Sodium Chloride Flush 3 ML SYRINGE IVFLUSH (22:18)
[2025-09-01 03:43] VITALS: BP 122/57; PULSE 70; RESP 18; TEMP 36.6; O2SAT 97
[2025-09-01] MEDS: levETIRAcetam in NaCl (iso-os) 500 MG/100 ML PIGGYBACK 400 MG IV (06:18)
--- NOTE | 2025-09-01 07:49 | PHA.MEDREC ---
Pharmacy Consult ? Medication Reconciliation Pharmacy has completed the medication reconciliation. Patient notably poor historian, utilized claim history
[2025-09-01 07:57] VITALS: BP 99/49; PULSE 57; RESP 18; TEMP 36.5; O2SAT 99
[2025-09-01] MEDS: 0.9 % Sodium Chloride Flush 3 ML SYRINGE IVFLUSH (09:54)
--- NOTE | 2025-09-01 11:07 | P.DS_ITS ---
DS: Providers Provider Date of Service: 09/01/25 Date of admission: 08/31/25 17:28 Date of discharge: 09/01/25 Primary care physician: Unknown Physician Admitting clinician: Carol Chen Consults: 09/01/25 08:35 Consult to Psychiatry Stat Consulting Provider: [facility] Psych Covering Reason for consultation: DC dependent - conversion disorder right upper& lower extremity hemiplegia Attending physician on discharge: Carol Chen DS: Diagnosis Discharge Diagnosis (1) Right sided weakness: Status: Acute (2) Conversion disorder: Status: Acute (3) Factitious disorder: Status: Acute (4) Seizure disorder: Status: Acute DS: Summary Hospital Course Hospital Course: 30-year-old female, with a history of psychogenic nonepileptic seizures, possible superimposed seizure disorder, on Keppra 500 mg b.i.d., poor historian, presenting to hospital with complaints of right-sided weakness. PRESENTATION The patient proves to be a very poor historian, and is very difficult to ascertain information, and timelines in an accurate manner. There are variations in the story as reported to myself and to the emergency room physician. The patient had her eyes closed during the initial visit, and was fluttering her eyes when I attempted to communicate with her. I offered an rn correctional, to which she remains silent, continued fluttering her eyes. As I began to leave, the patient shakes her head from left to right, sit upright in bed, and reports ?I am ready now . The patient reports experiencing retrosternal chest pain, that began radiating to the right side of the arm, leading to numbness and loss of sensation of the arm. She also reports complete loss of sensation and strength of the right lower extremity, however she clarifies to me that it is only at the right foot below the ankle. Regarding the right upper extremity, the patient reports loss of sensation from the wrist down to the tips of the fingers on the right side. The patient reports also losing consciousness at home, and contacted EMS. EMS reports brief episode of loss of consciousness prior to arriving in the hospital. ED COURSE CT scan obtained urgently for potential stroke, and had abnormal body movements potentially consistent with seizure-like activity-which does not represent seizure activity . Patient complained of a headache and chest pain. Considered for possible thrombolytic therapy for CVA 2/2 the right-sided weakness. The patient was not considered for thrombolytics therapy because she was outside of therapeutic window; as per ED, there was not a strong suspicion for CVA. Patient had an episode of seizure-like activity, was given IV diazepam and IV Keppra; there was not a strong sense that she was having a seizure. Normal ECG, normal chest x-ray, unremarkable labs, noncontrast CT head unremarkable, CTA head and neck negative. Suspicious for potential hemiplegic migraine/complex migraine-given ketorolac, prochlorperazine, diphenhydramine and IV fluids. On examination from the emergency room, symptoms seem consistent with a conversion disorder and factitious right hemiplegia. Example ?I stood her up but she would only drag the right leg and would not walk. However when she got back to bed she then lifted her right leg into the bed ? EVALUATION I note the patient move her right hand multiple times during evaluation-this was pointed out to the patient as a good sign. I also noted the patient move her right leg multiple times during the evaluation. I discussed clearly with the patient that her symptoms were unlikely to be due to epileptic/seizure activity. 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 Discussed the need for psychiatry consultation. Discussed the need for further workup for likely psychogenic etiology, given negative medical workup. Patient is in agreement. PROBLEM LIST Nonorganic right-sided weakness Conversion disorder PNES Hx of seizure disorder Patient has had multiple presentations to multiple facilities with pseudo seizure activity. She had a workup with [facility] in the past that showed possibility for superimposed organic seizure disorder. 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 Despite this diagnosis, the patient insists that she is unable to stand and mobilize. She has been visualized to move her arm and leg, however still reports being unable to stand and mobilize. On the day of discharge, the patient was able to stand walk move her right upper and lower extremities. She feels much better, and is ready to be discharged home! She will follow up with Psychiatry outpatient Status at Discharge Cognitive/behavioral status at discharge: Alert and oriented to person place time and situation Functional status at discharge: independent ambulation Overall status at discharge: patient is back to baseline Time Attestation Total time managing care of this patient today: 45 mintues. Discharge Coordination Time (in mins): 15 Quality: Safe Use of Opioids Does Pt have an Active Cancer Diagnosis on the Problem List?: No Quality: Stroke Does the patient have a stroke diagnosis?: No Physical Exam Exam: Exam: General: A&O x3, oriented to time place person and situation, comfortable, no pain Cardiac: S1, S2 auscultated with no S3/4, no MRG. Well perfused. Respiratory: Normal breath sounds auscultated throughout all lung zones, without wheezing, rales. Normal rate. GI/ : No abdominal pain on palpation, no masses or distentions. MSK: Normal ambulation without pain at bony prominences or musculature Neurological: Normal neurological examination on overview, without obvious CN II-XII abnormalities. Vital Signs: Vital Signs: Last Vital Signs Temp 97.7 F 09/01/25 07:57 Pulse 57 09/01/25 07:57 Resp 18 09/01/25 07:57 BP 99/49 L 09/01/25 07:57 Pulse Ox 99 09/01/25 07:57 O2 Del Method Room Air 09/01/25 07:57 BMI result Body Mass Index 34.9 DS: Data Data Completed and Pending Labs on day of discharge: Laboratory Results - last 24 hr 08/31/25 08/31/25 08/31/25 11:12 11:47 11:52 WBC 5.3 RBC 4.34 Hgb 10.2 L Hct 32.0 L MCV 73.7 L MCH 23.5 L MCHC 31.9 RDW 16.9 H Plt Count 297 MPV 9.9 Immature Gran % (Auto) 0.4 Neut % (Auto) 50.5 Lymph % (Auto) 37.7 [place] % (Auto) 8.1 Eos % (Auto) 2.7 Baso % (Auto) 0.6 Lymph # (Auto) 2.0 [place] # (Auto) 0.4 Eos # (Auto) 0.1 Baso # (Auto) 0.0 Abs Immat Gran (auto) 0.02 Absolute Neuts (auto) 2.7 Absolute Nucleated RBC 0.000 Nucleated RBC % (auto) 0.0 VBG pH 7.39 VBG pCO2 41 VBG pO2 59 VBG HCO3 25 VBG O2 Saturation 86.0 VBG Base Excess 0.5 Sodium 139 Potassium 3.5 Chloride 107 Carbon Dioxide 25 Anion Gap 11 L BUN 10 Creatinine 0.61 Estim Creat Clear Calc 128.8 Estimated GFR > 60 Random Glucose 93 Calcium 8.8 Magnesium 1.8 Total Bilirubin 0.7 Direct Bilirubin 0.3 AST 25 ALT 18 Alkaline Phosphatase 84 Troponin I High Sens < 2.7 C-Reactive Protein 0.17 Total Protein 7.2 Albumin 4.2 Beta HCG, Quant < 2 Urine Color Yellow Urine Appearance Clear Urine pH 8.5 Ur Specific [place] 1.010 Urine Protein Negative Urine Glucose (UA) Negative Urine Ketones Negative Urine Blood Negative Urine Nitrite Negative Ur Leukocyte Esterase Negative Urine Opiates Screen Not Detected Ur Buprenorphine Scrn Not Detected Ur Oxycodone Screen Not Detected Urine Methadone Screen Not Detected Urine Fentanyl Screen Not Detected Ur Barbiturates Screen Not Detected Ur Phencyclidine Scrn Not Detected Ur Amphetamines Screen Not Detected U Benzodiazepines Scrn Not Detected Urine Cocaine Screen Not Detected U Marijuana (THC) Screen Not Detected Ethyl Alcohol < 10 Discharge Plan Discharge Anticipated Discharge Date/Time: 09/01/25 11:09 Patient Disposition: Home, Self-Care Discharge Diagnosis: Psychogenic nonepileptic seizures and conversion disorder, presenting with right-sided upper and lower extremity weakness Referrals: Physician,Allison J [Primary Care Provider, Medical] - 1 Week Discharge Medications: No Action sennosides [senna] 8.6 mg tablet 17.2 mg PO BEDTIME PRN (Reason: constipation) acetaminophen 325 mg tablet 975 mg PO QID PRN (Reason: pain) levetiracetam 500 mg tablet 500 mg PO BID ibuprofen 200 mg tablet 600 mg PO QID PRN (Reason: fever) polyethylene glycol 3350 [Gavilax] 17 gram/dose powder 17 g PO DAILY simethicone 80 mg tablet,chewable 80 mg PO TIDAC simethicone 80 mg tablet,chewable 80 mg PO BEDTIME Discharge Orders: Discharge Order (Routine); Ordered 09/01/25 Ordered By: Carol Chen Diet: Advance to usual diet Activity on Discharge: As tolerated Stand Alone Forms: Patient Portal Discharge page Print Language: Amharic Care Plan Goals: As above Health Concerns: As above Plan of Treatment: Follow up outpatient psychiatry within 1 week of discharge Follow up with outpatient Neurology Follow up with PCP within 1 week of discharge Assessment: Patient is deemed to be hemodynamically stable for discharge. No need for continued inpatient admission. The patient is alert and oriented to person place time and situation
[2025-09-01 12:37] VITALS: BP 99/58; PULSE 68; RESP 12; TEMP 36.1; O2SAT 98
--- NOTE | 2025-09-01 12:55 | MHC.CM.PN ---
PT LIVES WITH FAMILY AND IS INDEPENDENT WITH CARE/MOBILITY SHE WILL DC HOME TODAY WITH NO SERVICES VIA [facility]
== END 2025-09-01 13:13 | disposition home or self-care (01) ==
LOC: HO.ED 16:57 → HO.EDOVER 17:33 → HO.S3 20:09
PROVIDERS: Admitting Provider Hospitalist; Emergency Provider Emergency Medicine; Visit Provider Hospitalist
DX: F44.5 Conversion disorder with seizures or convulsions (principal); F68.10 Factitious disorder imposed on self, unspecified; R53.1 Weakness; R07.9 Chest pain, unspecified; Z79.899 Other long term (current) drug therapy
CPT/HCPCS: 36415; 70450; 70496; 70498; 71045; 80048; 80076; 80307; 81003; 82803; 82947; 83735; 84484; 84702; 85025; 86140; 93005; 96361; 96365; 96366; 96372; 96375; 99221; 99285; J0737; J1200; J1650; J1885; J1953; J3360; J7120; Q9967

== ENCOUNTER → 2025-08-31 10:53 | Outpatient (BNV) | payer OTHER, SELFPAY | PROVIDERS: Emergency Provider Emergency Medicine; Visit Provider Radiology Diagnostic Radiology | DX: R53.1 Weakness (principal); R20.2 Paresthesia of skin; R07.9 Chest pain, unspecified | CPT/HCPCS: 70450; 70496; 70498; 71045 ==

== ENCOUNTER → 2025-08-31 10:55 | Outpatient (BNV) | payer OTHER, SELFPAY | PROVIDERS: Admitting Provider Hospitalist; Emergency Provider Emergency Medicine; Visit Provider Internal Medicine | DX: R41.82 Altered mental status, unspecified (principal) | CPT/HCPCS: 93010 ==

== ENCOUNTER → 2025-08-31 17:28 | Outpatient (BNV) | payer OTHER, SELFPAY | PROVIDERS: Admitting Provider Hospitalist; Emergency Provider Emergency Medicine; Visit Provider Hospitalist | DX: R53.1 Weakness (principal); F44.9 Dissociative and conversion disorder, unspecified; F68.10 Factitious disorder imposed on self, unspecified; G40.909 Epilepsy, unspecified, not intractable, without status epilepticus | CPT/HCPCS: 99239 ==